=== PATIENT | male | born 1950 | race Two or more races ===

== ENCOUNTER 2022-02-09 15:04 | Inpatient (IN) | payer MEDICARE ==
[~2022-02-09] VITALS: Ht 152.4 cm; Wt 75.0 kg
[2022-02-09 16:10] LABS: COVID AG,FIA SOURCE NASAL SWAB
[2022-02-09 16:13] LABS: BASOPHILS % (AUTO) 0.5 % (0.0-2.0); EOSINOPHILS % (AUTO) 1.4 % (1.0-6.0); HEMATOCRIT 40.3 % (41-53); HEMOGLOBIN 14.3 g/dL (13.5-17.5); LYMPHOCYTES # (AUTO) 0.7 K/uL (1.0-4.8); LYMPHOCYTES % (AUTO) 13.9 % (22.0-44.0); MEAN CORPUSCULAR HEMOGLOBIN 30.1 pg (26.0-34.0); MEAN CORPUSCULAR HGB CONC 35.5 G/dL (31.0-37.0); MEAN CORPUSCULAR VOLUME 85 fL (80-100); MONOCYTES # (AUTO) 0.3 K/uL (0.1-1.0); MONOCYTES % (AUTO) 6.1 % (2.0-9.0); NEUTROPHILS # (AUTO) 3.8 K/uL (1.8-7.7); NEUTROPHILS % (AUTO) 78.1 % (40.0-70.0); PLATELET COUNT (AUTO) 169 K/uL (150-450); RED BLOOD CELL COUNT(AUTO) 4.75 MIL/uL (4.50-5.90); RED CELL DISTRIBUTION WIDTH 13.9 % (11.5-14.5)
[2022-02-09 16:27] LABS: ANION GAP 5 mmol/L (8-16); CALCIUM, TOTAL 9.4 mg/dL (8.8-10.5); CARBON DIOXIDE 33 mmol/L (22-29); CHLORIDE 95 mmol/L (98-107); CREATININE 0.84 mg/dL (0.60-1.30); GLOMERULAR FILTR. RATE CALC > 60 mL/min (>60); GLUCOSE,RANDOM 108 mg/dL (70-110); POTASSIUM 3.3 mmol/L (3.5-5.1); SODIUM SERUM 133 mmol/L (136-145); UREA NITROGEN, BLOOD 12 mg/dL (7-18)
[2022-02-09 16:42] LABS: ALANINE AMINOTRANSFERASE 13 U/L (12-78); ALKALINE PHOSPHATASE 72 U/L (46-116); ASPARTATE AMINOTRANSFERASE 19 U/L (15-37); BILIRUBIN,TOTAL 0.9 mg/dL (0.1-1.0); THYROID STIMULATING HORMONE 3.48 uIU/mL (0.36-3.74); TOTAL PROTEIN, SERUM 7.9 g/dL (6.4-8.2)
[2022-02-09 17:50] LABS: APPEARANCE,URINE CLEAR (CLEAR); BILIRUBIN,URINE NEGATIVE (NEGATIVE); GLUCOSE, URINE (UA) NEGATIVE (NEGATIVE); KETONES,URINE NEGATIVE (NEGATIVE); LEUKOCYTE ESTERASE ,URINE NEGATIVE (NEGATIVE); NITRATE,URINE NEGATIVE (NEGATIVE); OCCULT BLOOD,URINE MODERATE (NEGATIVE); PH,URINE 6.5 (5.0-8.0); PROTEIN,URINE NEGATIVE (NEGATIVE); UROBILINOGEN,URINE <=1.0 mg/dL (<=1.0)
[2022-02-09 17:56] LABS: AMPHET/METH SCREEN,URINE NEGATIVE (NEGATIVE); BARBITURATE SCREEN, URINE NEGATIVE (NEGATIVE); BENZODIAZEPINES SCREEN,URINE NEGATIVE (NEGATIVE); CANNABINOID SCREEN,URINE NEGATIVE (NEGATIVE); COCAINE SCREEN,URINE NEGATIVE (NEGATIVE); METHADONE SCREEN, URINE NEGATIVE (NEGATIVE); OPIATE SCREEN,URINE NEGATIVE (NEGATIVE)
[2022-02-09 18:03] LABS: PHENCYCLIDINE SCREEN,URINE NEGATIVE (NEGATIVE)
[2022-02-09 18:31] LABS: BACTERIA,URINE None Seen /HPF (None Seen); WBC,URINE 0-2 /HPF (0-5)
[2022-02-09] MEDS ORDERED: ZOLPIDEM TARTRATE 10 MG TABLET PO PRN (21:30)
[2022-02-09] MEDS ORDERED: HALOPERIDOL 5 MG TABLET PO PRN (21:30)
[2022-02-10 01:05] VITALS: BP 149/71
[2022-02-10] MEDS ORDERED: CloNIDine HCL 0.1 MG TABLET PO PRN (06:45)
[2022-02-10] MEDS ORDERED: BENZOCAINE/MENTHOL LOZENGE PO PRN (06:45)
[2022-02-10] MEDS ORDERED: IBUPROFEN 600 MG TABLET PO PRN (06:45)
[2022-02-10] MEDS ORDERED: DOCUSATE SODIUM 100 MG CAPSULE PO PRN (06:45)
[2022-02-10] MEDS ORDERED: ONDANSETRON HCL 4 MG TABLET PO PRN (06:45)
[2022-02-10] MEDS ORDERED: POTASSIUM CHLORIDE 20 MEQ ER TABLET PO ONE (06:45)
[2022-02-10] MEDS ORDERED: PETROLATUM,WHITE 28 GM JELLY TP PRN (06:45)
[2022-02-10] MEDS ORDERED: MAG HYDROX/AL HYDROX/SIMETH ES 30 ML SUSPENSION UDCUP PO PRN (06:45)
[2022-02-10] MEDS ORDERED: ALBUTEROL SULFATE HFA 90 MCG/PUFF 8 GM INHALER IH PRN (06:45)
[2022-02-10] MEDS ORDERED: MAGNESIUM HYDROXIDE SUSPENSION 30 ML UDCUP PO PRN (06:45)
[2022-02-10] MEDS ORDERED: BACITRACIN 28 GM OINTMENT TP PRN (06:45)
[2022-02-10 08:09] VITALS: BP 128/55
[2022-02-10 09:01] VITALS: BP 128/55
[2022-02-10 13:37] VITALS: BP 128/55
[2022-02-10 16:08] VITALS: BP 111/74
[2022-02-10 16:11] VITALS: BP 111/67
[2022-02-10] MEDS: RisperiDONE 0.5 MG TABLET PO SCH (20:16)
[2022-02-10] MEDS: TraZODone HCL 50 MG TABLET PO SCH (20:16)
[2022-02-11 06:46] LABS: ANION GAP 5 mmol/L (8-16); CALCIUM, TOTAL 9.1 mg/dL (8.8-10.5); CARBON DIOXIDE 29 mmol/L (22-29); CHLORIDE 101 mmol/L (98-107); CREATININE 0.78 mg/dL (0.60-1.30); GLOMERULAR FILTR. RATE CALC > 60 mL/min (>60); GLUCOSE,RANDOM 87 mg/dL (70-110); POTASSIUM 3.9 mmol/L (3.5-5.1); SODIUM SERUM 135 mmol/L (136-145); UREA NITROGEN, BLOOD 18 mg/dL (7-18)
[2022-02-11 08:00] VITALS: BP 116/80
[2022-02-11] MEDS: ESCITALOPRAM OXALATE 10 MG TABLET PO SCH (10:24)
[2022-02-11 16:09] VITALS: BP 135/79
[2022-02-11] MEDS: RisperiDONE 0.5 MG TABLET PO SCH (20:05)
[2022-02-11] MEDS: TraZODone HCL 50 MG TABLET PO SCH (20:05)
[2022-02-12 04:01] VITALS: BP 131/96
[2022-02-12] MEDS: LORazepam 2 MG TABLET PO PRN (04:12)
[2022-02-12] MEDS: ESCITALOPRAM OXALATE 10 MG TABLET PO SCH (08:24)
[2022-02-12 08:55] VITALS: BP 134/76
[2022-02-12 16:31] VITALS: BP 119/69
[2022-02-12] MEDS: RisperiDONE 0.5 MG TABLET PO SCH (20:08)
[2022-02-12] MEDS: TraZODone HCL 50 MG TABLET PO SCH (20:08)
[2022-02-13 08:22] VITALS: BP 119/58
[2022-02-13] MEDS: ESCITALOPRAM OXALATE 10 MG TABLET PO SCH (09:05)
[2022-02-13 12:13] VITALS: BP 125/64
[2022-02-13] MEDS: ACETAMINOPHEN 325 MG TABLET PO PRN (12:13)
[2022-02-13 13:14] VITALS: BP 132/62
[2022-02-13 16:03] VITALS: BP 120/75
[2022-02-13] MEDS: RisperiDONE 0.5 MG TABLET PO SCH (20:11)
[2022-02-13] MEDS: TraZODone HCL 50 MG TABLET PO SCH (20:11)
[2022-02-14 00:34] VITALS: BP 131/61
[2022-02-14] MEDS: ACETAMINOPHEN 325 MG TABLET PO PRN (00:34)
[2022-02-14] MEDS: LORazepam 2 MG TABLET PO PRN (00:34)
[2022-02-14] MEDS: ESCITALOPRAM OXALATE 10 MG TABLET PO SCH (08:27)
[2022-02-14 08:40] VITALS: BP 155/78
[2022-02-14] MEDS: OMEPRAZOLE 20 MG CAPSULE PO PRN (12:36)
[2022-02-14 17:00] VITALS: BP_SYST 115; BP_SYST 121; BP_DIAS 70; BP_DIAS 73
[2022-02-14] MEDS: TraZODone HCL 50 MG TABLET PO SCH (20:07)
[2022-02-14] MEDS: RisperiDONE 0.5 MG TABLET PO SCH (20:07)
[2022-02-15] MEDS: ESCITALOPRAM OXALATE 10 MG TABLET PO SCH (09:31)
[2022-02-15] MEDS: LOPERAMIDE HCL 2 MG CAPSULE PO PRN ×2 (10:44→17:01)
[2022-02-15 16:55] VITALS: BP 121/67
[2022-02-15] MEDS: TraZODone HCL 50 MG TABLET PO SCH (20:20)
[2022-02-15] MEDS: RisperiDONE 0.5 MG TABLET PO SCH (20:20)
[2022-02-15 21:10] LABS: HEMOGLOBIN 13.8 g/dL (13.5-17.5)
[2022-02-16 01:42] VITALS: BP 122/57
[2022-02-16] MEDS: ACETAMINOPHEN 325 MG TABLET PO PRN (01:42)
[2022-02-16] MEDS: LORazepam 2 MG TABLET PO PRN (01:42)
[2022-02-16 02:42] VITALS: BP 122/57
[2022-02-16 06:36] LABS: C.DIFF GDH ANTIGEN, Stool Negative (Negative); C.DIFF TOXINS A&B, Stool Negative (Negative)
[2022-02-16 08:01] VITALS: BP 104/41
[2022-02-16] MEDS: ESCITALOPRAM OXALATE 10 MG TABLET PO SCH (08:06)
[2022-02-16 13:23] LABS: COVID AG,FIA SOURCE NASAL SWAB
[2022-02-16 16:08] VITALS: BP 115/59
[2022-02-16] MEDS: LOPERAMIDE HCL 2 MG CAPSULE PO PRN (18:53)
[2022-02-16] MEDS: RisperiDONE 0.5 MG TABLET PO SCH (20:10)
[2022-02-16] MEDS: TraZODone HCL 50 MG TABLET PO SCH (20:10)
[2022-02-17 00:37] VITALS: BP 118/65
[2022-02-17 08:05] VITALS: BP 137/61
[2022-02-17] MEDS: ESCITALOPRAM OXALATE 10 MG TABLET PO SCH (10:04)
[2022-02-17] MEDS: POLYETHYLENE GLYCOL 3350 17 GM PACKET PO SCH (10:05)
[2022-02-17] MEDS: SENNA 218 MG/5 ML LIQUID ORAL.SYG PO SCH ×2 (10:06→17:00)
[2022-02-17] MEDS: PHENYLEPHRINE/SHK LV/MIN OIL/PET 57 GM OINTMENT TP SCH ×2 (10:08→17:02)
[2022-02-17] MEDS: OMEPRAZOLE 20 MG CAPSULE PO PRN (11:33)
[2022-02-17] MEDS: LOPERAMIDE HCL 2 MG CAPSULE PO PRN (17:03)
[2022-02-17 17:52] VITALS: BP 106/68
[2022-02-17] MEDS: RisperiDONE 0.5 MG TABLET PO SCH (20:29)
[2022-02-17] MEDS: TraZODone HCL 50 MG TABLET PO SCH (20:29)
[2022-02-18 06:40] VITALS: BP 117/56
[2022-02-18] MEDS: POLYETHYLENE GLYCOL 3350 17 GM PACKET PO SCH (08:26)
[2022-02-18] MEDS: SENNA 218 MG/5 ML LIQUID ORAL.SYG PO SCH ×2 (08:27→16:42)
[2022-02-18] MEDS: PHENYLEPHRINE/SHK LV/MIN OIL/PET 57 GM OINTMENT TP SCH ×2 (08:27→16:17)
[2022-02-18] MEDS: ESCITALOPRAM OXALATE 10 MG TABLET PO SCH (08:28)
[2022-02-18 08:44] VITALS: BP 114/58
[2022-02-18] MEDS: LOPERAMIDE HCL 2 MG CAPSULE PO PRN ×2 (15:55→20:14)
[2022-02-18 16:03] VITALS: BP 127/63
[2022-02-18] MEDS: TraZODone HCL 50 MG TABLET PO SCH (20:14)
[2022-02-18] MEDS: RisperiDONE 0.5 MG TABLET PO SCH (20:14)
[2022-02-19 08:30] VITALS: BP 111/56
[2022-02-19] MEDS: SENNA 218 MG/5 ML LIQUID ORAL.SYG PO SCH ×2 (08:35→16:31)
[2022-02-19] MEDS: ESCITALOPRAM OXALATE 10 MG TABLET PO SCH (08:36)
[2022-02-19] MEDS: PHENYLEPHRINE/SHK LV/MIN OIL/PET 57 GM OINTMENT TP SCH ×2 (08:36→16:31)
[2022-02-19] MEDS: POLYETHYLENE GLYCOL 3350 17 GM PACKET PO SCH ×2 (08:38→09:00)
[2022-02-19 10:48] VITALS: BP 111/42
[2022-02-19 16:15] VITALS: BP 145/60
[2022-02-19] MEDS: TraZODone HCL 50 MG TABLET PO SCH (20:30)
[2022-02-19] MEDS: RisperiDONE 0.5 MG TABLET PO SCH (20:30)
[2022-02-20] MEDS: POLYETHYLENE GLYCOL 3350 17 GM PACKET PO SCH (09:29)
[2022-02-20] MEDS: SENNA 218 MG/5 ML LIQUID ORAL.SYG PO SCH ×3 (09:29→17:00)
[2022-02-20] MEDS: ESCITALOPRAM OXALATE 10 MG TABLET PO SCH (09:29)
[2022-02-20 09:32] VITALS: BP 118/59
[2022-02-20 16:11] VITALS: BP 120/57
[2022-02-20] MEDS: RisperiDONE 0.5 MG TABLET PO SCH (20:05)
[2022-02-20] MEDS: TraZODone HCL 50 MG TABLET PO SCH (20:05)
[2022-02-21 08:41] VITALS: BP 124/62
[2022-02-21] MEDS: SENNA 218 MG/5 ML LIQUID ORAL.SYG PO SCH ×3 (09:00→17:00)
[2022-02-21] MEDS: POLYETHYLENE GLYCOL 3350 17 GM PACKET PO SCH (09:00)
[2022-02-21] MEDS: ESCITALOPRAM OXALATE 10 MG TABLET PO SCH (09:15)
[2022-02-21 16:26] VITALS: BP 104/54
[2022-02-21] MEDS: RisperiDONE 0.5 MG TABLET PO SCH (20:30)
[2022-02-21] MEDS: TraZODone HCL 50 MG TABLET PO SCH (20:30)
[2022-02-21] MEDS: LOPERAMIDE HCL 2 MG CAPSULE PO PRN (22:05)
[2022-02-22] MEDS: LOPERAMIDE HCL 2 MG CAPSULE PO PRN (07:07)
[2022-02-22 08:00] VITALS: BP 121/58
[2022-02-22] MEDS: POLYETHYLENE GLYCOL 3350 17 GM PACKET PO SCH (10:00)
[2022-02-22] MEDS: ESCITALOPRAM OXALATE 10 MG TABLET PO SCH (10:00)
[2022-02-22 17:09] VITALS: BP 140/80
[2022-02-22] MEDS: TraZODone HCL 50 MG TABLET PO SCH (20:26)
[2022-02-22] MEDS: RisperiDONE 0.5 MG TABLET PO SCH (20:26)
[2022-02-23 09:00] VITALS: BP 117/59
[2022-02-23] MEDS: ESCITALOPRAM OXALATE 10 MG TABLET PO SCH (09:00)
[2022-02-23] MEDS: POLYETHYLENE GLYCOL 3350 17 GM PACKET PO SCH (09:02)
[2022-02-23 16:59] VITALS: BP 125/69
[2022-02-23] MEDS: TraZODone HCL 50 MG TABLET PO SCH (20:03)
[2022-02-23] MEDS: RisperiDONE 0.5 MG TABLET PO SCH (20:03)
[2022-02-23 21:05] LABS: COVID AG,FIA SOURCE NASAL SWAB
[2022-02-24 08:30] VITALS: BP 124/56
[2022-02-24] MEDS: ESCITALOPRAM OXALATE 10 MG TABLET PO SCH (09:03)
[2022-02-24] MEDS: POLYETHYLENE GLYCOL 3350 17 GM PACKET PO SCH (09:05)
[2022-02-24 16:44] VITALS: BP 103/55
[2022-02-24] MEDS: RisperiDONE 0.5 MG TABLET PO SCH (20:24)
[2022-02-24] MEDS: TraZODone HCL 50 MG TABLET PO SCH (20:24)
[2022-02-25 08:00] VITALS: BP 120/63
[2022-02-25] MEDS: POLYETHYLENE GLYCOL 3350 17 GM PACKET PO SCH (09:06)
[2022-02-25] MEDS: ESCITALOPRAM OXALATE 10 MG TABLET PO SCH (09:06)
[2022-02-25 18:10] VITALS: BP 119/63
[2022-02-25] MEDS: RisperiDONE 0.5 MG TABLET PO SCH (20:03)
[2022-02-25] MEDS: TraZODone HCL 50 MG TABLET PO SCH (20:03)
[2022-02-26 09:19] VITALS: BP 128/54
[2022-02-26] MEDS: ESCITALOPRAM OXALATE 10 MG TABLET PO SCH (09:50)
[2022-02-26] MEDS: POLYETHYLENE GLYCOL 3350 17 GM PACKET PO SCH (09:50)
[2022-02-26 16:47] VITALS: BP 124/79
[2022-02-26] MEDS: RisperiDONE 0.5 MG TABLET PO SCH (20:10)
[2022-02-26] MEDS: TraZODone HCL 50 MG TABLET PO SCH (20:10)
[2022-02-27 08:00] VITALS: BP 148/69
[2022-02-27] MEDS: POLYETHYLENE GLYCOL 3350 17 GM PACKET PO SCH (08:42)
[2022-02-27] MEDS: ESCITALOPRAM OXALATE 10 MG TABLET PO SCH (08:42)
[2022-02-27 16:23] VITALS: BP 124/76
[2022-02-27] MEDS: RisperiDONE 0.5 MG TABLET PO SCH (20:54)
[2022-02-27] MEDS: TraZODone HCL 50 MG TABLET PO SCH (20:54)
[2022-02-28] MEDS: POLYETHYLENE GLYCOL 3350 17 GM PACKET PO SCH (09:36)
[2022-02-28] MEDS: ESCITALOPRAM OXALATE 10 MG TABLET PO SCH (09:37)
[2022-02-28 11:15] VITALS: BP 147/61
[2022-02-28 13:30] VITALS: BP 145/67
[2022-02-28 16:38] VITALS: BP 134/63
[2022-02-28] MEDS: RisperiDONE 0.5 MG TABLET PO SCH (20:18)
[2022-02-28] MEDS: TraZODone HCL 50 MG TABLET PO SCH (20:18)
[2022-03-01] MEDS: POLYETHYLENE GLYCOL 3350 17 GM PACKET PO SCH (08:36)
[2022-03-01] MEDS: ESCITALOPRAM OXALATE 10 MG TABLET PO SCH (08:37)
[2022-03-01 09:58] VITALS: BP 148/72
[2022-03-01 17:15] VITALS: BP 121/76
[2022-03-01] MEDS: RisperiDONE 0.5 MG TABLET PO SCH (20:13)
[2022-03-01] MEDS: TraZODone HCL 50 MG TABLET PO SCH (20:13)
[2022-03-02 08:00] VITALS: BP 120/54
[2022-03-02] MEDS: ESCITALOPRAM OXALATE 10 MG TABLET PO SCH (09:35)
[2022-03-02] MEDS: POLYETHYLENE GLYCOL 3350 17 GM PACKET PO SCH (09:35)
[2022-03-02 10:25] LABS: COVID AG,FIA SOURCE NASOPHARYNGEAL
[2022-03-02 16:32] VITALS: BP 138/70
[2022-03-02] MEDS ORDERED: RISP0.5T66 PO (18:36)
[2022-03-02] MEDS ORDERED: TRAZ-252 PO (18:36)
[2022-03-02] MEDS ORDERED: ESCI10 PO (18:36)
[2022-03-02] MEDS ORDERED: MEMA28CA PO (18:36)
[2022-03-02] MEDS ORDERED: MEMANTINE HCL 10 MG TABLET PO SCH (18:45)
[2022-03-02] MEDS: RisperiDONE 0.5 MG TABLET PO SCH (20:00)
[2022-03-02] MEDS: TraZODone HCL 50 MG TABLET PO SCH (20:00)
[2022-03-03 06:53] VITALS: BP 116/59
[2022-03-03 08:00] VITALS: BP 134/62
[2022-03-03] MEDS: POLYETHYLENE GLYCOL 3350 17 GM PACKET PO SCH (08:19)
[2022-03-03] MEDS: ESCITALOPRAM OXALATE 10 MG TABLET PO SCH (08:21)
[2022-03-03] MEDS ORDERED: MEMANTINE HCL 5 MG TABLET PO SCH (09:00)
[2022-03-03] MEDS: OMEPRAZOLE 20 MG CAPSULE PO PRN (12:35)
== END 2022-03-03 15:28 | disposition home health service (06) | DRG 885 ==
LOC: EMS 15:13 → 3EX 02-10 00:01
PROVIDERS: ADMIT Psychiatry & Neurology Psychiatry; ATTEND Psychiatry & Neurology Psychiatry
DX: F20.9 Schizophrenia, unspecified (principal); F03.91 Unspecified dementia, unspecified severity, with behavioral disturbance; E87.1 Hypo-osmolality and hyponatremia; E87.6 Hypokalemia; I10 Essential (primary) hypertension; K21.9 Gastro-esophageal reflux disease without esophagitis; F32.A Depression, unspecified; F41.9 Anxiety disorder, unspecified; Z20.822 Contact with and (suspected) exposure to COVID-19
CPT/HCPCS: 80048; 80053; 81001; 84443; 85014; 85018; 85025; 87081; 87324; 87449; 99285; G0378; G0480

== ENCOUNTER 2022-04-05 13:00 | Inpatient (IN) | payer MEDICARE ==
[~2022-04-05] VITALS: Ht 180.3 cm; Wt 70.6 kg
[~2022-04-05 13:00] MED LIST: ESCI10 PO; MEMA28CA PO; RISP0.5T66 PO; TRAZ-252 PO
[2022-04-05 14:16] LABS: BASOPHILS % (AUTO) 0.4 % (0.0-2.0); EOSINOPHILS % (AUTO) 0.4 % (1.0-6.0); HEMATOCRIT 38.8 % (41-53); HEMOGLOBIN 13.8 g/dL (13.5-17.5); LYMPHOCYTES # (AUTO) 0.6 K/uL (1.0-4.8); LYMPHOCYTES % (AUTO) 9.1 % (22.0-44.0); MEAN CORPUSCULAR HGB CONC 35.5 G/dL (31.0-37.0); MEAN CORPUSCULAR VOLUME 85 fL (80-100); MONOCYTES # (AUTO) 0.5 K/uL (0.1-1.0); MONOCYTES % (AUTO) 7.6 % (2.0-9.0); NEUTROPHILS # (AUTO) 5.2 K/uL (1.8-7.7); NEUTROPHILS % (AUTO) 82.5 % (40.0-70.0); PLATELET COUNT (AUTO) 176 K/uL (150-450); RED BLOOD CELL COUNT(AUTO) 4.58 MIL/uL (4.50-5.90); RED CELL DISTRIBUTION WIDTH 13.9 % (11.5-14.5)
[2022-04-05 14:39] LABS: ALANINE AMINOTRANSFERASE 11 U/L (12-78); ALBUMIN 3.6 g/dL (3.4-5.0); ALKALINE PHOSPHATASE 67 U/L (46-116); ASPARTATE AMINOTRANSFERASE 29 U/L (15-37); CALCIUM, TOTAL 9.1 mg/dL (8.8-10.5); CARBON DIOXIDE 31 mmol/L (22-29); CREATININE 0.86 mg/dL (0.60-1.30); GLOMERULAR FILTR. RATE CALC > 60 mL/min (>60); GLUCOSE,RANDOM 164 mg/dL (70-110); TOTAL PROTEIN, SERUM 7.3 g/dL (6.4-8.2); UREA NITROGEN, BLOOD 14 mg/dL (7-18)
[2022-04-05 14:50] LABS: ANION GAP 4 mmol/L (8-16); CHLORIDE 89 mmol/L (98-107); POTASSIUM 3.7 mmol/L (3.5-5.1)
[2022-04-05 14:53] LABS: SODIUM SERUM 124 mmol/L (136-145)
[2022-04-05] MEDS ORDERED: SODIUM CHLORIDE 0.9% 1,000 ML IV ONE (15:00)
[2022-04-05] MEDS ORDERED: LORazepam 2 MG TABLET PO PRN (15:00)
[2022-04-05] MEDS ORDERED: OLANZapine 5 MG RAPDIS TABLET PO PRN (15:00)
[2022-04-05] MEDS ORDERED: ZOLPIDEM TARTRATE 10 MG TABLET PO PRN (15:00)
[2022-04-05] MEDS ORDERED: ONDANSETRON HCL 4 MG/2 ML VIAL IVP PRN (15:30)
[2022-04-05] MEDS ORDERED: ACETAMINOPHEN 325 MG TABLET PO PRN (15:30)
[2022-04-05 17:00] LABS: COVID AG,FIA SOURCE NASOPHARYNGEAL
[2022-04-05 17:14] LABS: AMPHET/METH SCREEN,URINE NEGATIVE (NEGATIVE); BARBITURATE SCREEN, URINE NEGATIVE (NEGATIVE); BENZODIAZEPINES SCREEN,URINE NEGATIVE (NEGATIVE); CANNABINOID SCREEN,URINE NEGATIVE (NEGATIVE); COCAINE SCREEN,URINE NEGATIVE (NEGATIVE); METHADONE SCREEN, URINE NEGATIVE (NEGATIVE); OPIATE SCREEN,URINE NEGATIVE (NEGATIVE)
[2022-04-05 17:17] LABS: PHENCYCLIDINE SCREEN,URINE NEGATIVE (NEGATIVE)
[2022-04-05 20:25] VITALS: BP 145/82
[2022-04-06] VITALS (8 sets, daily range): BP systolic 125–170; BP diastolic 54–90
[2022-04-06] MEDS: MELATONIN 3 MG TABLET PO SCH ×2 (00:48→20:50)
[2022-04-06 10:32] LABS: BASOPHILS % (AUTO) 0.4 % (0.0-2.0); EOSINOPHILS % (AUTO) 1.2 % (1.0-6.0); HEMATOCRIT 37.7 % (41-53); HEMOGLOBIN 13.1 g/dL (13.5-17.5); LYMPHOCYTES # (AUTO) 0.6 K/uL (1.0-4.8); LYMPHOCYTES % (AUTO) 10.9 % (22.0-44.0); MEAN CORPUSCULAR HEMOGLOBIN 29.4 pg (26.0-34.0); MEAN CORPUSCULAR HGB CONC 34.7 G/dL (31.0-37.0); MEAN CORPUSCULAR VOLUME 85 fL (80-100); MONOCYTES # (AUTO) 0.5 K/uL (0.1-1.0); MONOCYTES % (AUTO) 8.4 % (2.0-9.0); NEUTROPHILS # (AUTO) 4.3 K/uL (1.8-7.7); NEUTROPHILS % (AUTO) 79.1 % (40.0-70.0); PLATELET COUNT (AUTO) 185 K/uL (150-450); RED BLOOD CELL COUNT(AUTO) 4.44 MIL/uL (4.50-5.90)
[2022-04-06 10:36] LABS: ANION GAP 5 mmol/L (8-16); CALCIUM, TOTAL 8.9 mg/dL (8.8-10.5); CARBON DIOXIDE 29 mmol/L (22-29); CHLORIDE 97 mmol/L (98-107); CREATININE 0.79 mg/dL (0.60-1.30); GLOMERULAR FILTR. RATE CALC > 60 mL/min (>60); GLUCOSE,RANDOM 117 mg/dL (70-110); POTASSIUM 3.7 mmol/L (3.5-5.1); SODIUM SERUM 131 mmol/L (136-145); UREA NITROGEN, BLOOD 13 mg/dL (7-18)
[2022-04-07 04:40] VITALS: BP 146/84
[2022-04-07 08:35] VITALS: BP 151/84
[2022-04-07 11:30] VITALS: BP 156/71
[2022-04-07] MEDS ORDERED: MORPHINE SULFATE 2 MG/ML SYRINGE IVP PRN (13:45)
[2022-04-07] MEDS ORDERED: IPRATROPIUM BROMIDE 0.5 MG/2.5 ML NEB SOLUTION NEB PRN (13:45)
[2022-04-07] MEDS ORDERED: ALBUTEROL SULFATE 2.5 MG/0.5 ML NEB SOLUTION NEB PRN (13:45)
[2022-04-07] MEDS ORDERED: ZOLPIDEM TARTRATE 5 MG TABLET PO PRN (13:45)
[2022-04-07] MEDS ORDERED: HYDROCODONE/ACETAMINOPHEN 5-325 MG TABLET PO PRN (13:45)
[2022-04-07] MEDS ORDERED: BISACODYL 10 MG RECTAL RECTAL SUPPOSITORY PR PRN (13:45)
[2022-04-07] MEDS ORDERED: MAGNESIUM HYDROXIDE SUSPENSION 30 ML UDCUP PO PRN (13:45)
[2022-04-07] MEDS ORDERED: ONDANSETRON HCL 4 MG/2 ML VIAL IVP PRN (13:45)
[2022-04-07 15:51] VITALS: BP 159/71
[2022-04-07] MEDS: HEPARIN SODIUM,PORCINE 5,000 UNITS/ML VIAL SQ SCH (16:00)
[2022-04-07 20:00] VITALS: BP 128/79
[2022-04-07] MEDS: MELATONIN 3 MG TABLET PO SCH (23:10)
[2022-04-08 04:55] VITALS: BP 150/71
[2022-04-08 07:55] VITALS: BP 148/73
[2022-04-08] MEDS: HEPARIN SODIUM,PORCINE 5,000 UNITS/ML VIAL SQ SCH ×4 (08:36→23:36)
[2022-04-08 11:59] VITALS: BP 153/79
[2022-04-08 16:01] VITALS: BP 123/65
[2022-04-08 20:47] VITALS: BP 118/56
[2022-04-08] MEDS: ACETAMINOPHEN 325 MG TABLET PO PRN (21:21)
[2022-04-08] MEDS: MELATONIN 3 MG TABLET PO SCH (21:21)
[2022-04-09 00:40] VITALS: BP 107/65
[2022-04-09 03:55] VITALS: BP 98/45
[2022-04-09 08:30] VITALS: BP 147/74
[2022-04-09] MEDS: HEPARIN SODIUM,PORCINE 5,000 UNITS/ML VIAL SQ SCH (08:36)
[2022-04-09 12:10] VITALS: BP 140/69
[2022-04-09 16:00] VITALS: BP 141/71
[2022-04-09 19:43] VITALS: BP 155/73
[2022-04-09] MEDS: MELATONIN 3 MG TABLET PO SCH (21:37)
[2022-04-10] VITALS (7 sets, daily range): BP systolic 114–171; BP diastolic 53–78
[2022-04-10] MEDS: HEPARIN SODIUM,PORCINE 5,000 UNITS/ML VIAL SQ SCH ×4 (00:23→23:24)
[2022-04-10] MEDS: ACETAMINOPHEN 325 MG TABLET PO PRN ×2 (06:49→17:59)
[2022-04-10] MEDS: MELATONIN 3 MG TABLET PO SCH (20:21)
[2022-04-10] MEDS: LORazepam 1 MG TABLET PO PRN (23:25)
[2022-04-11 05:17] VITALS: BP 138/66
[2022-04-11 05:28] LABS: BASOPHILS % (AUTO) 0.7 % (0.0-2.0); EOSINOPHILS % (AUTO) 3.5 % (1.0-6.0); HEMATOCRIT 36.7 % (41-53); LYMPHOCYTES # (AUTO) 1.1 K/uL (1.0-4.8); LYMPHOCYTES % (AUTO) 20.4 % (22.0-44.0); MEAN CORPUSCULAR HGB CONC 35.3 G/dL (31.0-37.0); MEAN CORPUSCULAR VOLUME 85 fL (80-100); MONOCYTES # (AUTO) 0.5 K/uL (0.1-1.0); MONOCYTES % (AUTO) 9.5 % (2.0-9.0); NEUTROPHILS # (AUTO) 3.5 K/uL (1.8-7.7); NEUTROPHILS % (AUTO) 65.9 % (40.0-70.0); PLATELET COUNT (AUTO) 175 K/uL (150-450); RED BLOOD CELL COUNT(AUTO) 4.31 MIL/uL (4.50-5.90)
[2022-04-11 05:44] LABS: ANION GAP 6 mmol/L (8-16); CALCIUM, TOTAL 8.8 mg/dL (8.8-10.5); CARBON DIOXIDE 28 mmol/L (22-29); CHLORIDE 100 mmol/L (98-107); GLOMERULAR FILTR. RATE CALC > 60 mL/min (>60); GLUCOSE,RANDOM 86 mg/dL (70-110); POTASSIUM 4.1 mmol/L (3.5-5.1); SODIUM SERUM 134 mmol/L (136-145); UREA NITROGEN, BLOOD 20 mg/dL (7-18)
[2022-04-11 07:23] VITALS: BP 130/68
[2022-04-11] MEDS: HEPARIN SODIUM,PORCINE 5,000 UNITS/ML VIAL SQ SCH ×3 (08:29→22:49)
[2022-04-11] MEDS: LORazepam 1 MG TABLET PO PRN ×2 (12:36→22:49)
[2022-04-11 14:57] VITALS: BP 128/72
[2022-04-11 19:40] VITALS: BP 147/80
[2022-04-11] MEDS: MELATONIN 3 MG TABLET PO SCH (20:29)
[2022-04-12 03:35] VITALS: BP 106/50
[2022-04-12 07:17] VITALS: BP 112/58
[2022-04-12] MEDS: HEPARIN SODIUM,PORCINE 5,000 UNITS/ML VIAL SQ SCH ×2 (08:00→16:00)
[2022-04-12] MEDS: ACETAMINOPHEN 325 MG TABLET PO PRN (11:37)
[2022-04-12] MEDS: LORazepam 1 MG TABLET PO PRN (11:37)
[2022-04-12 15:01] VITALS: BP 122/62
[2022-04-12 16:25] LABS: COVID AG,FIA SOURCE NASAL SWAB
== END 2022-04-12 19:30 | DRG 641 ==
LOC: EMS 13:00 → 5S 14:47 → 6S 04-10 18:25
PROVIDERS: ADMIT Psychiatry & Neurology Psychiatry; ATTEND Internal Medicine
DX: E87.1 Hypo-osmolality and hyponatremia (principal); F03.90 Unspecified dementia, unspecified severity, without behavioral disturbance, psychotic disturbance, mood disturbance, and anxiety; I10 Essential (primary) hypertension; R29.6 Repeated falls; Z20.822 Contact with and (suspected) exposure to COVID-19; F25.9 Schizoaffective disorder, unspecified; F32.A Depression, unspecified; F79 Unspecified intellectual disabilities; R62.7 Adult failure to thrive; Z68.21 Body mass index [BMI] 21.0-21.9, adult
CPT/HCPCS: 70450; 70486; 71045; 74018; 80048; 80053; 83935; 84300; 85025; 87081; 93005; 99285; G0480; J1644; 36415-L1; 36415-TC

== ENCOUNTER 2022-04-12 16:03 | Inpatient (IN) | payer MEDICARE ==
[~2022-04-12] VITALS: Ht 180.3 cm; Wt 74.4 kg
[2022-04-12 19:30] VITALS: BP 143/81
[2022-04-12] MEDS ORDERED: HALOPERIDOL 5 MG TABLET PO PRN (20:15)
[2022-04-12] MEDS: TraZODone HCL 50 MG TABLET PO SCH (21:35)
[2022-04-12] MEDS: RisperiDONE 0.5 MG TABLET PO SCH (21:36)
[2022-04-12] MEDS: ZOLPIDEM TARTRATE 10 MG TABLET PO PRN (21:51)
[2022-04-12] MEDS ORDERED: ALBUTEROL SULFATE HFA 90 MCG/PUFF 8 GM INHALER IH PRN (23:00)
[2022-04-12] MEDS ORDERED: PETROLATUM,WHITE 28 GM JELLY TP PRN (23:00)
[2022-04-12] MEDS ORDERED: LOPERAMIDE HCL 2 MG CAPSULE PO PRN (23:00)
[2022-04-12] MEDS ORDERED: OMEPRAZOLE 20 MG CAPSULE PO PRN (23:00)
[2022-04-12] MEDS ORDERED: BENZOCAINE/MENTHOL LOZENGE PO PRN (23:00)
[2022-04-12] MEDS ORDERED: DOCUSATE SODIUM 100 MG CAPSULE PO PRN (23:00)
[2022-04-12] MEDS ORDERED: MAGNESIUM HYDROXIDE SUSPENSION 30 ML UDCUP PO PRN (23:00)
[2022-04-12] MEDS ORDERED: ONDANSETRON HCL 4 MG TABLET PO PRN (23:00)
[2022-04-12] MEDS ORDERED: CloNIDine HCL 0.1 MG TABLET PO PRN (23:00)
[2022-04-12] MEDS ORDERED: ACETAMINOPHEN 325 MG TABLET PO PRN (23:00)
[2022-04-12] MEDS ORDERED: BACITRACIN 28 GM OINTMENT TP PRN (23:00)
[2022-04-12] MEDS ORDERED: IBUPROFEN 600 MG TABLET PO PRN (23:00)
[2022-04-12] MEDS ORDERED: MAG HYDROX/AL HYDROX/SIMETH ES 30 ML SUSPENSION UDCUP PO PRN (23:00)
[2022-04-13 08:00] VITALS: BP_SYST 104; BP_SYST 144; BP_DIAS 68
[2022-04-13] MEDS: ESCITALOPRAM OXALATE 10 MG TABLET PO SCH (08:12)
[2022-04-13] MEDS: LISINOPRIL 5 MG TABLET PO SCH (08:12)
[2022-04-13] MEDS: MEMANTINE HCL 5 MG TABLET PO SCH ×2 (08:13→16:10)
[2022-04-13 09:26] LABS: BASOPHILS % (AUTO) 0.5 % (0.0-2.0); EOSINOPHILS % (AUTO) 1.2 % (1.0-6.0); HEMATOCRIT 38.7 % (41-53); HEMOGLOBIN 13.5 g/dL (13.5-17.5); LYMPHOCYTES # (AUTO) 0.8 K/uL (1.0-4.8); LYMPHOCYTES % (AUTO) 13.9 % (22.0-44.0); MEAN CORPUSCULAR HEMOGLOBIN 30.1 pg (26.0-34.0); MEAN CORPUSCULAR HGB CONC 34.9 G/dL (31.0-37.0); MEAN CORPUSCULAR VOLUME 86 fL (80-100); MONOCYTES # (AUTO) 0.4 K/uL (0.1-1.0); MONOCYTES % (AUTO) 6.9 % (2.0-9.0); NEUTROPHILS # (AUTO) 4.4 K/uL (1.8-7.7); NEUTROPHILS % (AUTO) 77.5 % (40.0-70.0); PLATELET COUNT (AUTO) 171 K/uL (150-450); RED BLOOD CELL COUNT(AUTO) 4.48 MIL/uL (4.50-5.90); RED CELL DISTRIBUTION WIDTH 14.3 % (11.5-14.5)
[2022-04-13 19:00] VITALS: BP 120/80
[2022-04-13] MEDS: TraZODone HCL 50 MG TABLET PO SCH (20:41)
[2022-04-13] MEDS: RisperiDONE 0.5 MG TABLET PO SCH (20:41)
[2022-04-14 00:35] VITALS: BP 104/60
[2022-04-14] MEDS: ZOLPIDEM TARTRATE 10 MG TABLET PO PRN (00:48)
[2022-04-14 08:16] VITALS: BP 116/50
[2022-04-14] MEDS: ESCITALOPRAM OXALATE 10 MG TABLET PO SCH (09:32)
[2022-04-14] MEDS: LISINOPRIL 5 MG TABLET PO SCH ×2 (09:32→12:48)
[2022-04-14] MEDS: CARBIDOPA/LEVODOPA 25-100 MG TABLET PO SCH ×3 (09:33→16:37)
[2022-04-14] MEDS: MEMANTINE HCL 5 MG TABLET PO SCH ×2 (09:34→16:37)
[2022-04-14 16:00] VITALS: BP 109/61
[2022-04-14] MEDS: RisperiDONE 0.5 MG TABLET PO SCH (20:29)
[2022-04-14] MEDS: TraZODone HCL 50 MG TABLET PO SCH (20:29)
[2022-04-15 04:50] VITALS: BP 125/65
[2022-04-15] MEDS: LORazepam 2 MG TABLET PO PRN ×2 (04:54→23:55)
[2022-04-15] MEDS: LISINOPRIL 5 MG TABLET PO SCH (09:28)
[2022-04-15] MEDS: CARBIDOPA/LEVODOPA 25-100 MG TABLET PO SCH ×3 (09:29→16:19)
[2022-04-15] MEDS: MEMANTINE HCL 5 MG TABLET PO SCH ×2 (09:29→16:19)
[2022-04-15] MEDS: ESCITALOPRAM OXALATE 10 MG TABLET PO SCH (09:29)
[2022-04-15 11:14] VITALS: BP 93/54
[2022-04-15 12:39] VITALS: BP 104/63
[2022-04-15 16:02] VITALS: BP 130/65
[2022-04-15] MEDS: RisperiDONE 0.5 MG TABLET PO SCH (20:04)
[2022-04-15] MEDS: TraZODone HCL 50 MG TABLET PO SCH (20:04)
[2022-04-16 08:06] VITALS: BP 108/63
[2022-04-16] MEDS: ESCITALOPRAM OXALATE 10 MG TABLET PO SCH (08:34)
[2022-04-16] MEDS: LISINOPRIL 5 MG TABLET PO SCH (08:34)
[2022-04-16] MEDS: MEMANTINE HCL 5 MG TABLET PO SCH ×2 (08:35→17:00)
[2022-04-16] MEDS: CARBIDOPA/LEVODOPA 25-100 MG TABLET PO SCH ×3 (08:35→17:00)
[2022-04-16 16:18] VITALS: BP 108/41
[2022-04-16 17:33] LABS: APPEARANCE,URINE CLEAR (CLEAR); BILIRUBIN,URINE NEGATIVE (NEGATIVE); GLUCOSE, URINE (UA) NEGATIVE (NEGATIVE); KETONES,URINE NEGATIVE (NEGATIVE); LEUKOCYTE ESTERASE ,URINE NEGATIVE (NEGATIVE); NITRATE,URINE NEGATIVE (NEGATIVE); OCCULT BLOOD,URINE MODERATE (NEGATIVE); PROTEIN,URINE NEGATIVE (NEGATIVE); SPECIFIC GRAVITIY, URINE 1.011 (1.003-1.030); UROBILINOGEN,URINE <=1.0 mg/dL (<=1.0)
[2022-04-16 17:56] LABS: BACTERIA,URINE None Seen /HPF (None Seen); RBC,URINE 0-2 /HPF (0-2); SQUAMOUS EPITHELIAL CELL,UR Few /LPF (None Seen); WBC,URINE None Seen /HPF (0-5)
[2022-04-16] MEDS: TraZODone HCL 50 MG TABLET PO SCH (21:11)
[2022-04-16] MEDS: RisperiDONE 0.5 MG TABLET PO SCH (21:11)
[2022-04-16] MEDS: ZOLPIDEM TARTRATE 10 MG TABLET PO PRN (23:17)
[2022-04-17 08:07] VITALS: BP 126/68
[2022-04-17] MEDS: ESCITALOPRAM OXALATE 10 MG TABLET PO SCH (08:23)
[2022-04-17] MEDS: MEMANTINE HCL 5 MG TABLET PO SCH ×2 (08:23→16:48)
[2022-04-17] MEDS: LISINOPRIL 5 MG TABLET PO SCH (08:23)
[2022-04-17] MEDS: CARBIDOPA/LEVODOPA 25-100 MG TABLET PO SCH ×3 (08:23→16:52)
[2022-04-17 16:26] VITALS: BP 112/67
[2022-04-17] MEDS: RisperiDONE 0.5 MG TABLET PO SCH (20:34)
[2022-04-17] MEDS: TraZODone HCL 50 MG TABLET PO SCH (20:35)
[2022-04-17] MEDS: ZOLPIDEM TARTRATE 10 MG TABLET PO PRN (23:47)
[2022-04-18 00:05] VITALS: BP 116/69
[2022-04-18 08:05] VITALS: BP 110/58
[2022-04-18] MEDS: MEMANTINE HCL 5 MG TABLET PO SCH ×2 (08:13→16:37)
[2022-04-18] MEDS: ESCITALOPRAM OXALATE 10 MG TABLET PO SCH (08:13)
[2022-04-18] MEDS: CARBIDOPA/LEVODOPA 25-100 MG TABLET PO SCH ×3 (08:13→16:37)
[2022-04-18] MEDS: LISINOPRIL 5 MG TABLET PO SCH (08:14)
[2022-04-18 10:37] LABS: COVID AG,FIA SOURCE NASAL SWAB
[2022-04-18 16:09] VITALS: BP 106/65
[2022-04-18] MEDS: TraZODone HCL 50 MG TABLET PO SCH (21:11)
[2022-04-18] MEDS: RisperiDONE 0.5 MG TABLET PO SCH (21:11)
[2022-04-19 01:56] VITALS: BP 111/63
[2022-04-19] MEDS: ZOLPIDEM TARTRATE 10 MG TABLET PO PRN (02:02)
[2022-04-19 07:04] LABS: APPEARANCE,URINE CLEAR (CLEAR); BILIRUBIN,URINE NEGATIVE (NEGATIVE); GLUCOSE, URINE (UA) NEGATIVE (NEGATIVE); KETONES,URINE NEGATIVE (NEGATIVE); LEUKOCYTE ESTERASE ,URINE NEGATIVE (NEGATIVE); NITRATE,URINE NEGATIVE (NEGATIVE); OCCULT BLOOD,URINE SMALL (NEGATIVE); PROTEIN,URINE NEGATIVE (NEGATIVE); SPECIFIC GRAVITIY, URINE 1.014 (1.003-1.030); UROBILINOGEN,URINE <=1.0 mg/dL (<=1.0)
[2022-04-19 08:29] VITALS: BP 97/46
[2022-04-19] MEDS: LISINOPRIL 5 MG TABLET PO SCH (09:00)
[2022-04-19] MEDS: CARBIDOPA/LEVODOPA 25-100 MG TABLET PO SCH ×3 (09:06→17:00)
[2022-04-19] MEDS: ESCITALOPRAM OXALATE 10 MG TABLET PO SCH (09:06)
[2022-04-19] MEDS: MEMANTINE HCL 5 MG TABLET PO SCH ×2 (09:06→17:00)
[2022-04-19 10:20] LABS: BACTERIA,URINE None Seen /HPF (None Seen); RBC,URINE 0-2 /HPF (0-2); WBC,URINE None Seen /HPF (0-5)
[2022-04-19 16:27] VITALS: BP 127/60
[2022-04-19] MEDS: TraZODone HCL 50 MG TABLET PO SCH (20:22)
[2022-04-19] MEDS: RisperiDONE 0.5 MG TABLET PO SCH (20:22)
[2022-04-20] MEDS: LISINOPRIL 5 MG TABLET PO SCH (09:01)
[2022-04-20] MEDS: ESCITALOPRAM OXALATE 10 MG TABLET PO SCH (09:02)
[2022-04-20] MEDS: CARBIDOPA/LEVODOPA 25-100 MG TABLET PO SCH ×3 (09:02→16:04)
[2022-04-20] MEDS: MEMANTINE HCL 5 MG TABLET PO SCH ×2 (09:03→16:04)
[2022-04-20 09:24] VITALS: BP 133/63
[2022-04-20 16:06] VITALS: BP 134/60
[2022-04-20] MEDS: RisperiDONE 0.5 MG TABLET PO SCH (20:16)
[2022-04-20] MEDS: TraZODone HCL 50 MG TABLET PO SCH (20:16)
[2022-04-21 04:08] VITALS: BP 140/69
[2022-04-21 08:23] VITALS: BP 140/66
[2022-04-21] MEDS: ESCITALOPRAM OXALATE 10 MG TABLET PO SCH (08:43)
[2022-04-21] MEDS: CARBIDOPA/LEVODOPA 25-100 MG TABLET PO SCH ×3 (08:43→17:15)
[2022-04-21] MEDS: MEMANTINE HCL 5 MG TABLET PO SCH ×2 (08:43→17:15)
[2022-04-21] MEDS: LISINOPRIL 5 MG TABLET PO SCH (08:43)
[2022-04-21 16:36] VITALS: BP 101/58
[2022-04-21] MEDS: RisperiDONE 0.5 MG TABLET PO SCH (20:11)
[2022-04-21] MEDS: TraZODone HCL 50 MG TABLET PO SCH (20:11)
[2022-04-22 08:22] VITALS: BP 109/52
[2022-04-22] MEDS: LISINOPRIL 5 MG TABLET PO SCH (09:00)
[2022-04-22] MEDS: ESCITALOPRAM OXALATE 10 MG TABLET PO SCH (09:33)
[2022-04-22] MEDS: CARBIDOPA/LEVODOPA 25-100 MG TABLET PO SCH ×3 (09:33→17:12)
[2022-04-22] MEDS: MEMANTINE HCL 5 MG TABLET PO SCH ×2 (09:33→17:12)
[2022-04-22 16:48] VITALS: BP 105/54
[2022-04-22] MEDS: TraZODone HCL 50 MG TABLET PO SCH (20:44)
[2022-04-22] MEDS: RisperiDONE 0.5 MG TABLET PO SCH (20:44)
[2022-04-23 09:24] VITALS: BP 125/53
[2022-04-23] MEDS: LISINOPRIL 5 MG TABLET PO SCH (09:56)
[2022-04-23] MEDS: ESCITALOPRAM OXALATE 10 MG TABLET PO SCH (09:56)
[2022-04-23] MEDS: CARBIDOPA/LEVODOPA 25-100 MG TABLET PO SCH ×3 (09:56→17:17)
[2022-04-23] MEDS: MEMANTINE HCL 5 MG TABLET PO SCH ×2 (09:56→17:17)
[2022-04-23 16:11] VITALS: BP 102/69
[2022-04-23] MEDS: TraZODone HCL 50 MG TABLET PO SCH (21:19)
[2022-04-23] MEDS: RisperiDONE 0.5 MG TABLET PO SCH (21:19)
[2022-04-24] MEDS: LISINOPRIL 5 MG TABLET PO SCH ×2 (09:00→10:14)
[2022-04-24 09:15] VITALS: BP_SYST 119; BP_DIAS 48; BP_DIAS 58
[2022-04-24] MEDS: ESCITALOPRAM OXALATE 10 MG TABLET PO SCH (10:14)
[2022-04-24] MEDS: MEMANTINE HCL 5 MG TABLET PO SCH ×2 (10:15→16:41)
[2022-04-24] MEDS: CARBIDOPA/LEVODOPA 25-100 MG TABLET PO SCH ×3 (10:15→16:41)
[2022-04-24 16:30] VITALS: BP 120/60
[2022-04-24 16:31] LABS: COVID AG,FIA SOURCE NASAL SWAB
[2022-04-24] MEDS: RisperiDONE 0.5 MG TABLET PO SCH (20:40)
[2022-04-24] MEDS: TraZODone HCL 50 MG TABLET PO SCH (20:40)
[2022-04-25 09:33] VITALS: BP 136/66
[2022-04-25] MEDS: ESCITALOPRAM OXALATE 10 MG TABLET PO SCH (10:37)
[2022-04-25] MEDS: MEMANTINE HCL 5 MG TABLET PO SCH ×2 (10:37→16:38)
[2022-04-25] MEDS: CARBIDOPA/LEVODOPA 25-100 MG TABLET PO SCH ×3 (10:37→16:37)
[2022-04-25] MEDS: LISINOPRIL 5 MG TABLET PO SCH (10:37)
[2022-04-25 16:44] VITALS: BP 130/69
[2022-04-25] MEDS: TraZODone HCL 50 MG TABLET PO SCH (20:04)
[2022-04-25] MEDS: RisperiDONE 0.5 MG TABLET PO SCH (20:04)
[2022-04-26] MEDS: LISINOPRIL 5 MG TABLET PO SCH (08:17)
[2022-04-26] MEDS: CARBIDOPA/LEVODOPA 25-100 MG TABLET PO SCH ×3 (08:17→16:03)
[2022-04-26] MEDS: ESCITALOPRAM OXALATE 10 MG TABLET PO SCH (08:18)
[2022-04-26] MEDS: MEMANTINE HCL 5 MG TABLET PO SCH ×2 (08:18→16:03)
[2022-04-26 08:30] VITALS: BP 143/60
[2022-04-26 16:00] VITALS: BP 106/69
[2022-04-26] MEDS: RisperiDONE 0.5 MG TABLET PO SCH (20:12)
[2022-04-26] MEDS: TraZODone HCL 50 MG TABLET PO SCH (20:13)
[2022-04-27 08:30] VITALS: BP 108/52
[2022-04-27] MEDS: LISINOPRIL 5 MG TABLET PO SCH (10:11)
[2022-04-27] MEDS: CARBIDOPA/LEVODOPA 25-100 MG TABLET PO SCH ×3 (10:11→17:31)
[2022-04-27] MEDS: ESCITALOPRAM OXALATE 10 MG TABLET PO SCH (10:11)
[2022-04-27] MEDS: MEMANTINE HCL 5 MG TABLET PO SCH ×2 (10:11→17:31)
[2022-04-27 16:18] VITALS: BP 124/69
[2022-04-27] MEDS: TraZODone HCL 50 MG TABLET PO SCH (20:30)
[2022-04-27] MEDS: RisperiDONE 0.5 MG TABLET PO SCH (20:30)
[2022-04-28 09:35] VITALS: BP 121/60
[2022-04-28] MEDS: CARBIDOPA/LEVODOPA 25-100 MG TABLET PO SCH ×3 (09:39→16:20)
[2022-04-28] MEDS: LISINOPRIL 5 MG TABLET PO SCH (09:39)
[2022-04-28] MEDS: ESCITALOPRAM OXALATE 10 MG TABLET PO SCH (09:39)
[2022-04-28] MEDS: MEMANTINE HCL 5 MG TABLET PO SCH ×2 (09:39→16:20)
[2022-04-28 17:00] VITALS: BP 129/70
[2022-04-28] MEDS: TraZODone HCL 50 MG TABLET PO SCH (20:54)
[2022-04-28] MEDS: RisperiDONE 0.5 MG TABLET PO SCH (20:55)
[2022-04-29] MEDS: LISINOPRIL 5 MG TABLET PO SCH (08:17)
[2022-04-29] MEDS: CARBIDOPA/LEVODOPA 25-100 MG TABLET PO SCH ×3 (08:17→16:13)
[2022-04-29] MEDS: ESCITALOPRAM OXALATE 10 MG TABLET PO SCH (08:18)
[2022-04-29] MEDS: MEMANTINE HCL 5 MG TABLET PO SCH ×2 (08:18→16:13)
[2022-04-29 12:49] VITALS: BP 123/62
[2022-04-29 17:05] VITALS: BP 120/60
[2022-04-29] MEDS: TraZODone HCL 50 MG TABLET PO SCH (20:35)
[2022-04-29] MEDS: RisperiDONE 0.5 MG TABLET PO SCH (20:35)
[2022-04-30] MEDS: LISINOPRIL 5 MG TABLET PO SCH (08:18)
[2022-04-30] MEDS: CARBIDOPA/LEVODOPA 25-100 MG TABLET PO SCH ×2 (08:18→13:03)
[2022-04-30] MEDS: ESCITALOPRAM OXALATE 10 MG TABLET PO SCH (08:18)
[2022-04-30] MEDS: MEMANTINE HCL 5 MG TABLET PO SCH (08:18)
[2022-04-30 08:21] VITALS: BP 150/64
[2022-04-30] MEDS ORDERED: MEMA5 PO (12:55)
[2022-04-30] MEDS ORDERED: CARB-98 PO ×2 (12:56→20:15)
[2022-04-30] MEDS ORDERED: LISI-892 PO ×2 (12:56→20:15)
== END 2022-04-30 14:55 | disposition home or self-care (01) | DRG 885 ==
LOC: 3EX 19:30
PROVIDERS: ADMIT Psychiatry & Neurology Psychiatry; ATTEND Psychiatry & Neurology Psychiatry
DX: F25.9 Schizoaffective disorder, unspecified (principal); E87.1 Hypo-osmolality and hyponatremia; Z20.822 Contact with and (suspected) exposure to COVID-19; G20 Parkinson's disease; I10 Essential (primary) hypertension; G47.00 Insomnia, unspecified; K21.9 Gastro-esophageal reflux disease without esophagitis; F41.9 Anxiety disorder, unspecified
CPT/HCPCS: 81001; 84153; 85025; 87081; G0378

== ENCOUNTER 2022-10-01 18:37 | Emergency (ER) | payer MEDICARE ==
[~2022-10-01] VITALS: Ht 180.3 cm; Wt 72.0 kg
[~2022-10-01 18:37] MED LIST changes: +ASPI81TA87 PO; +BENZ-70 PO; +BENZ0.5T49 PO; +CARB1TAB36 PO; +CHLORHEX GLU MISC; +DOCU250C14 PO; -ESCI10 PO; +FERR325T23 PO; +HYDR-4723 PO; +HYDR25TA2 PO; +LACT-125 MISC; +LISI-892 PO; +LORA-1370 PO; +MENT71OI MISC; +OXYM15SP57 NASAL; +PANT-31 PO; +PARO10TA87 PO; +PEG31POW PO; +PSYL575P22 PO; +RISP0.5T39 PO; -RISP0.5T66 PO; +TRAZ-186 PO; -TRAZ-252 PO; +TRIAMCINOLON 0.1% MISC; +ZOLP10TA8 PO; +[UNRECOGNIZED DRUG - CODE] TP
[2022-10-01] MEDS ORDERED: HYDR453. TP (18:54)
[2022-10-01] MEDS ORDERED: TRIA15CR49 TP (18:54)
[2022-10-01 20:09] LABS: BASOPHILS % (AUTO) 0.6 % (0.0-2.0); EOSINOPHILS % (AUTO) 2.1 % (1.0-6.0); HEMATOCRIT 36.4 % (41-53); HEMOGLOBIN 12.9 g/dL (13.5-17.5); LYMPHOCYTES % (AUTO) 15.9 % (22.0-44.0); MEAN CORPUSCULAR HEMOGLOBIN 31.2 pg (26.0-34.0); MEAN CORPUSCULAR HGB CONC 35.4 G/dL (31.0-37.0); MEAN CORPUSCULAR VOLUME 88 fL (80-100); MONOCYTES # (AUTO) 0.6 K/uL (0.1-1.0); MONOCYTES % (AUTO) 9.7 % (2.0-9.0); NEUTROPHILS # (AUTO) 4.3 K/uL (1.8-7.7); NEUTROPHILS % (AUTO) 71.7 % (40.0-70.0); PLATELET COUNT (AUTO) 187 K/uL (150-450); RED BLOOD CELL COUNT(AUTO) 4.13 MIL/uL (4.50-5.90); RED CELL DISTRIBUTION WIDTH 13.3 % (11.5-14.5)
[2022-10-01 20:18] LABS: ANION GAP 5 mmol/L (8-16); CALCIUM, TOTAL 9.5 mg/dL (8.8-10.5); CARBON DIOXIDE 29 mmol/L (22-29); CHLORIDE 98 mmol/L (98-107); CREATININE 1.12 mg/dL (0.60-1.30); GLUCOSE,RANDOM 129 mg/dL (70-110); POTASSIUM 4.1 mmol/L (3.5-5.1); SODIUM SERUM 132 mmol/L (136-145); UREA NITROGEN, BLOOD 21 mg/dL (7-18)
[2022-10-01 20:19] LABS: GLOMERULAR FILTR. RATE CALC > 60 mL/min (>60)
[2022-10-01 20:23] LABS: PROTHROMBIN TIME 10.9 SEC (9.4-11.6)
[2022-10-01 20:24] LABS: ALANINE AMINOTRANSFERASE 11 U/L (12-78); ALBUMIN 3.6 g/dL (3.4-5.0); ALKALINE PHOSPHATASE 74 U/L (46-116); ASPARTATE AMINOTRANSFERASE 17 U/L (15-37); BILIRUBIN,TOTAL 0.4 mg/dL (0.1-1.0); TOTAL PROTEIN, SERUM 6.9 g/dL (6.4-8.2)
[2022-10-01] MEDS ORDERED: DiphenhydrAMINE HCL 50 MG/ML VIAL IM ONE (23:15)
[2022-10-01] MEDS ORDERED: HALOPERIDOL LACTATE 5 MG/ML VIAL IM ONE (23:15)
[2022-10-01] MEDS ORDERED: LORazepam 2 MG/ML VIAL IM ONE (23:15)
[2022-10-01 23:56] VITALS: BP 130/65
[2022-10-02 00:23] LABS: COVID AG,FIA SOURCE NASAL SWAB
== END 2022-10-02 04:34 | disposition admitted as inpatient to this hospital (09) ==
LOC: EMS 18:39
DX: K92.1 Melena (principal); F03.90 Unspecified dementia, unspecified severity, without behavioral disturbance, psychotic disturbance, mood disturbance, and anxiety; F20.9 Schizophrenia, unspecified; F32.A Depression, unspecified; I10 Essential (primary) hypertension; Z20.822 Contact with and (suspected) exposure to COVID-19
CPT/HCPCS: 99285; 87426; 80053; 82271; 84484; 85025; 85610; 85730; 86850; 86900; 86901; 36415; 93005; 96372; J1200; J1630; J2060

== ENCOUNTER 2023-01-17 11:11 | Inpatient (IN) | payer MEDICARE ==
[~2023-01-17] VITALS: Ht 180.3 cm; Wt 90.0 kg
[~2023-01-17 11:11] MED LIST changes: -BENZ-70 PO; -BENZ0.5T49 PO; -CHLORHEX GLU MISC; -DOCU250C14 PO; -FERR325T23 PO; -HYDR-4723 PO; -LACT-125 MISC; -LORA-1370 PO; +MEMA10TA11 PO; -MEMA28CA PO; -MENT71OI MISC; -OXYM15SP57 NASAL; -PANT-31 PO; -PARO10TA87 PO; -PEG31POW PO; -PSYL575P22 PO; -RISP0.5T39 PO; +RISP0.5T66 PO; -TRAZ-186 PO; -TRIAMCINOLON 0.1% MISC; -ZOLP10TA8 PO; -[UNRECOGNIZED DRUG - CODE] TP
[2023-01-17] MEDS ORDERED: 0.9% SODIUM CHLORIDE 10 ML SYRINGE IVP PRN (11:30)
[2023-01-17] MEDS ORDERED: CefTRIAXone 1 GM/DEXTROSE 50 ML IV ONE (11:30)
[2023-01-17] MEDS ORDERED: SODIUM CHLORIDE 0.9% 2,000 ML IV ONE (11:30)
[2023-01-17 11:42] LABS: BASOPHILS % (AUTO) 0.1 % (0.0-2.0); EOSINOPHILS % (AUTO) 0.5 % (1.0-6.0); HEMATOCRIT 29.1 % (41-53); HEMOGLOBIN 10.3 g/dL (13.5-17.5); LYMPHOCYTES # (AUTO) 0.3 K/uL (1.0-4.8); LYMPHOCYTES % (AUTO) 4.4 % (22.0-44.0); MEAN CORPUSCULAR HEMOGLOBIN 30.5 pg (26.0-34.0); MEAN CORPUSCULAR HGB CONC 35.6 G/dL (31.0-37.0); MEAN CORPUSCULAR VOLUME 86 fL (80-100); MONOCYTES # (AUTO) 0.3 K/uL (0.1-1.0); NEUTROPHILS # (AUTO) 5.4 K/uL (1.8-7.7); RED BLOOD CELL COUNT(AUTO) 3.38 MIL/uL (4.50-5.90); RED CELL DISTRIBUTION WIDTH 15.7 % (11.5-14.5)
[2023-01-17 11:45] LABS: APPEARANCE,URINE CLEAR (CLEAR); BILIRUBIN,URINE NEGATIVE (NEGATIVE); GLUCOSE, URINE (UA) NEGATIVE (NEGATIVE); KETONES,URINE NEGATIVE (NEGATIVE); LEUKOCYTE ESTERASE ,URINE NEGATIVE (NEGATIVE); NITRATE,URINE NEGATIVE (NEGATIVE); OCCULT BLOOD,URINE NEGATIVE (NEGATIVE); PROTEIN,URINE NEGATIVE (NEGATIVE); SPECIFIC GRAVITIY, URINE 1.014 (1.003-1.030); UROBILINOGEN,URINE <=1.0 mg/dL (<=1.0)
[2023-01-17 11:49] LABS: ANION GAP 2 mmol/L (8-16); CALCIUM, TOTAL 9.1 mg/dL (8.8-10.5); CARBON DIOXIDE 32 mmol/L (22-29); CHLORIDE 92 mmol/L (98-107); CREATININE 0.67 mg/dL (0.60-1.30); GLOMERULAR FILTR. RATE CALC > 60 mL/min (>60); GLUCOSE,RANDOM 149 mg/dL (70-110); POTASSIUM 3.4 mmol/L (3.5-5.1); SODIUM SERUM 126 mmol/L (136-145); UREA NITROGEN, BLOOD 19 mg/dL (7-18)
[2023-01-17 11:56] LABS: ALANINE AMINOTRANSFERASE 26 U/L (12-78); ALBUMIN 3.1 g/dL (3.4-5.0); ALKALINE PHOSPHATASE 71 U/L (46-116); ASPARTATE AMINOTRANSFERASE 59 U/L (15-37); BILIRUBIN,TOTAL 0.7 mg/dL (0.1-1.0); TOTAL PROTEIN, SERUM 6.2 g/dL (6.4-8.2)
[2023-01-17 11:57] LABS: B-TYPE NATRIURETIC PEPTIDE 65 pg/mL (0-100)
[2023-01-17 11:58] LABS: LACTIC ACID 1.6 mmol/L (0.4-2.0)
[2023-01-17 12:02] LABS: PLATELET COUNT (AUTO) 93 K/uL (150-450); PROTHROMBIN TIME 10.9 SEC (9.4-11.6)
[2023-01-17 12:03] LABS: PLATELET MORPHOLOGY COMMENT GIANT PLTS PRESENT
[2023-01-17] MEDS ORDERED: AZITHROMYCIN 500 MG/NS 250 ML IV ONE (12:45)
[2023-01-17] MEDS ORDERED: TRAZ-257 PO (12:47)
[2023-01-17] MEDS ORDERED: PANT40TA54 PO (12:47)
[2023-01-17] MEDS ORDERED: PARO10TA71 PO (12:47)
[2023-01-17] MEDS ORDERED: SODIUM CHLORIDE 0.9% 250 ML IV ONE (15:00)
[2023-01-17 15:06] LABS: INFLUENZA TYPE A NEGATIVE FOR TYPE A (NEGATIVE); INFLUENZA TYPE B NEGATIVE FOR TYPE B (NEGATIVE)
[2023-01-17] MEDS: SODIUM CHLORIDE 0.9% 1,000 ML IV SCH (15:23)
[2023-01-17] MEDS ORDERED: CHLO473M6 PO (15:52)
[2023-01-17] MEDS ORDERED: FERR325T23 PO (15:52)
[2023-01-17] MEDS ORDERED: PHEN57OI3 PR (15:54)
[2023-01-17] MEDS ORDERED: LACT-125 PO (15:55)
[2023-01-17] MEDS ORDERED: PSYL575P22 PO (15:56)
[2023-01-17] MEDS ORDERED: ZOLP10TA8 PO (15:56)
[2023-01-17] MEDS ORDERED: HYDR30CR39 TP (15:56)
[2023-01-17] MEDS ORDERED: BENZ-227 PO (15:57)
[2023-01-17] MEDS ORDERED: OXYM15SP57 NASAL (15:57)
[2023-01-17] MEDS ORDERED: MENT3.5O TP (15:58)
[2023-01-17] MEDS ORDERED: [UNRECOGNIZED DRUG - CODE] PO (15:59)
[2023-01-17] MEDS ORDERED: HYDR-4723 PO (15:59)
[2023-01-17] MEDS ORDERED: PROCTOCM TP (16:00)
[2023-01-17 16:41] LABS: ANION GAP 1 mmol/L (8-16); CALCIUM, TOTAL 8.3 mg/dL (8.8-10.5); CARBON DIOXIDE 30 mmol/L (22-29); CHLORIDE 97 mmol/L (98-107); CREATININE 0.49 mg/dL (0.60-1.30); GLOMERULAR FILTR. RATE CALC > 60 mL/min (>60); GLUCOSE,RANDOM 73 mg/dL (70-110); POTASSIUM 3.5 mmol/L (3.5-5.1); SODIUM SERUM 128 mmol/L (136-145); UREA NITROGEN, BLOOD 17 mg/dL (7-18)
[2023-01-17 17:04] LABS: LACTIC ACID 0.6 mmol/L (0.4-2.0)
[2023-01-17] MEDS ORDERED: DEXTROSE 50%-WATER 25 GM/50 ML SYRINGE IVP ONE (19:00)
[2023-01-17 19:12] LABS: GLUCOMETER DEV NAME(LOC) ERT.5; GLUCOSE,POINT OF CARE 46 MG/DL (70-110)
[2023-01-17] MEDS ORDERED: MAGNESIUM HYDROXIDE SUSPENSION 30 ML UDCUP PO PRN (19:30)
[2023-01-17] MEDS ORDERED: BISACODYL 10 MG RECTAL RECTAL SUPPOSITORY PR PRN (19:30)
[2023-01-17] MEDS ORDERED: ONDANSETRON HCL 4 MG/2 ML VIAL IVP PRN (19:30)
[2023-01-17] MEDS ORDERED: ZOLPIDEM TARTRATE 5 MG TABLET PO PRN (19:30)
[2023-01-17 20:00] VITALS: BP 87/36
[2023-01-17] MEDS: DEXTROSE 5%-0.9% SODIUM CHL 1,000 ML IV SCH (20:34)
[2023-01-17] MEDS: DOCUSATE SODIUM 100 MG CAPSULE PO SCH (21:00)
[2023-01-17 21:56] LABS: GLUCOSE,POINT OF CARE 165 MG/DL (70-110)
[2023-01-17 21:56] LABS: GLUCOSE,POINT OF CARE 100 MG/DL (70-110)
[2023-01-18] VITALS: BP 89/42
[2023-01-18] MEDS: HEPARIN SODIUM,PORCINE 5,000 UNITS/ML VIAL SQ SCH ×3 (01:08→16:13)
[2023-01-18] MEDS: DEXTROSE 5%-0.9% SODIUM CHL 1,000 ML IV SCH ×2 (01:30→09:13)
[2023-01-18 04:00] VITALS: BP 96/46
[2023-01-18] MEDS ORDERED: INSULIN LISPRO 100 UNITS/ML SQ PRN (04:30)
[2023-01-18] MEDS: PHENYLEPHRINE 200 MG/D5%-WATER 250 ML IV PRN (05:04)
[2023-01-18] MEDS: SODIUM CHLORIDE 0.9% 1,000 ML IV SCH ×2 (05:26→17:53)
[2023-01-18 07:16] LABS: GLUCOSE,POINT OF CARE 60 MG/DL (70-110)
[2023-01-18 07:16] LABS: GLUCOSE,POINT OF CARE 110 MG/DL (70-110)
[2023-01-18 08:00] VITALS: BP 108/63
[2023-01-18 08:07] LABS: ANION GAP 2 mmol/L (8-16); CALCIUM, TOTAL 8.5 mg/dL (8.8-10.5); CARBON DIOXIDE 28 mmol/L (22-29); CHLORIDE 101 mmol/L (98-107); CREATININE 0.74 mg/dL (0.60-1.30); GLOMERULAR FILTR. RATE CALC > 60 mL/min (>60); GLUCOSE,RANDOM 67 mg/dL (70-110); POTASSIUM 3.6 mmol/L (3.5-5.1); SODIUM SERUM 131 mmol/L (136-145); UREA NITROGEN, BLOOD 20 mg/dL (7-18)
[2023-01-18 08:10] LABS: EOSINOPHILS % (AUTO) 0 % (1.0-6.0); HEMATOCRIT 28.4 % (41-53); HEMOGLOBIN 10.2 g/dL (13.5-17.5); LYMPHOCYTES # (AUTO) 0.2 K/uL (1.0-4.8); LYMPHOCYTES % (AUTO) 1.8 % (22.0-44.0); MEAN CORPUSCULAR HEMOGLOBIN 30.9 pg (26.0-34.0); MEAN CORPUSCULAR VOLUME 86 fL (80-100); MONOCYTES # (AUTO) 0.5 K/uL (0.1-1.0); NEUTROPHILS # (AUTO) 8.7 K/uL (1.8-7.7); PLATELET COUNT (AUTO) 103 K/uL (150-450); RED BLOOD CELL COUNT(AUTO) 3.31 MIL/uL (4.50-5.90); RED CELL DISTRIBUTION WIDTH 16.3 % (11.5-14.5)
[2023-01-18 08:13] LABS: NEUTROPHILS % (AUTO) 93.2 % (40.0-70.0)
[2023-01-18] MEDS: PANTOPRAZOLE SODIUM 40 MG/VIAL IVP SCH (09:13)
[2023-01-18] MEDS: DOCUSATE SODIUM 100 MG CAPSULE PO SCH ×2 (09:13→21:00)
[2023-01-18 12:00] VITALS: BP 144/71
[2023-01-18] MEDS: CefTRIAXone 1 GM/DEXTROSE 50 ML IV SCH (12:28)
[2023-01-18 13:02] LABS: SOURCE, BLOOD GAS ARTERIAL
[2023-01-18 13:05] LABS: ABG CARBOXYHEMOGLOBIN 0.1 % (0.0-1.5); ABG HCO3 25.4 mmol/L (22.0-26.0); ABG METHEMOGLOBIN 0.1 % (0.0-1.5); ABG OXYGEN CONTENT 15.9 mL/dL (15.0-23.0); ABG OXYGEN SATURATION 94.3 % (95.0-98.0); ABG OXYHEMOGLOBIN 94.1 % (94.0-100.0); ABG PCO2 39 mmHg (35-45); ABG PH 7.429 (7.35-7.450); PO2, ARTERIAL BG 73.1 mmHg (75.0-83.0)
[2023-01-18 13:06] LABS: ABG A-A DIFF O2 600.3 mmHg (10-20.0); O2 DEVICE,BLOOD GAS NON REBREATHER (ROOM AIR); SITE, BLOOD GAS LFT RADIAL
[2023-01-18] MEDS: AZITHROMYCIN 500 MG/NS 250 ML IV SCH (13:17)
[2023-01-18 16:00] VITALS: BP 123/66
[2023-01-18 20:00] VITALS: BP 123/43
[2023-01-18 21:26] LABS: GLUCOSE,POINT OF CARE 77 MG/DL (70-110)
[2023-01-18 22:22] LABS: GLUCOSE,POINT OF CARE 64 MG/DL (70-110)
[2023-01-19] VITALS: BP 131/73
[2023-01-19] MEDS: ALBUTEROL SULFATE 2.5 MG/0.5 ML NEB SOLUTION NEB PRN ×3 (01:40→22:25)
[2023-01-19] MEDS: IPRATROPIUM BROMIDE 0.5 MG/2.5 ML NEB SOLUTION NEB PRN ×3 (01:40→22:25)
[2023-01-19 04:00] VITALS: BP 128/65
[2023-01-19] MEDS: SODIUM CHLORIDE 0.9% 1,000 ML IV SCH ×2 (06:48→20:27)
[2023-01-19 06:56] LABS: GLUCOSE,POINT OF CARE 81 MG/DL (70-110)
[2023-01-19 08:00] VITALS: BP 136/68
[2023-01-19] MEDS: HEPARIN SODIUM,PORCINE 5,000 UNITS/ML VIAL SQ SCH ×4 (08:34→23:55)
[2023-01-19] MEDS: PANTOPRAZOLE SODIUM 40 MG/VIAL IVP SCH (08:34)
[2023-01-19] MEDS: DOCUSATE SODIUM 100 MG CAPSULE PO SCH ×2 (09:00→20:28)
[2023-01-19 10:05] LABS: BASOPHILS % (AUTO) 0.1 % (0.0-2.0); EOSINOPHILS % (AUTO) 0 % (1.0-6.0); HEMATOCRIT 29.6 % (41-53); HEMOGLOBIN 10.3 g/dL (13.5-17.5); LYMPHOCYTES # (AUTO) 0.4 K/uL (1.0-4.8); LYMPHOCYTES % (AUTO) 4.2 % (22.0-44.0); MEAN CORPUSCULAR HEMOGLOBIN 30.3 pg (26.0-34.0); MEAN CORPUSCULAR HGB CONC 34.9 G/dL (31.0-37.0); MEAN CORPUSCULAR VOLUME 87 fL (80-100); MONOCYTES # (AUTO) 0.6 K/uL (0.1-1.0); MONOCYTES % (AUTO) 6.3 % (2.0-9.0); NEUTROPHILS # (AUTO) 8.1 K/uL (1.8-7.7); NEUTROPHILS % (AUTO) 89.4 % (40.0-70.0); PLATELET COUNT (AUTO) 103 K/uL (150-450); RED CELL DISTRIBUTION WIDTH 16.6 % (11.5-14.5)
[2023-01-19 10:13] LABS: ANION GAP 6 mmol/L (8-16); CALCIUM, TOTAL 8.4 mg/dL (8.8-10.5); CARBON DIOXIDE 26 mmol/L (22-29); CHLORIDE 106 mmol/L (98-107); CREATININE 0.79 mg/dL (0.60-1.30); GLOMERULAR FILTR. RATE CALC > 60 mL/min (>60); GLUCOSE,RANDOM 91 mg/dL (70-110); POTASSIUM 3.8 mmol/L (3.5-5.1); SODIUM SERUM 138 mmol/L (136-145); UREA NITROGEN, BLOOD 14 mg/dL (7-18)
[2023-01-19 10:20] LABS: ALANINE AMINOTRANSFERASE 40 U/L (12-78); ALBUMIN 1.9 g/dL (3.4-5.0); ALKALINE PHOSPHATASE 62 U/L (46-116); ASPARTATE AMINOTRANSFERASE 50 U/L (15-37); BILIRUBIN,TOTAL 1.5 mg/dL (0.1-1.0); TOTAL PROTEIN, SERUM 4.9 g/dL (6.4-8.2)
[2023-01-19 12:00] VITALS: BP 136/68
[2023-01-19] MEDS: ALBUMIN HUMAN 25%-25GM/100ML 100 ML IV SCH ×2 (12:09→20:28)
[2023-01-19] MEDS: CefTRIAXone 1 GM/DEXTROSE 50 ML IV SCH (12:09)
[2023-01-19 12:37] LABS: GLUCOSE,POINT OF CARE 80 MG/DL (70-110)
[2023-01-19] MEDS: DEXTROSE 5%-0.9% SODIUM CHL 1,000 ML IV SCH ×2 (12:59→23:54)
[2023-01-19] MEDS: AZITHROMYCIN 500 MG/NS 250 ML IV SCH (12:59)
[2023-01-19 16:00] VITALS: BP 130/53
[2023-01-19 20:00] VITALS: BP 144/79
[2023-01-20] VITALS: BP 125/57
[2023-01-20] MEDS: ALBUMIN HUMAN 25%-25GM/100ML 100 ML IV SCH (03:56)
[2023-01-20 04:00] VITALS: BP 126/69
[2023-01-20] MEDS: MORPHINE SULFATE 2 MG/ML SYRINGE IVP PRN ×2 (04:02→07:56)
[2023-01-20 05:11] LABS: GLUCOSE,POINT OF CARE 85 MG/DL (70-110)
[2023-01-20 05:11] LABS: GLUCOSE,POINT OF CARE 85 MG/DL (70-110)
[2023-01-20 05:46] LABS: GLUCOSE,POINT OF CARE 78 MG/DL (70-110)
[2023-01-20] MEDS: PANTOPRAZOLE SODIUM 40 MG/VIAL IVP SCH (07:55)
[2023-01-20] MEDS: HEPARIN SODIUM,PORCINE 5,000 UNITS/ML VIAL SQ SCH ×2 (07:55→17:52)
[2023-01-20] MEDS: SODIUM CHLORIDE 0.9% 1,000 ML IV SCH ×2 (07:56→23:17)
[2023-01-20 08:00] VITALS: BP 122/84
[2023-01-20] MEDS: DOCUSATE SODIUM 100 MG CAPSULE PO SCH ×2 (08:33→23:17)
[2023-01-20 09:12] LABS: ABG BASE EXCESS -0.4 mmol/L (-2.0-3.0); ABG CARBOXYHEMOGLOBIN 0.4 % (0.0-1.5); ABG HCO3 24.2 mmol/L (22.0-26.0); ABG METHEMOGLOBIN 0.3 % (0.0-1.5); ABG OXYGEN SATURATION 91.5 % (95.0-98.0); ABG OXYHEMOGLOBIN 90.9 % (94.0-100.0); ABG PCO2 40 mmHg (35-45); ABG PH 7.401 (7.35-7.450); ABG TOTAL HEMOGLOBIN 10.1 G/dL (12.0-18.0); PO2, ARTERIAL BG 64.2 mmHg (75.0-83.0); SOURCE, BLOOD GAS ARTERIAL
[2023-01-20 09:13] LABS: ABG A-A DIFF O2 608.1 mmHg (10-20.0); O2 DEVICE,BLOOD GAS BIPAP (ROOM AIR); SITE, BLOOD GAS RT RADIAL; SPONTANEOUS VT, BG 807 ml
[2023-01-20] MEDS: PHENYLEPHRINE 200 MG/D5%-WATER 250 ML IV PRN ×2 (11:08→14:38)
[2023-01-20] MEDS: NOREPINEPHRINE 8 MG/D5%-WATER 250 ML IV PRN ×2 (11:14→18:30)
[2023-01-20] MEDS: PROPOFOL 1000 MG/ISO-OSM 100 ML IV PRN ×2 (11:15→18:31)
[2023-01-20 11:29] LABS: ABG METHEMOGLOBIN 0.3 % (0.0-1.5); ABG TOTAL HEMOGLOBIN 11.7 G/dL (12.0-18.0); SOURCE, BLOOD GAS ARTERIAL
[2023-01-20 11:38] LABS: ABG BASE EXCESS -7.6 mmol/L (-2.0-3.0); ABG CARBOXYHEMOGLOBIN 0.7 % (0.0-1.5); ABG HCO3 18.3 mmol/L (22.0-26.0); ABG OXYGEN CONTENT 11.6 mL/dL (15.0-23.0); ABG OXYHEMOGLOBIN 70.7 % (94.0-100.0); ABG PCO2 39 mmHg (35-45); ABG PH 7.299 (7.35-7.450); PO2, ARTERIAL BG 41.1 mmHg (75.0-83.0); TEMPERATURE, FAHRENHEIT, BG 99.2 FAHREN (96.0-98.6)
[2023-01-20 11:39] LABS: ABG A-A DIFF O2 631.8 mmHg (10-20.0); ABG OXYGEN SATURATION 71.4 % (95.0-98.0); O2 DEVICE,BLOOD GAS BAG VALVE MASK (ROOM AIR); SITE, BLOOD GAS RT RADIAL
[2023-01-20 12:00] VITALS: BP 137/65
[2023-01-20] MEDS ORDERED: SUCCINYLCHOLINE CHLORIDE 20 MG/ML 10 ML VIAL IVP ONE (12:00)
[2023-01-20] MEDS ORDERED: PROPOFOL 1% 20 ML VIAL IVP ONE (12:00)
[2023-01-20] MEDS: CefTRIAXone 1 GM/DEXTROSE 50 ML IV SCH (12:50)
[2023-01-20] MEDS: AZITHROMYCIN 500 MG/NS 250 ML IV SCH (12:51)
[2023-01-20 13:46] LABS: GLUCOSE,POINT OF CARE 104 MG/DL (70-110)
[2023-01-20] MEDS ORDERED: SODIUM CHLORIDE 0.9% 500 ML IV ONE (15:01)
[2023-01-20 15:35] LABS: ABG BASE EXCESS -10.8 mmol/L (-2.0-3.0); ABG CARBOXYHEMOGLOBIN 0.1 % (0.0-1.5); ABG METHEMOGLOBIN 0.3 % (0.0-1.5); ABG OXYGEN SATURATION 90.4 % (95.0-98.0); ABG PCO2 46 mmHg (35-45); SOURCE, BLOOD GAS ARTERIAL; TEMPERATURE, FAHRENHEIT, BG 99.2 FAHREN (96.0-98.6)
[2023-01-20 15:36] LABS: ABG PH 7.192 (7.35-7.450); SITE, BLOOD GAS ARTERIAL LINE
[2023-01-20 15:37] LABS: O2 DEVICE,BLOOD GAS BAG VALVE MASK (ROOM AIR)
[2023-01-20 16:00] VITALS: BP 82/47
[2023-01-20] MEDS: SODIUM BICARBONATE 150 MEQ in DEXTROSE 5%-WATER 1,000 ML IV SCH (17:52)
[2023-01-20 21:11] LABS: GLUCOSE,POINT OF CARE 81 MG/DL (70-110)
[2023-01-20] MEDS ORDERED: NALOXONE HCL 1 MG/ML 2 ML SYRINGE IVP PRN (22:00)
[2023-01-20] MEDS ORDERED: FentaNYL CITRATE PF 100 MCG/2 ML VIAL IVP PRN (22:00)
[2023-01-20] MEDS: ACETAMINOPHEN 325 MG TABLET PO PRN (23:14)
[2023-01-20 23:44] LABS: ABG BASE EXCESS -5.6 mmol/L (-2.0-3.0); ABG HCO3 19.4 mmol/L (22.0-26.0); ABG METHEMOGLOBIN 0.1 % (0.0-1.5); ABG OXYGEN CONTENT 14.5 mL/dL (15.0-23.0); ABG OXYGEN SATURATION 89.8 % (95.0-98.0); ABG OXYHEMOGLOBIN 89.7 % (94.0-100.0); ABG PCO2 63 mmHg (35-45); ABG TOTAL HEMOGLOBIN 11.5 G/dL (12.0-18.0); PO2, ARTERIAL BG 72.8 mmHg (75.0-83.0); SOURCE, BLOOD GAS ARTERIAL; TEMPERATURE, FAHRENHEIT, BG 101.5 FAHREN (96.0-98.6)
[2023-01-21 00:02] LABS: ABG A-A DIFF O2 572.8 mmHg (10-20.0); ABG PH 7.179 (7.35-7.450); O2 DEVICE,BLOOD GAS VENT (ROOM AIR); PEEP,BG 10 cm H2O; SITE, BLOOD GAS ARTERIAL LINE; VT, ABG 450 ml
[2023-01-21 00:31] LABS: GLUCOSE,POINT OF CARE 97 MG/DL (70-110)
[2023-01-21] MEDS: HEPARIN SODIUM,PORCINE 5,000 UNITS/ML VIAL SQ SCH ×3 (00:53→17:17)
[2023-01-21] MEDS: NOREPINEPHRINE 8 MG/D5%-WATER 250 ML IV PRN (02:55)
[2023-01-21] MEDS: PHENYLEPHRINE 200 MG/D5%-WATER 250 ML IV PRN (07:44)
[2023-01-21 08:00] VITALS: BP 123/58
[2023-01-21] MEDS: PROPOFOL 1000 MG/ISO-OSM 100 ML IV PRN (08:22)
[2023-01-21] MEDS: SODIUM BICARBONATE 150 MEQ in DEXTROSE 5%-WATER 1,000 ML IV SCH (08:23)
[2023-01-21] MEDS: PANTOPRAZOLE SODIUM 40 MG/VIAL IVP SCH (08:23)
[2023-01-21] MEDS: DOCUSATE SODIUM 100 MG CAPSULE PO SCH ×2 (09:00→20:06)
[2023-01-21 12:00] VITALS: BP 146/59
[2023-01-21 12:43] LABS: EOSINOPHILS % (AUTO) 0 % (1.0-6.0); HEMATOCRIT 30.9 % (41-53); HEMOGLOBIN 10.1 g/dL (13.5-17.5); LYMPHOCYTES # (AUTO) 0.8 K/uL (1.0-4.8); MEAN CORPUSCULAR HEMOGLOBIN 29.4 pg (26.0-34.0); MEAN CORPUSCULAR HGB CONC 32.6 G/dL (31.0-37.0); MEAN CORPUSCULAR VOLUME 90 fL (80-100); MONOCYTES # (AUTO) 1.1 K/uL (0.1-1.0); MONOCYTES % (AUTO) 5.8 % (2.0-9.0); NEUTROPHILS # (AUTO) 17.4 K/uL (1.8-7.7); PLATELET COUNT (AUTO) 103 K/uL (150-450); RED BLOOD CELL COUNT(AUTO) 3.44 MIL/uL (4.50-5.90); RED CELL DISTRIBUTION WIDTH 17.3 % (11.5-14.5)
[2023-01-21 12:45] LABS: NEUTROPHILS % (AUTO) 90.2 % (40.0-70.0)
[2023-01-21 12:55] LABS: ABG BASE EXCESS -1.9 mmol/L (-2.0-3.0); ABG CARBOXYHEMOGLOBIN 0.1 % (0.0-1.5); ABG HCO3 22.5 mmol/L (22.0-26.0); ABG METHEMOGLOBIN 0.3 % (0.0-1.5); ABG OXYGEN CONTENT 14.7 mL/dL (15.0-23.0); ABG OXYGEN SATURATION 98.5 % (95.0-98.0); ABG OXYHEMOGLOBIN 98.1 % (94.0-100.0); ABG PCO2 58 mmHg (35-45); ABG PH 7.258 (7.35-7.450); ABG TOTAL HEMOGLOBIN 10.4 G/dL (12.0-18.0); SOURCE, BLOOD GAS ARTERIAL; TEMPERATURE, FAHRENHEIT, BG 99.9 FAHREN (96.0-98.6)
[2023-01-21 12:56] LABS: ABG A-A DIFF O2 498.3 mmHg (10-20.0); O2 DEVICE,BLOOD GAS VENTILATOR (ROOM AIR); PEEP,BG 10 cm H2O; SITE, BLOOD GAS ARTERIAL LINE; SPONTANEOUS VT, BG 463 ml; VT, ABG 450 ml
[2023-01-21 13:40] LABS: ALBUMIN 2.2 g/dL (3.4-5.0); BILIRUBIN,TOTAL 1.4 mg/dL (0.1-1.0); CALCIUM, TOTAL 8.6 mg/dL (8.8-10.5); CREATININE 2.59 mg/dL (0.60-1.30); POTASSIUM 4.1 mmol/L (3.5-5.1); TOTAL PROTEIN, SERUM 5.2 g/dL (6.4-8.2)
[2023-01-21] MEDS: AZITHROMYCIN 500 MG/NS 250 ML IV SCH (14:35)
[2023-01-21] MEDS: SODIUM CHLORIDE 0.9% 1,000 ML IV SCH (14:35)
[2023-01-21] MEDS: CefTRIAXone 1 GM/DEXTROSE 50 ML IV SCH (14:35)
[2023-01-21] MEDS ORDERED: SODIUM CHLORIDE 0.9% 250 ML IV ONE ×2 (14:49→21:54)
[2023-01-21 16:00] VITALS: BP 123/58
[2023-01-21 16:41] LABS: GLUCOSE,POINT OF CARE 89 MG/DL (70-110)
[2023-01-21 19:31] LABS: GLUCOSE,POINT OF CARE 74 MG/DL (70-110)
[2023-01-21] MEDS ORDERED: BUMETANIDE 0.25 MG/ML 4 ML VIAL IVP ONE (19:45)
[2023-01-21 20:00] VITALS: BP 120/71
[2023-01-21] MEDS ORDERED: ALBUMIN HUMAN 25%-25GM/100ML 100 ML IV ONE (20:00)
[2023-01-21 20:47] LABS: INR 1.2 (0.9-1.1)
[2023-01-21 20:56] LABS: EOSINOPHILS % (AUTO) 0.1 % (1.0-6.0); HEMATOCRIT 28.5 % (41-53); HEMOGLOBIN 9.6 g/dL (13.5-17.5); LYMPHOCYTES # (AUTO) 0.9 K/uL (1.0-4.8); MEAN CORPUSCULAR HGB CONC 33.8 G/dL (31.0-37.0); MEAN CORPUSCULAR VOLUME 89 fL (80-100); MONOCYTES % (AUTO) 5.4 % (2.0-9.0); NEUTROPHILS # (AUTO) 16.9 K/uL (1.8-7.7); RED BLOOD CELL COUNT(AUTO) 3.21 MIL/uL (4.50-5.90); RED CELL DISTRIBUTION WIDTH 16.9 % (11.5-14.5)
[2023-01-21 21:02] LABS: ABG CARBOXYHEMOGLOBIN 0.3 % (0.0-1.5); ABG HCO3 21.1 mmol/L (22.0-26.0); ABG METHEMOGLOBIN 0.3 % (0.0-1.5); ABG OXYGEN CONTENT 13.3 mL/dL (15.0-23.0); ABG OXYGEN SATURATION 96.8 % (95.0-98.0); ABG OXYHEMOGLOBIN 96.2 % (94.0-100.0); ABG PCO2 43 mmHg (35-45); ABG PH 7.325 (7.35-7.450); ABG TOTAL HEMOGLOBIN 9.7 G/dL (12.0-18.0); PO2, ARTERIAL BG 75.5 mmHg (75.0-83.0); SOURCE, BLOOD GAS ARTERIAL; TEMPERATURE, FAHRENHEIT, BG 91.4 FAHREN (96.0-98.6)
[2023-01-21 21:03] LABS: SITE, BLOOD GAS ARTERIAL LINE
[2023-01-21 21:04] LABS: O2 DEVICE,BLOOD GAS VENT (ROOM AIR); PEEP,BG 10 cm H2O; VT, ABG 450 ml
[2023-01-21 21:07] LABS: CALCIUM, TOTAL 8.4 mg/dL (8.8-10.5); CREATININE 2.9 mg/dL (0.60-1.30); POTASSIUM 3.3 mmol/L (3.5-5.1)
[2023-01-21 21:14] LABS: NEUTROPHILS % (AUTO) 89.5 % (40.0-70.0)
[2023-01-21 21:22] LABS: PLATELET COUNT (AUTO) 64 K/uL (150-450); PLATELET MORPHOLOGY COMMENT LARGE PLTS PRESENT
[2023-01-21 21:36] LABS: BILIRUBIN,TOTAL 1.3 mg/dL (0.1-1.0); MAGNESIUM 1.7 mg/dL (1.80-2.40); PHOSPHORUS 4.9 mg/dL (2.5-4.9)
[2023-01-21 21:37] LABS: ALBUMIN 2.1 g/dL (3.4-5.0); TOTAL PROTEIN, SERUM 5.1 g/dL (6.4-8.2)
[2023-01-21] MEDS ORDERED: SODIUM CHLORIDE 0.9% 500 ML IV ONE (21:54)
[2023-01-22] VITALS (14 sets, daily range): BP systolic 104–152; BP diastolic 50–92
[2023-01-22] MEDS: PROPOFOL 1000 MG/ISO-OSM 100 ML IV PRN ×3 (01:33→17:13)
[2023-01-22 01:46] LABS: GLUCOSE,POINT OF CARE 100 MG/DL (70-110)
[2023-01-22 03:05] LABS: ABG BASE EXCESS -1.8 mmol/L (-2.0-3.0); ABG METHEMOGLOBIN 0.3 % (0.0-1.5); ABG OXYGEN CONTENT 12.2 mL/dL (15.0-23.0); ABG OXYGEN SATURATION 97.3 % (95.0-98.0); ABG PCO2 38 mmHg (35-45); ABG PH 7.402 (7.35-7.450); ABG TOTAL HEMOGLOBIN 8.8 G/dL (12.0-18.0); PO2, ARTERIAL BG 78.1 mmHg (75.0-83.0); SITE, BLOOD GAS ARTERIAL LINE; SOURCE, BLOOD GAS ARTERIAL; TEMPERATURE, FAHRENHEIT, BG 90.9 FAHREN (96.0-98.6)
[2023-01-22 03:06] LABS: ABG A-A DIFF O2 460.8 mmHg (10-20.0); O2 DEVICE,BLOOD GAS VENT (ROOM AIR); PEEP,BG 10 cm H2O; VT, ABG 450 ml
[2023-01-22 03:38] LABS: ALBUMIN 2.1 g/dL (3.4-5.0); BILIRUBIN,TOTAL 1.2 mg/dL (0.1-1.0); CALCIUM, TOTAL 8.3 mg/dL (8.8-10.5); CREATININE 3.04 mg/dL (0.60-1.30); MAGNESIUM 1.7 mg/dL (1.80-2.40); PHOSPHORUS 4.3 mg/dL (2.5-4.9); TOTAL PROTEIN, SERUM 4.9 g/dL (6.4-8.2)
[2023-01-22 03:41] LABS: POTASSIUM 2.9 mmol/L (3.5-5.1)
[2023-01-22] MEDS ORDERED: POTASSIUM CHLORIDE 10% 40 MEQ/30 ML LIQUID UDCUP NG ONE (04:00)
[2023-01-22] MEDS: DOCUSATE SODIUM 100 MG CAPSULE PO SCH ×2 (08:07→21:14)
[2023-01-22] MEDS: HEPARIN SODIUM,PORCINE 5,000 UNITS/ML VIAL SQ SCH ×3 (08:07→15:47)
[2023-01-22] MEDS: PANTOPRAZOLE SODIUM 40 MG/VIAL IVP SCH (08:07)
[2023-01-22 08:52] LABS: ABG BASE EXCESS -3.8 mmol/L (-2.0-3.0); ABG CARBOXYHEMOGLOBIN 0.4 % (0.0-1.5); ABG HCO3 21.4 mmol/L (22.0-26.0); ABG METHEMOGLOBIN 0.3 % (0.0-1.5); ABG OXYGEN CONTENT 12.3 mL/dL (15.0-23.0); ABG OXYHEMOGLOBIN 92.3 % (94.0-100.0); ABG PCO2 36 mmHg (35-45); ABG PH 7.387 (7.35-7.450); ABG TOTAL HEMOGLOBIN 9.4 G/dL (12.0-18.0); PO2, ARTERIAL BG 53.9 mmHg (75.0-83.0); SOURCE, BLOOD GAS ARTERIAL
[2023-01-22 08:53] LABS: ABG A-A DIFF O2 340.1 mmHg (10-20.0); O2 DEVICE,BLOOD GAS VENTILATOR (ROOM AIR); PEEP,BG 10 cm H2O; SITE, BLOOD GAS LFT RADIAL; VT, ABG 450 ml
[2023-01-22 08:58] LABS: ALBUMIN 2.1 g/dL (3.4-5.0); BILIRUBIN,TOTAL 1.2 mg/dL (0.1-1.0); CALCIUM, TOTAL 8.3 mg/dL (8.8-10.5); CREATININE 3.05 mg/dL (0.60-1.30); MAGNESIUM 1.9 mg/dL (1.80-2.40); PHOSPHORUS 3.9 mg/dL (2.5-4.9); POTASSIUM 3.5 mmol/L (3.5-5.1); TOTAL PROTEIN, SERUM 4.8 g/dL (6.4-8.2)
[2023-01-22 10:26] LABS: GLUCOSE,POINT OF CARE 75 MG/DL (70-110)
[2023-01-22] MEDS: CefTRIAXone 1 GM/DEXTROSE 50 ML IV SCH (11:32)
[2023-01-22 12:31] LABS: GLUCOSE,POINT OF CARE 76 MG/DL (70-110)
[2023-01-22] MEDS: AZITHROMYCIN 500 MG/NS 250 ML IV SCH (13:49)
[2023-01-22 14:18] LABS: ABG A-A DIFF O2 332.1 mmHg (10-20.0); ABG BASE EXCESS -3.5 mmol/L (-2.0-3.0); ABG CARBOXYHEMOGLOBIN 0.3 % (0.0-1.5); ABG HCO3 21.5 mmol/L (22.0-26.0); ABG METHEMOGLOBIN 0.3 % (0.0-1.5); ABG OXYGEN CONTENT 13.3 mL/dL (15.0-23.0); ABG OXYGEN SATURATION 93.3 % (95.0-98.0); ABG OXYHEMOGLOBIN 92.7 % (94.0-100.0); ABG PCO2 39 mmHg (35-45); ABG PH 7.367 (7.35-7.450); ABG TOTAL HEMOGLOBIN 10.1 G/dL (12.0-18.0); O2 DEVICE,BLOOD GAS VENTILATOR (ROOM AIR); PEEP,BG 10 cm H2O; PO2, ARTERIAL BG 59.2 mmHg (75.0-83.0); SITE, BLOOD GAS LFT RADIAL; SOURCE, BLOOD GAS ARTERIAL; TEMPERATURE, FAHRENHEIT, BG 90.8 FAHREN (96.0-98.6); VT, ABG 450 ml
[2023-01-22 15:28] LABS: ALBUMIN 2.1 g/dL (3.4-5.0); BILIRUBIN,TOTAL 1.2 mg/dL (0.1-1.0); CALCIUM, TOTAL 8.5 mg/dL (8.8-10.5); CREATININE 3.3 mg/dL (0.60-1.30); MAGNESIUM 1.9 mg/dL (1.80-2.40); PHOSPHORUS 4.3 mg/dL (2.5-4.9); POTASSIUM 3.8 mmol/L (3.5-5.1); TOTAL PROTEIN, SERUM 5.1 g/dL (6.4-8.2)
[2023-01-22] MEDS: PHENYLEPHRINE 200 MG/D5%-WATER 250 ML IV PRN (17:07)
[2023-01-22] MEDS ORDERED: SODIUM CHLORIDE 0.9% 2,000 ML ONE (17:33)
[2023-01-22 19:15] LABS: GLUCOSE,POINT OF CARE 70 MG/DL (70-110)
[2023-01-22 19:54] LABS: INR 1.2 (0.9-1.1)
[2023-01-22 20:00] LABS: ALBUMIN 2.3 g/dL (3.4-5.0); BILIRUBIN,TOTAL 1.5 mg/dL (0.1-1.0); CALCIUM, TOTAL 8.4 mg/dL (8.8-10.5); CREATININE 2.01 mg/dL (0.60-1.30); MAGNESIUM 1.7 mg/dL (1.80-2.40); PHOSPHORUS 2.9 mg/dL (2.5-4.9); POTASSIUM 3.4 mmol/L (3.5-5.1); TOTAL PROTEIN, SERUM 5.5 g/dL (6.4-8.2)
[2023-01-22] MEDS: SODIUM CITRATE 4% CATH FLUSH 5 ML SYRINGE IVCATH PRN ×2 (20:00→20:01)
[2023-01-22 20:07] LABS: ABG BASE EXCESS -1.1 mmol/L (-2.0-3.0); ABG CARBOXYHEMOGLOBIN 0.3 % (0.0-1.5); ABG HCO3 23.5 mmol/L (22.0-26.0); ABG METHEMOGLOBIN 0.3 % (0.0-1.5); ABG OXYGEN CONTENT 13.9 mL/dL (15.0-23.0); ABG OXYGEN SATURATION 96.5 % (95.0-98.0); ABG OXYHEMOGLOBIN 95.9 % (94.0-100.0); ABG PCO2 35 mmHg (35-45); ABG PH 7.433 (7.35-7.450); ABG TOTAL HEMOGLOBIN 10.2 G/dL (12.0-18.0); PO2, ARTERIAL BG 73.6 mmHg (75.0-83.0); TEMPERATURE, FAHRENHEIT, BG 91.4 FAHREN (96.0-98.6)
[2023-01-22 20:08] LABS: O2 DEVICE,BLOOD GAS VENTILATOR (ROOM AIR); PEEP,BG 10 cm H2O; SITE, BLOOD GAS RT RADIAL; SOURCE, BLOOD GAS ARTERIAL LINE; VT, ABG 450 ml
[2023-01-23] VITALS (15 sets, daily range): BP systolic 96–131; BP diastolic 42–62
[2023-01-23] MEDS: PROPOFOL 1000 MG/ISO-OSM 100 ML IV PRN ×4 (00:32→18:32)
[2023-01-23] MEDS: HEPARIN SODIUM,PORCINE 5,000 UNITS/ML VIAL SQ SCH ×4 (00:32→16:00)
[2023-01-23] MEDS: DEXTROSE 50%-WATER 25 GM/50 ML SYRINGE IVP PRN ×4 (00:49→17:53)
[2023-01-23 05:31] LABS: GLUCOSE,POINT OF CARE 59 MG/DL (70-110)
[2023-01-23 05:31] LABS: GLUCOSE,POINT OF CARE 137 MG/DL (70-110)
[2023-01-23 06:13] LABS: CALCIUM, TOTAL 8.7 mg/dL (8.8-10.5); CREATININE 2.6 mg/dL (0.60-1.30); POTASSIUM 3.5 mmol/L (3.5-5.1)
[2023-01-23 06:15] LABS: BILIRUBIN,TOTAL 1.1 mg/dL (0.1-1.0); CALCIUM, TOTAL 8.3 mg/dL (8.8-10.5); CREATININE 2.52 mg/dL (0.60-1.30); MAGNESIUM 1.5 mg/dL (1.80-2.40); PHOSPHORUS 3.2 mg/dL (2.5-4.9); POTASSIUM 3.6 mmol/L (3.5-5.1); TOTAL PROTEIN, SERUM 5.2 g/dL (6.4-8.2)
[2023-01-23 06:51] LABS: GLUCOSE,POINT OF CARE 62 MG/DL (70-110)
[2023-01-23 06:52] LABS: GLUCOSE,POINT OF CARE 125 MG/DL (70-110)
[2023-01-23] MEDS: PANTOPRAZOLE SODIUM 40 MG/VIAL IVP SCH (08:34)
[2023-01-23] MEDS: DOCUSATE SODIUM 100 MG CAPSULE PO SCH ×2 (08:34→20:45)
[2023-01-23 08:47] LABS: CALCIUM, TOTAL 8.5 mg/dL (8.8-10.5); CREATININE 2.69 mg/dL (0.60-1.30); POTASSIUM 3.6 mmol/L (3.5-5.1)
[2023-01-23 10:11] LABS: BASOPHILS % (AUTO) 0.2 % (0.0-2.0); EOSINOPHILS % (AUTO) 0.9 % (1.0-6.0); HEMATOCRIT 27.4 % (41-53); HEMOGLOBIN 9.2 g/dL (13.5-17.5); LYMPHOCYTES # (AUTO) 0.5 K/uL (1.0-4.8); LYMPHOCYTES % (AUTO) 4.2 % (22.0-44.0); MEAN CORPUSCULAR HEMOGLOBIN 29.5 pg (26.0-34.0); MEAN CORPUSCULAR HGB CONC 33.4 G/dL (31.0-37.0); MEAN CORPUSCULAR VOLUME 88 fL (80-100); MONOCYTES # (AUTO) 0.6 K/uL (0.1-1.0); MONOCYTES % (AUTO) 4.9 % (2.0-9.0); NEUTROPHILS # (AUTO) 10.9 K/uL (1.8-7.7); PLATELET COUNT (AUTO) 76 K/uL (150-450); RED CELL DISTRIBUTION WIDTH 16.9 % (11.5-14.5)
[2023-01-23 10:15] LABS: NEUTROPHILS % (AUTO) 89.8 % (40.0-70.0)
[2023-01-23] MEDS: PHENYLEPHRINE 200 MG/D5%-WATER 250 ML IV PRN (11:23)
[2023-01-23] MEDS: CefTRIAXone 1 GM/DEXTROSE 50 ML IV SCH (11:24)
[2023-01-23] MEDS ORDERED: SODIUM CHLORIDE 0.9% 2,000 ML ONE (12:30)
[2023-01-23] MEDS: AZITHROMYCIN 500 MG/NS 250 ML IV SCH (12:37)
[2023-01-23 15:17] LABS: GLUCOSE,POINT OF CARE 60 MG/DL (70-110)
[2023-01-23 15:17] LABS: GLUCOSE,POINT OF CARE 102 MG/DL (70-110)
[2023-01-23 15:26] LABS: CALCIUM, TOTAL 7.9 mg/dL (8.8-10.5); CREATININE 1.53 mg/dL (0.60-1.30); POTASSIUM 3.6 mmol/L (3.5-5.1)
[2023-01-23 18:01] LABS: GLUCOSE,POINT OF CARE 75 MG/DL (70-110)
[2023-01-24] VITALS: BP 97/50
[2023-01-24] MEDS: ACETAMINOPHEN 325 MG TABLET PO PRN ×2 (00:23→21:40)
[2023-01-24 00:41] LABS: GLUCOSE,POINT OF CARE 74 MG/DL (70-110)
[2023-01-24] MEDS: PROPOFOL 1000 MG/ISO-OSM 100 ML IV PRN ×3 (01:08→22:50)
[2023-01-24] MEDS ORDERED: SODIUM CHLORIDE 0.9% 250 ML IV ONE ×2 (02:59→03:01)
[2023-01-24 04:00] VITALS: BP 114/61
[2023-01-24 05:52] LABS: BASOPHILS % (AUTO) 0.1 % (0.0-2.0); HEMATOCRIT 26.2 % (41-53); LYMPHOCYTES # (AUTO) 0.6 K/uL (1.0-4.8); LYMPHOCYTES % (AUTO) 7.7 % (22.0-44.0); MEAN CORPUSCULAR HEMOGLOBIN 30.2 pg (26.0-34.0); MEAN CORPUSCULAR HGB CONC 34.4 G/dL (31.0-37.0); MEAN CORPUSCULAR VOLUME 88 fL (80-100); MONOCYTES # (AUTO) 0.5 K/uL (0.1-1.0); MONOCYTES % (AUTO) 6.1 % (2.0-9.0); NEUTROPHILS # (AUTO) 7.1 K/uL (1.8-7.7); NEUTROPHILS % (AUTO) 84.1 % (40.0-70.0); PLATELET COUNT (AUTO) 91 K/uL (150-450); RED BLOOD CELL COUNT(AUTO) 2.99 MIL/uL (4.50-5.90); RED CELL DISTRIBUTION WIDTH 17.3 % (11.5-14.5)
[2023-01-24 06:14] LABS: ALBUMIN 1.9 g/dL (3.4-5.0); BILIRUBIN,TOTAL 1.3 mg/dL (0.1-1.0); CALCIUM, TOTAL 8.4 mg/dL (8.8-10.5); CHOL/HDL RATIO 4.3 (4.2-7.3); CREATININE 2.51 mg/dL (0.60-1.30); TOTAL PROTEIN, SERUM 5.2 g/dL (6.4-8.2)
[2023-01-24 06:45] LABS: PLATELET MORPHOLOGY COMMENT LARGE PLTS PRESENT
[2023-01-24 07:01] LABS: GLUCOSE,POINT OF CARE 70 MG/DL (70-110)
[2023-01-24] MEDS: PHENYLEPHRINE 200 MG/D5%-WATER 250 ML IV PRN (07:13)
[2023-01-24] MEDS: HEPARIN SODIUM,PORCINE 5,000 UNITS/ML VIAL SQ SCH ×3 (07:35→15:18)
[2023-01-24 08:00] VITALS: BP 114/57
[2023-01-24] MEDS ORDERED: DIGOXIN 250 MCG/ML 2 ML AMP IVP ONE ×2 (08:30→15:15)
[2023-01-24] MEDS: DOCUSATE SODIUM 100 MG CAPSULE PO SCH (09:07)
[2023-01-24] MEDS: PANTOPRAZOLE SODIUM 40 MG/VIAL IVP SCH (09:07)
[2023-01-24 12:00] VITALS: BP 123/60
[2023-01-24] MEDS: AZITHROMYCIN 500 MG/NS 250 ML IV SCH (12:12)
[2023-01-24] MEDS: CefTRIAXone 1 GM/DEXTROSE 50 ML IV SCH (12:13)
[2023-01-24 12:26] LABS: GLUCOSE,POINT OF CARE 80 MG/DL (70-110)
[2023-01-24 16:00] VITALS: BP 125/80
[2023-01-24 18:06] LABS: GLUCOSE,POINT OF CARE 78 MG/DL (70-110)
[2023-01-24 20:00] VITALS: BP 125/75
[2023-01-24] MEDS: DOCUSATE SODIUM 100 MG/10 ML LIQUID UDCUP NG SCH (21:00)
[2023-01-25] VITALS (15 sets, daily range): BP systolic 93–149; BP diastolic 48–93
[2023-01-25 02:46] LABS: GLUCOSE,POINT OF CARE 74 MG/DL (70-110)
[2023-01-25] MEDS ORDERED: SODIUM CHLORIDE 0.9% 250 ML IV ONE (05:53)
[2023-01-25 06:08] LABS: BASOPHILS % (AUTO) 0.1 % (0.0-2.0); EOSINOPHILS % (AUTO) 1.8 % (1.0-6.0); HEMATOCRIT 26.2 % (41-53); HEMOGLOBIN 9.1 g/dL (13.5-17.5); LYMPHOCYTES # (AUTO) 0.4 K/uL (1.0-4.8); LYMPHOCYTES % (AUTO) 4.3 % (22.0-44.0); MEAN CORPUSCULAR HEMOGLOBIN 30.6 pg (26.0-34.0); MEAN CORPUSCULAR HGB CONC 34.7 G/dL (31.0-37.0); MEAN CORPUSCULAR VOLUME 88 fL (80-100); MONOCYTES # (AUTO) 0.5 K/uL (0.1-1.0); NEUTROPHILS # (AUTO) 8.6 K/uL (1.8-7.7); PLATELET COUNT (AUTO) 102 K/uL (150-450); RED BLOOD CELL COUNT(AUTO) 2.97 MIL/uL (4.50-5.90)
[2023-01-25 06:39] LABS: NEUTROPHILS % (AUTO) 88.8 % (40.0-70.0)
[2023-01-25] MEDS: HEPARIN SODIUM,PORCINE 5,000 UNITS/ML VIAL SQ SCH ×2 (07:51)
[2023-01-25] MEDS: DOCUSATE SODIUM 100 MG/10 ML LIQUID UDCUP NG SCH ×2 (07:51→20:30)
[2023-01-25] MEDS: PANTOPRAZOLE SODIUM 40 MG/VIAL IVP SCH (07:51)
[2023-01-25 09:02] LABS: ALBUMIN 1.7 g/dL (3.4-5.0); CALCIUM, TOTAL 8.4 mg/dL (8.8-10.5); CREATININE 3.55 mg/dL (0.60-1.30); POTASSIUM 4.2 mmol/L (3.5-5.1); TOTAL PROTEIN, SERUM 5.1 g/dL (6.4-8.2)
[2023-01-25] MEDS: DEXMEDETOMIDINE HCL 400 MCG in SODIUM CHLORIDE 0.9% 96 ML IV PRN (10:19)
[2023-01-25 10:31] LABS: GLUCOSE,POINT OF CARE 75 MG/DL (70-110)
[2023-01-25] MEDS ORDERED: SODIUM CITRATE 4% CATH FLUSH 5 ML SYRINGE IVCATH ONE ×2 (12:30)
[2023-01-25 13:36] LABS: GLUCOSE,POINT OF CARE 82 MG/DL (70-110)
[2023-01-25] MEDS: PHENYLEPHRINE 200 MG/D5%-WATER 250 ML IV PRN (14:20)
[2023-01-25] MEDS: CefTRIAXone 1 GM/DEXTROSE 50 ML IV SCH (14:22)
[2023-01-25] MEDS: AZITHROMYCIN 500 MG/NS 250 ML IV SCH (14:22)
[2023-01-25] MEDS ORDERED: SODIUM CHLORIDE 0.9% 500 ML IV ONE (15:44)
[2023-01-25 19:41] LABS: GLUCOSE,POINT OF CARE 83 MG/DL (70-110)
[2023-01-25] MEDS: APIXABAN 2.5 MG TABLET NG SCH (21:05)
[2023-01-25] MEDS: ACETAMINOPHEN 325 MG TABLET PO PRN (23:35)
[2023-01-26] VITALS: BP 121/52
[2023-01-26 04:00] VITALS: BP 135/54
[2023-01-26 05:35] LABS: BASOPHILS % (AUTO) 0.2 % (0.0-2.0); EOSINOPHILS % (AUTO) 2.1 % (1.0-6.0); HEMOGLOBIN 9.5 g/dL (13.5-17.5); LYMPHOCYTES # (AUTO) 0.5 K/uL (1.0-4.8); LYMPHOCYTES % (AUTO) 5.5 % (22.0-44.0); MEAN CORPUSCULAR HEMOGLOBIN 30.1 pg (26.0-34.0); MEAN CORPUSCULAR VOLUME 89 fL (80-100); MONOCYTES # (AUTO) 0.6 K/uL (0.1-1.0); NEUTROPHILS # (AUTO) 8.5 K/uL (1.8-7.7); PLATELET COUNT (AUTO) 132 K/uL (150-450); RED BLOOD CELL COUNT(AUTO) 3.15 MIL/uL (4.50-5.90); RED CELL DISTRIBUTION WIDTH 17.1 % (11.5-14.5)
[2023-01-26 05:44] LABS: NEUTROPHILS % (AUTO) 86.2 % (40.0-70.0)
[2023-01-26 05:50] LABS: ALBUMIN 1.7 g/dL (3.4-5.0); BILIRUBIN,TOTAL 0.8 mg/dL (0.1-1.0); CALCIUM, TOTAL 8.4 mg/dL (8.8-10.5); CREATININE 3.16 mg/dL (0.60-1.30); MAGNESIUM 1.8 mg/dL (1.80-2.40); PHOSPHORUS 3.6 mg/dL (2.5-4.9); POTASSIUM 3.9 mmol/L (3.5-5.1); TOTAL PROTEIN, SERUM 5.1 g/dL (6.4-8.2)
[2023-01-26 06:36] LABS: GLUCOSE,POINT OF CARE 82 MG/DL (70-110)
[2023-01-26 06:37] LABS: GLUCOSE,POINT OF CARE 95 MG/DL (70-110)
[2023-01-26 08:00] VITALS: BP 152/56
[2023-01-26] MEDS: PANTOPRAZOLE SODIUM 40 MG/VIAL IVP SCH (08:15)
[2023-01-26] MEDS: MIDODRINE HCL 5 MG TABLET NG SCH ×3 (08:16→20:51)
[2023-01-26] MEDS: APIXABAN 2.5 MG TABLET NG SCH ×2 (08:16→20:50)
[2023-01-26] MEDS: DOCUSATE SODIUM 100 MG/10 ML LIQUID UDCUP NG SCH ×2 (08:19→20:51)
[2023-01-26] MEDS: AMIODARONE HCL 200 MG TABLET NG SCH ×3 (08:19→20:51)
[2023-01-26 12:00] VITALS: BP 134/58
[2023-01-26] MEDS: CefTRIAXone 1 GM/DEXTROSE 50 ML IV SCH (12:10)
[2023-01-26 13:06] LABS: GLUCOSE,POINT OF CARE 88 MG/DL (70-110)
[2023-01-26] MEDS: AZITHROMYCIN 500 MG/NS 250 ML IV SCH (13:07)
[2023-01-26] MEDS: MetroNIDAZOLE 500 MG TABLET PO SCH (15:57)
[2023-01-26 16:00] VITALS: BP 105/46
[2023-01-26] MEDS: DEXMEDETOMIDINE HCL 400 MCG in SODIUM CHLORIDE 0.9% 96 ML IV PRN (17:26)
[2023-01-26 20:00] VITALS: BP 108/50
[2023-01-26 20:06] LABS: GLUCOSE,POINT OF CARE 72 MG/DL (70-110)
[2023-01-27] VITALS: BP 115/49
[2023-01-27] MEDS: MetroNIDAZOLE 500 MG TABLET PO SCH ×3 (00:45→17:03)
[2023-01-27 04:00] VITALS: BP 133/51
[2023-01-27] MEDS ORDERED: SODIUM CHLORIDE 0.9% 250 ML IV ONE (04:11)
[2023-01-27 05:31] LABS: GLUCOSE,POINT OF CARE 73 MG/DL (70-110)
[2023-01-27 05:31] LABS: GLUCOSE,POINT OF CARE 78 MG/DL (70-110)
[2023-01-27 05:55] LABS: BASOPHILS % (AUTO) 0.3 % (0.0-2.0); EOSINOPHILS % (AUTO) 3.6 % (1.0-6.0); HEMATOCRIT 27.8 % (41-53); HEMOGLOBIN 9.6 g/dL (13.5-17.5); LYMPHOCYTES # (AUTO) 0.5 K/uL (1.0-4.8); LYMPHOCYTES % (AUTO) 5.6 % (22.0-44.0); MEAN CORPUSCULAR HEMOGLOBIN 30.2 pg (26.0-34.0); MEAN CORPUSCULAR HGB CONC 34.4 G/dL (31.0-37.0); MEAN CORPUSCULAR VOLUME 88 fL (80-100); MONOCYTES # (AUTO) 0.5 K/uL (0.1-1.0); MONOCYTES % (AUTO) 6.2 % (2.0-9.0); NEUTROPHILS # (AUTO) 7.3 K/uL (1.8-7.7); NEUTROPHILS % (AUTO) 84.3 % (40.0-70.0); PLATELET COUNT (AUTO) 162 K/uL (150-450); RED BLOOD CELL COUNT(AUTO) 3.17 MIL/uL (4.50-5.90); RED CELL DISTRIBUTION WIDTH 16.2 % (11.5-14.5)
[2023-01-27 06:15] LABS: ALBUMIN 1.6 g/dL (3.4-5.0); BILIRUBIN,TOTAL 0.5 mg/dL (0.1-1.0); CALCIUM, TOTAL 8.5 mg/dL (8.8-10.5); CREATININE 3.57 mg/dL (0.60-1.30); POTASSIUM 3.9 mmol/L (3.5-5.1); TOTAL PROTEIN, SERUM 5.1 g/dL (6.4-8.2)
[2023-01-27 08:00] VITALS: BP 117/44
[2023-01-27] MEDS: DOCUSATE SODIUM 100 MG/10 ML LIQUID UDCUP NG SCH ×2 (08:07→21:00)
[2023-01-27] MEDS: MIDODRINE HCL 5 MG TABLET NG SCH ×3 (08:08→21:31)
[2023-01-27] MEDS: APIXABAN 2.5 MG TABLET NG SCH ×2 (08:08→21:31)
[2023-01-27] MEDS: PANTOPRAZOLE SODIUM 40 MG/VIAL IVP SCH (08:08)
[2023-01-27] MEDS ORDERED: BUMETANIDE 0.25 MG/ML 4 ML VIAL IVP ONE (08:45)
[2023-01-27 12:00] VITALS: BP 124/47
[2023-01-27] MEDS: AZITHROMYCIN 500 MG/NS 250 ML IV SCH (14:29)
[2023-01-27] MEDS: CefTRIAXone 1 GM/DEXTROSE 50 ML IV SCH (14:30)
[2023-01-27 15:14] LABS: ABG BASE EXCESS 4.7 mmol/L (-2.0-3.0); ABG CARBOXYHEMOGLOBIN 0.3 % (0.0-1.5); ABG HCO3 28.5 mmol/L (22.0-26.0); ABG METHEMOGLOBIN 0.3 % (0.0-1.5); ABG OXYGEN SATURATION 96.1 % (95.0-98.0); ABG OXYHEMOGLOBIN 95.5 % (94.0-100.0); ABG PCO2 37 mmHg (35-45); ABG PH 7.497 (7.35-7.450); ABG TOTAL HEMOGLOBIN 9.6 G/dL (12.0-18.0); SOURCE, BLOOD GAS ARTERIAL; TEMPERATURE, FAHRENHEIT, BG 98.3 FAHREN (96.0-98.6)
[2023-01-27 15:15] LABS: O2 DEVICE,BLOOD GAS VENTILATOR (ROOM AIR); PEEP,BG 5 cm H2O; PRESSURE SUPPORT, BG 5 cm H2O; SITE, BLOOD GAS ARTERIAL LINE; SPONTANEOUS VT, BG 463 ml; VENT MODE, BG Press. Support Vent. (ROOM AIR)
[2023-01-27 16:00] VITALS: BP 95/36
[2023-01-27 17:26] LABS: GLUCOSE,POINT OF CARE 89 MG/DL (70-110)
[2023-01-27 19:06] LABS: S PNEUMO SOURCE Urine; STREP PNEUMONIAE AG URINE Negative (Negative)
[2023-01-27 19:26] LABS: GLUCOSE,POINT OF CARE 85 MG/DL (70-110)
[2023-01-27 20:00] VITALS: BP 127/45
[2023-01-27 21:46] LABS: GLUCOSE,POINT OF CARE 94 MG/DL (70-110)
[2023-01-28] VITALS: BP 135/46
[2023-01-28] MEDS: MetroNIDAZOLE 500 MG TABLET PO SCH ×3 (00:10→17:02)
[2023-01-28 04:00] VITALS: BP 133/46
[2023-01-28 05:56] LABS: BASOPHILS % (AUTO) 0.5 % (0.0-2.0); EOSINOPHILS % (AUTO) 4.2 % (1.0-6.0); HEMATOCRIT 24.5 % (41-53); HEMOGLOBIN 8.6 g/dL (13.5-17.5); LYMPHOCYTES # (AUTO) 0.4 K/uL (1.0-4.8); LYMPHOCYTES % (AUTO) 5.9 % (22.0-44.0); MEAN CORPUSCULAR HEMOGLOBIN 30.9 pg (26.0-34.0); MEAN CORPUSCULAR HGB CONC 35.1 G/dL (31.0-37.0); MEAN CORPUSCULAR VOLUME 88 fL (80-100); MONOCYTES # (AUTO) 0.5 K/uL (0.1-1.0); MONOCYTES % (AUTO) 7.1 % (2.0-9.0); NEUTROPHILS # (AUTO) 5.8 K/uL (1.8-7.7); NEUTROPHILS % (AUTO) 82.3 % (40.0-70.0); PLATELET COUNT (AUTO) 174 K/uL (150-450); RED BLOOD CELL COUNT(AUTO) 2.78 MIL/uL (4.50-5.90); RED CELL DISTRIBUTION WIDTH 16.7 % (11.5-14.5)
[2023-01-28 06:24] LABS: ALBUMIN 1.5 g/dL (3.4-5.0); BILIRUBIN,TOTAL 0.4 mg/dL (0.1-1.0); CREATININE 3.71 mg/dL (0.60-1.30); TOTAL PROTEIN, SERUM 4.7 g/dL (6.4-8.2)
[2023-01-28 07:11] LABS: GLUCOSE,POINT OF CARE 106 MG/DL (70-110)
[2023-01-28 08:00] VITALS: BP 120/41
[2023-01-28] MEDS: APIXABAN 2.5 MG TABLET NG SCH ×2 (08:09→21:52)
[2023-01-28] MEDS: PANTOPRAZOLE SODIUM 40 MG/VIAL IVP SCH (08:09)
[2023-01-28] MEDS: DOCUSATE SODIUM 100 MG/10 ML LIQUID UDCUP NG SCH ×2 (08:09→21:00)
[2023-01-28] MEDS: MIDODRINE HCL 5 MG TABLET NG SCH ×3 (08:09→21:52)
[2023-01-28 12:00] VITALS: BP 119/82
[2023-01-28] MEDS: CefTRIAXone 1 GM/DEXTROSE 50 ML IV SCH (14:49)
[2023-01-28 15:07] LABS: LEGIONELLA PNEUMO AG URINE Negative (Negative)
[2023-01-28 16:00] VITALS: BP 114/40
[2023-01-28 16:07] LABS: S PNEUMO SOURCE Urine; STREP PNEUMONIAE AG URINE Negative (Negative)
[2023-01-28 16:12] LABS: ABG BASE EXCESS 4.4 mmol/L (-2.0-3.0); ABG CARBOXYHEMOGLOBIN 0.7 % (0.0-1.5); ABG HCO3 28.3 mmol/L (22.0-26.0); ABG METHEMOGLOBIN 0.3 % (0.0-1.5); ABG OXYGEN CONTENT 11.7 mL/dL (15.0-23.0); ABG OXYGEN SATURATION 98.5 % (95.0-98.0); ABG OXYHEMOGLOBIN 97.5 % (94.0-100.0); ABG PCO2 36 mmHg (35-45); ABG PH 7.499 (7.35-7.450); ABG TOTAL HEMOGLOBIN 8.3 G/dL (12.0-18.0); PO2, ARTERIAL BG 145.9 mmHg (75.0-83.0); SOURCE, BLOOD GAS ARTERIAL; TEMPERATURE, FAHRENHEIT, BG 100.7 FAHREN (96.0-98.6)
[2023-01-28 16:13] LABS: ABG A-A DIFF O2 60.4 mmHg (10-20.0); O2 DEVICE,BLOOD GAS VENTILATOR (ROOM AIR); SITE, BLOOD GAS ARTERIAL LINE
[2023-01-28 16:14] LABS: PEEP,BG 5 cm H2O; PRESSURE SUPPORT, BG 8 cm H2O; VENT MODE, BG Press. Support Vent. (ROOM AIR); VT, ABG 450 ml
[2023-01-28 16:15] LABS: SPONTANEOUS VT, BG 545 ml
[2023-01-28] MEDS: ACETAMINOPHEN 325 MG TABLET PO PRN ×2 (17:02→21:52)
[2023-01-28 18:22] LABS: GLUCOSE,POINT OF CARE 102 MG/DL (70-110)
[2023-01-28 18:22] LABS: GLUCOSE,POINT OF CARE 109 MG/DL (70-110)
[2023-01-28 20:00] VITALS: BP 125/46
[2023-01-28] MEDS: DEXMEDETOMIDINE HCL 400 MCG in SODIUM CHLORIDE 0.9% 96 ML IV PRN (20:28)
[2023-01-28 20:31] LABS: GLUCOSE,POINT OF CARE 96 MG/DL (70-110)
[2023-01-29] VITALS: BP 130/49
[2023-01-29] MEDS: MetroNIDAZOLE 500 MG TABLET PO SCH ×3 (00:46→16:14)
[2023-01-29] MEDS ORDERED: SODIUM CHLORIDE 0.9% 250 ML IV ONE (03:02)
[2023-01-29 04:00] VITALS: BP 120/50
[2023-01-29 06:53] LABS: C-REACTIVE PROTEIN QUANT 3.4 mg/dL (0.00-0.30); CALCIUM, TOTAL 8.3 mg/dL (8.8-10.5); CREATININE 3.67 mg/dL (0.60-1.30); POTASSIUM 3.9 mmol/L (3.5-5.1)
[2023-01-29 08:00] VITALS: BP 85/41
[2023-01-29] MEDS: APIXABAN 2.5 MG TABLET NG SCH ×2 (08:26→21:57)
[2023-01-29] MEDS: DOCUSATE SODIUM 100 MG/10 ML LIQUID UDCUP NG SCH ×2 (08:27→21:00)
[2023-01-29] MEDS: PANTOPRAZOLE SODIUM 40 MG/VIAL IVP SCH (08:27)
[2023-01-29] MEDS: MIDODRINE HCL 5 MG TABLET NG SCH ×3 (08:27→21:57)
[2023-01-29 11:26] LABS: GLUCOSE,POINT OF CARE 99 MG/DL (70-110)
[2023-01-29 12:00] VITALS: BP 104/77
[2023-01-29] MEDS: CefTRIAXone 1 GM/DEXTROSE 50 ML IV SCH (12:37)
[2023-01-29 15:59] LABS: ABG A-A DIFF O2 122.2 mmHg (10-20.0); ABG BASE EXCESS 2.7 mmol/L (-2.0-3.0); ABG CARBOXYHEMOGLOBIN 0.7 % (0.0-1.5); ABG HCO3 26.8 mmol/L (22.0-26.0); ABG METHEMOGLOBIN 0.3 % (0.0-1.5); ABG OXYGEN CONTENT 12.4 mL/dL (15.0-23.0); ABG OXYGEN SATURATION 96.1 % (95.0-98.0); ABG OXYHEMOGLOBIN 95.1 % (94.0-100.0); ABG PCO2 36 mmHg (35-45); ABG PH 7.477 (7.35-7.450); ABG TOTAL HEMOGLOBIN 9.2 G/dL (12.0-18.0); CPAP, BG 5 cm H2O; O2 DEVICE,BLOOD GAS VENTILATOR (ROOM AIR); PRESSURE SUPPORT, BG 8 cm H2O; SITE, BLOOD GAS LFT RADIAL; SOURCE, BLOOD GAS ARTERIAL; SPONTANEOUS VT, BG 481 ml; TEMPERATURE, FAHRENHEIT, BG 98.9 FAHREN (96.0-98.6); VENT MODE, BG CPAP (ROOM AIR)
[2023-01-29 16:00] VITALS: BP 95/39
[2023-01-29] MEDS: DEXTROSE 5%-WATER 1,000 ML IV SCH (18:31)
[2023-01-29 20:00] VITALS: BP 107/40
[2023-01-29 20:31] LABS: GLUCOSE,POINT OF CARE 96 MG/DL (70-110)
[2023-01-29 20:31] LABS: GLUCOSE,POINT OF CARE 85 MG/DL (70-110)
[2023-01-29] MEDS: DEXMEDETOMIDINE HCL 400 MCG in SODIUM CHLORIDE 0.9% 96 ML IV PRN (21:57)
[2023-01-29] MEDS: ACETAMINOPHEN 325 MG TABLET PO PRN (21:58)
[2023-01-30] VITALS: BP 105/38
[2023-01-30] MEDS: MetroNIDAZOLE 500 MG TABLET PO SCH ×3 (01:52→15:35)
[2023-01-30 04:00] VITALS: BP 108/67
[2023-01-30 06:01] LABS: GLUCOSE,POINT OF CARE 91 MG/DL (70-110)
[2023-01-30 06:46] LABS: BASOPHILS % (AUTO) 1.1 % (0.0-2.0); EOSINOPHILS % (AUTO) 3.4 % (1.0-6.0); HEMATOCRIT 24.2 % (41-53); HEMOGLOBIN 8.1 g/dL (13.5-17.5); LYMPHOCYTES # (AUTO) 0.5 K/uL (1.0-4.8); LYMPHOCYTES % (AUTO) 10.7 % (22.0-44.0); MEAN CORPUSCULAR HEMOGLOBIN 30.3 pg (26.0-34.0); MEAN CORPUSCULAR HGB CONC 33.6 G/dL (31.0-37.0); MEAN CORPUSCULAR VOLUME 90 fL (80-100); MONOCYTES # (AUTO) 0.4 K/uL (0.1-1.0); MONOCYTES % (AUTO) 8.5 % (2.0-9.0); NEUTROPHILS # (AUTO) 3.6 K/uL (1.8-7.7); NEUTROPHILS % (AUTO) 76.3 % (40.0-70.0); PLATELET COUNT (AUTO) 194 K/uL (150-450); RED BLOOD CELL COUNT(AUTO) 2.68 MIL/uL (4.50-5.90); RED CELL DISTRIBUTION WIDTH 17.1 % (11.5-14.5)
[2023-01-30 06:49] LABS: CALCIUM, TOTAL 7.9 mg/dL (8.8-10.5); CREATININE 3.11 mg/dL (0.60-1.30); PHOSPHORUS 5.7 mg/dL (2.5-4.9); POTASSIUM 3.8 mmol/L (3.5-5.1)
[2023-01-30 08:00] VITALS: BP 114/42
[2023-01-30] MEDS: MIDODRINE HCL 5 MG TABLET NG SCH ×3 (08:30→20:30)
[2023-01-30] MEDS: APIXABAN 2.5 MG TABLET NG SCH ×2 (08:30→20:29)
[2023-01-30] MEDS: PANTOPRAZOLE SODIUM 40 MG/VIAL IVP SCH (08:48)
[2023-01-30] MEDS: DOCUSATE SODIUM 100 MG/10 ML LIQUID UDCUP NG SCH ×2 (08:51→20:28)
[2023-01-30 10:30] LABS: GLUCOSE,POINT OF CARE 81 MG/DL (70-110)
[2023-01-30] MEDS: CefTRIAXone 1 GM/DEXTROSE 50 ML IV SCH (11:12)
[2023-01-30 12:00] VITALS: BP 122/43
[2023-01-30] MEDS: DEXTROSE 5%-WATER 1,000 ML IV SCH (14:47)
[2023-01-30 16:00] VITALS: BP 133/63
[2023-01-30 20:14] VITALS: BP 110/81
[2023-01-30 20:36] LABS: GLUCOSE,POINT OF CARE 92 MG/DL (70-110)
[2023-01-30 20:36] LABS: GLUCOSE,POINT OF CARE 88 MG/DL (70-110)
[2023-01-31 00:38] VITALS: BP 121/64
[2023-01-31] MEDS: MetroNIDAZOLE 500 MG TABLET PO SCH ×4 (01:08→23:11)
[2023-01-31 01:21] LABS: GLUCOMETER DEV NAME(LOC) 5S.2C; GLUCOSE,POINT OF CARE 97 MG/DL (70-110)
[2023-01-31 05:15] VITALS: BP 119/61
[2023-01-31 07:26] LABS: CALCIUM, TOTAL 8.2 mg/dL (8.8-10.5); CREATININE 2.51 mg/dL (0.60-1.30); MAGNESIUM 1.8 mg/dL (1.80-2.40); PHOSPHORUS 4.9 mg/dL (2.5-4.9); POTASSIUM 3.5 mmol/L (3.5-5.1)
[2023-01-31 07:31] VITALS: BP 134/60
[2023-01-31] MEDS: APIXABAN 2.5 MG TABLET NG SCH ×2 (10:20→21:08)
[2023-01-31] MEDS: PANTOPRAZOLE SODIUM 40 MG/VIAL IVP SCH (10:20)
[2023-01-31] MEDS: MIDODRINE HCL 5 MG TABLET NG SCH ×3 (10:21→21:08)
[2023-01-31] MEDS: DOCUSATE SODIUM 100 MG/10 ML LIQUID UDCUP NG SCH ×2 (10:22→21:00)
[2023-01-31 11:12] VITALS: BP 107/57
[2023-01-31] MEDS: CefTRIAXone 1 GM/DEXTROSE 50 ML IV SCH (12:28)
[2023-01-31] MEDS: DEXTROSE 5%-WATER 1,000 ML IV SCH (12:29)
[2023-01-31 16:05] VITALS: BP 127/60
[2023-01-31 20:00] VITALS: BP 135/67
[2023-01-31 20:51] LABS: GLUCOMETER DEV NAME(LOC) 5S.2C; GLUCOSE,POINT OF CARE 100 MG/DL (70-110)
[2023-01-31 20:51] LABS: GLUCOMETER DEV NAME(LOC) 5S.2C; GLUCOSE,POINT OF CARE 98 MG/DL (70-110)
[2023-01-31 20:51] LABS: GLUCOMETER DEV NAME(LOC) 5S.2C; GLUCOSE,POINT OF CARE 107 MG/DL (70-110)
[2023-02-01 00:16] VITALS: BP 146/66
[2023-02-01 04:00] VITALS: BP 122/75
[2023-02-01] MEDS: DEXTROSE 5%-WATER 1,000 ML IV SCH (05:30)
[2023-02-01 06:16] LABS: GLUCOMETER DEV NAME(LOC) 5S.2C; GLUCOSE,POINT OF CARE 117 MG/DL (70-110)
[2023-02-01 06:16] LABS: GLUCOMETER DEV NAME(LOC) 5S.2C; GLUCOSE,POINT OF CARE 101 MG/DL (70-110)
[2023-02-01 07:30] VITALS: BP 132/66
[2023-02-01 07:36] LABS: CALCIUM, TOTAL 8.6 mg/dL (8.8-10.5); CREATININE 1.85 mg/dL (0.60-1.30); MAGNESIUM 1.6 mg/dL (1.80-2.40); PHOSPHORUS 3.7 mg/dL (2.5-4.9); POTASSIUM 3.6 mmol/L (3.5-5.1)
[2023-02-01] MEDS ORDERED: MAGNESIUM SULFATE 2 GM/WATER 50 ML IV ONE (07:45)
[2023-02-01] MEDS: PANTOPRAZOLE SODIUM 40 MG/VIAL IVP SCH (08:54)
[2023-02-01] MEDS: APIXABAN 2.5 MG TABLET NG SCH ×2 (08:54→20:51)
[2023-02-01] MEDS: MetroNIDAZOLE 500 MG TABLET PO SCH (08:54)
[2023-02-01] MEDS: MIDODRINE HCL 5 MG TABLET NG SCH ×3 (08:54→21:00)
[2023-02-01] MEDS: DOCUSATE SODIUM 100 MG/10 ML LIQUID UDCUP NG SCH ×2 (09:00→20:51)
[2023-02-01] MEDS ORDERED: SODIUM CHLORIDE 0.9% 250 ML IV ONE (09:01)
[2023-02-01 11:11] VITALS: BP 136/66
[2023-02-01] MEDS: PHENOL 1.4% 177 ML SPRAY BOTTLE PO PRN (13:27)
[2023-02-01 15:59] VITALS: BP 131/57
[2023-02-01 20:14] VITALS: BP 127/57
[2023-02-01 20:56] LABS: GLUCOMETER DEV NAME(LOC) 5S.2C; GLUCOSE,POINT OF CARE 111 MG/DL (70-110)
[2023-02-01 20:56] LABS: GLUCOMETER DEV NAME(LOC) 5S.2C; GLUCOSE,POINT OF CARE 114 MG/DL (70-110)
[2023-02-01 21:26] LABS: GLUCOMETER DEV NAME(LOC) 5S.2C; GLUCOSE,POINT OF CARE 103 MG/DL (70-110)
[2023-02-02 00:30] VITALS: BP 116/50
[2023-02-02] MEDS: DEXTROSE 5%-WATER 1,000 ML IV SCH ×2 (02:01→20:58)
[2023-02-02 04:13] VITALS: BP 133/61
[2023-02-02 06:51] LABS: GLUCOMETER DEV NAME(LOC) 5N.1C; GLUCOSE,POINT OF CARE 90 MG/DL (70-110)
[2023-02-02 07:24] LABS: CALCIUM, TOTAL 8.4 mg/dL (8.8-10.5); CREATININE 1.49 mg/dL (0.60-1.30); MAGNESIUM 1.9 mg/dL (1.80-2.40); PHOSPHORUS 3.1 mg/dL (2.5-4.9); POTASSIUM 3.3 mmol/L (3.5-5.1)
[2023-02-02] MEDS ORDERED: POTASSIUM CHLORIDE 20 MEQ ER TABLET PO ONE (07:45)
[2023-02-02 07:50] VITALS: BP 109/49
[2023-02-02] MEDS: PANTOPRAZOLE SODIUM 40 MG/VIAL IVP SCH (08:57)
[2023-02-02] MEDS: DOCUSATE SODIUM 100 MG/10 ML LIQUID UDCUP NG SCH ×2 (08:57→20:04)
[2023-02-02] MEDS: APIXABAN 2.5 MG TABLET NG SCH ×2 (08:57→20:04)
[2023-02-02] MEDS: HYDROCODONE/ACETAMINOPHEN 5-325 MG TABLET PO PRN ×2 (08:58→14:26)
[2023-02-02 11:45] VITALS: BP 116/56
[2023-02-02 18:00] VITALS: BP 126/55
[2023-02-02 19:35] VITALS: BP 118/52
[2023-02-02 21:21] LABS: GLUCOMETER DEV NAME(LOC) 5S.2C; GLUCOSE,POINT OF CARE 108 MG/DL (70-110)
[2023-02-03 01:22] VITALS: BP 116/60
[2023-02-03 04:48] VITALS: BP 126/71
[2023-02-03 07:11] LABS: BASOPHILS % (AUTO) 1.9 % (0.0-2.0); EOSINOPHILS % (AUTO) 2.9 % (1.0-6.0); HEMATOCRIT 25.5 % (41-53); HEMOGLOBIN 8.8 g/dL (13.5-17.5); LYMPHOCYTES # (AUTO) 0.6 K/uL (1.0-4.8); LYMPHOCYTES % (AUTO) 12.3 % (22.0-44.0); MEAN CORPUSCULAR HEMOGLOBIN 30.8 pg (26.0-34.0); MEAN CORPUSCULAR HGB CONC 34.4 G/dL (31.0-37.0); MEAN CORPUSCULAR VOLUME 90 fL (80-100); MONOCYTES # (AUTO) 0.4 K/uL (0.1-1.0); MONOCYTES % (AUTO) 7.3 % (2.0-9.0); NEUTROPHILS # (AUTO) 3.9 K/uL (1.8-7.7); NEUTROPHILS % (AUTO) 75.6 % (40.0-70.0); PLATELET COUNT (AUTO) 210 K/uL (150-450); RED BLOOD CELL COUNT(AUTO) 2.85 MIL/uL (4.50-5.90); RED CELL DISTRIBUTION WIDTH 16.8 % (11.5-14.5)
[2023-02-03 07:25] LABS: ALANINE AMINOTRANSFERASE 53 U/L (12-78); ALBUMIN 1.9 g/dL (3.4-5.0); ALKALINE PHOSPHATASE 78 U/L (46-116); ANION GAP 3 mmol/L (8-16); ASPARTATE AMINOTRANSFERASE 42 U/L (15-37); BILIRUBIN,TOTAL 0.4 mg/dL (0.1-1.0); CALCIUM, TOTAL 8.3 mg/dL (8.8-10.5); CARBON DIOXIDE 30 mmol/L (22-29); CHLORIDE 105 mmol/L (98-107); CREATININE 1.18 mg/dL (0.60-1.30); GLOMERULAR FILTR. RATE CALC > 60 mL/min (>60); GLUCOSE,RANDOM 99 mg/dL (70-110); POTASSIUM 3.5 mmol/L (3.5-5.1); SODIUM SERUM 138 mmol/L (136-145); TOTAL PROTEIN, SERUM 5.1 g/dL (6.4-8.2); UREA NITROGEN, BLOOD 39 mg/dL (7-18)
[2023-02-03 07:45] VITALS: BP 122/48
[2023-02-03 08:15] LABS: GLUCOMETER DEV NAME(LOC) 5N.1C; GLUCOSE,POINT OF CARE 93 MG/DL (70-110)
[2023-02-03] MEDS: PANTOPRAZOLE SODIUM 40 MG/VIAL IVP SCH (09:00)
[2023-02-03] MEDS: DOCUSATE SODIUM 100 MG/10 ML LIQUID UDCUP NG SCH ×2 (09:00→21:40)
[2023-02-03 11:50] VITALS: BP 122/63
[2023-02-03 11:56] LABS: GLUCOMETER DEV NAME(LOC) 5N.1C; GLUCOSE,POINT OF CARE 108 MG/DL (70-110)
[2023-02-03] MEDS: DEXTROSE 5%-WATER 1,000 ML IV SCH (18:03)
[2023-02-03 19:41] LABS: GLUCOMETER DEV NAME(LOC) 5S.2C; GLUCOSE,POINT OF CARE 104 MG/DL (70-110)
[2023-02-03 19:59] VITALS: BP 144/65
[2023-02-03 20:05] VITALS: BP 125/70
[2023-02-03] MEDS: APIXABAN 5 MG TABLET PO SCH (21:40)
[2023-02-03 23:36] LABS: GLUCOMETER DEV NAME(LOC) 5S.2C; GLUCOSE,POINT OF CARE 112 MG/DL (70-110)
[2023-02-04 01:06] VITALS: BP 129/75
[2023-02-04] MEDS: PHENOL 1.4% 177 ML SPRAY BOTTLE PO PRN (03:10)
[2023-02-04 05:26] VITALS: BP 123/57
[2023-02-04 06:26] LABS: GLUCOMETER DEV NAME(LOC) 5S.2C; GLUCOSE,POINT OF CARE 98 MG/DL (70-110)
[2023-02-04 07:06] LABS: BASOPHILS % (AUTO) 3.4 % (0.0-2.0); EOSINOPHILS % (AUTO) 2.6 % (1.0-6.0); HEMATOCRIT 24.6 % (41-53); HEMOGLOBIN 8.6 g/dL (13.5-17.5); LYMPHOCYTES # (AUTO) 0.6 K/uL (1.0-4.8); LYMPHOCYTES % (AUTO) 10.7 % (22.0-44.0); MEAN CORPUSCULAR HEMOGLOBIN 31.3 pg (26.0-34.0); MEAN CORPUSCULAR HGB CONC 34.8 G/dL (31.0-37.0); MEAN CORPUSCULAR VOLUME 90 fL (80-100); MONOCYTES # (AUTO) 0.4 K/uL (0.1-1.0); MONOCYTES % (AUTO) 7.7 % (2.0-9.0); NEUTROPHILS # (AUTO) 4.3 K/uL (1.8-7.7); NEUTROPHILS % (AUTO) 75.6 % (40.0-70.0); PLATELET COUNT (AUTO) 187 K/uL (150-450); RED BLOOD CELL COUNT(AUTO) 2.75 MIL/uL (4.50-5.90); RED CELL DISTRIBUTION WIDTH 17.1 % (11.5-14.5)
[2023-02-04 07:11] VITALS: BP 144/73
[2023-02-04 07:22] LABS: ALANINE AMINOTRANSFERASE 45 U/L (12-78); ALKALINE PHOSPHATASE 78 U/L (46-116); ANION GAP 3 mmol/L (8-16); ASPARTATE AMINOTRANSFERASE 38 U/L (15-37); BILIRUBIN,TOTAL 0.4 mg/dL (0.1-1.0); CALCIUM, TOTAL 8.3 mg/dL (8.8-10.5); CARBON DIOXIDE 31 mmol/L (22-29); CHLORIDE 106 mmol/L (98-107); CREATININE 1.13 mg/dL (0.60-1.30); GLOMERULAR FILTR. RATE CALC > 60 mL/min (>60); GLUCOSE,RANDOM 94 mg/dL (70-110); POTASSIUM 3.7 mmol/L (3.5-5.1); SODIUM SERUM 140 mmol/L (136-145); UREA NITROGEN, BLOOD 31 mg/dL (7-18)
[2023-02-04 09:27] LABS: PHOSPHORUS 2.8 mg/dL (2.5-4.9)
[2023-02-04] MEDS: PANTOPRAZOLE SODIUM 40 MG/VIAL IVP SCH (10:27)
[2023-02-04] MEDS: APIXABAN 5 MG TABLET PO SCH ×2 (10:27→21:12)
[2023-02-04] MEDS: DOCUSATE SODIUM 100 MG/10 ML LIQUID UDCUP NG SCH ×2 (10:27→21:12)
[2023-02-04 11:06] VITALS: BP 143/86
[2023-02-04 15:35] VITALS: BP 149/77
[2023-02-04 15:56] LABS: GLUCOMETER DEV NAME(LOC) 5S.2C; GLUCOSE,POINT OF CARE 108 MG/DL (70-110)
[2023-02-04 20:05] VITALS: BP 133/66
[2023-02-04] MEDS ORDERED: MAGNESIUM SULFATE 2 GM/WATER 50 ML IV PRN (20:15)
[2023-02-04] MEDS ORDERED: MAGNESIUM SULFATE 4 GM/WATER 100 ML IV PRN (20:15)
[2023-02-04] MEDS ORDERED: MAGNESIUM OXIDE 400 MG TABLET PO PRN (20:15)
[2023-02-04] MEDS: HYDROCODONE/ACETAMINOPHEN 5-325 MG TABLET PO PRN (21:16)
[2023-02-04 23:12] LABS: GLUCOMETER DEV NAME(LOC) 5N.1C; GLUCOSE,POINT OF CARE 96 MG/DL (70-110)
[2023-02-04 23:12] LABS: GLUCOMETER DEV NAME(LOC) 5S.2C; GLUCOSE,POINT OF CARE 91 MG/DL (70-110)
[2023-02-05 00:35] VITALS: BP 129/64
[2023-02-05 06:07] VITALS: BP 141/62
[2023-02-05 07:30] LABS: BASOPHILS % (AUTO) 2.1 % (0.0-2.0); EOSINOPHILS % (AUTO) 2.6 % (1.0-6.0); HEMATOCRIT 25.1 % (41-53); HEMOGLOBIN 8.6 g/dL (13.5-17.5); LYMPHOCYTES # (AUTO) 0.6 K/uL (1.0-4.8); MEAN CORPUSCULAR HEMOGLOBIN 30.8 pg (26.0-34.0); MEAN CORPUSCULAR HGB CONC 34.3 G/dL (31.0-37.0); MEAN CORPUSCULAR VOLUME 90 fL (80-100); MONOCYTES # (AUTO) 0.4 K/uL (0.1-1.0); MONOCYTES % (AUTO) 6.8 % (2.0-9.0); NEUTROPHILS # (AUTO) 4.9 K/uL (1.8-7.7); NEUTROPHILS % (AUTO) 78.5 % (40.0-70.0); PLATELET COUNT (AUTO) 198 K/uL (150-450); RED CELL DISTRIBUTION WIDTH 17.3 % (11.5-14.5)
[2023-02-05 07:40] LABS: ANION GAP 6 mmol/L (8-16); CALCIUM, TOTAL 8.7 mg/dL (8.8-10.5); CARBON DIOXIDE 31 mmol/L (22-29); CHLORIDE 106 mmol/L (98-107); CREATININE 1.05 mg/dL (0.60-1.30); GLOMERULAR FILTR. RATE CALC > 60 mL/min (>60); GLUCOSE,RANDOM 89 mg/dL (70-110); POTASSIUM 3.8 mmol/L (3.5-5.1); SODIUM SERUM 143 mmol/L (136-145); UREA NITROGEN, BLOOD 25 mg/dL (7-18)
[2023-02-05 07:59] VITALS: BP 148/72
[2023-02-05] MEDS: DOCUSATE SODIUM 100 MG/10 ML LIQUID UDCUP NG SCH ×2 (09:42→21:23)
[2023-02-05] MEDS: PANTOPRAZOLE SODIUM 40 MG/VIAL IVP SCH (09:42)
[2023-02-05] MEDS: APIXABAN 5 MG TABLET PO SCH ×2 (09:43→21:23)
[2023-02-05 11:13] VITALS: BP 139/63
[2023-02-05 15:17] VITALS: BP 147/70
[2023-02-05 20:00] VITALS: BP 141/82
[2023-02-05 23:16] LABS: GLUCOMETER DEV NAME(LOC) 5N.1C; GLUCOSE,POINT OF CARE 94 MG/DL (70-110)
[2023-02-05 23:16] LABS: GLUCOMETER DEV NAME(LOC) 5N.1C; GLUCOSE,POINT OF CARE 84 MG/DL (70-110)
[2023-02-06] VITALS: BP 138/65
[2023-02-06 05:15] VITALS: BP 128/67
[2023-02-06 05:26] LABS: GLUCOMETER DEV NAME(LOC) 5S.2C; GLUCOSE,POINT OF CARE 111 MG/DL (70-110)
[2023-02-06 05:26] LABS: GLUCOMETER DEV NAME(LOC) 5S.2C; GLUCOSE,POINT OF CARE 96 MG/DL (70-110)
[2023-02-06 06:16] LABS: GLUCOMETER DEV NAME(LOC) 5N.1C; GLUCOSE,POINT OF CARE 100 MG/DL (70-110)
[2023-02-06 06:47] LABS: BASOPHILS % (AUTO) 2.3 % (0.0-2.0); HEMATOCRIT 25.7 % (41-53); HEMOGLOBIN 9.1 g/dL (13.5-17.5); LYMPHOCYTES # (AUTO) 0.7 K/uL (1.0-4.8); LYMPHOCYTES % (AUTO) 9.4 % (22.0-44.0); MEAN CORPUSCULAR HEMOGLOBIN 31.6 pg (26.0-34.0); MEAN CORPUSCULAR HGB CONC 35.3 G/dL (31.0-37.0); MEAN CORPUSCULAR VOLUME 90 fL (80-100); MONOCYTES # (AUTO) 0.5 K/uL (0.1-1.0); MONOCYTES % (AUTO) 7.5 % (2.0-9.0); NEUTROPHILS # (AUTO) 5.6 K/uL (1.8-7.7); NEUTROPHILS % (AUTO) 78.8 % (40.0-70.0); PLATELET COUNT (AUTO) 189 K/uL (150-450); RED BLOOD CELL COUNT(AUTO) 2.87 MIL/uL (4.50-5.90); RED CELL DISTRIBUTION WIDTH 17.7 % (11.5-14.5)
[2023-02-06 06:51] LABS: ANION GAP 5 mmol/L (8-16); CALCIUM, TOTAL 8.8 mg/dL (8.8-10.5); CARBON DIOXIDE 30 mmol/L (22-29); CHLORIDE 105 mmol/L (98-107); CREATININE 0.92 mg/dL (0.60-1.30); GLOMERULAR FILTR. RATE CALC > 60 mL/min (>60); GLUCOSE,RANDOM 106 mg/dL (70-110); POTASSIUM 3.6 mmol/L (3.5-5.1); SODIUM SERUM 140 mmol/L (136-145); UREA NITROGEN, BLOOD 21 mg/dL (7-18)
[2023-02-06 07:52] VITALS: BP 133/77
[2023-02-06] MEDS: DOCUSATE SODIUM 100 MG/10 ML LIQUID UDCUP NG SCH ×2 (09:00→23:01)
[2023-02-06] MEDS: APIXABAN 5 MG TABLET PO SCH ×2 (09:18→23:01)
[2023-02-06] MEDS: PANTOPRAZOLE SODIUM 40 MG/VIAL IVP SCH (09:18)
[2023-02-06 11:43] VITALS: BP 146/83
[2023-02-06 15:56] VITALS: BP 145/75
[2023-02-06 16:56] LABS: GLUCOMETER DEV NAME(LOC) 5S.2C; GLUCOSE,POINT OF CARE 114 MG/DL (70-110)
[2023-02-06 20:50] VITALS: BP 138/87
[2023-02-06 22:06] LABS: GLUCOMETER DEV NAME(LOC) 5N.1C; GLUCOSE,POINT OF CARE 110 MG/DL (70-110)
[2023-02-07 00:38] VITALS: BP 144/60
[2023-02-07] MEDS: HYDROCODONE/ACETAMINOPHEN 5-325 MG TABLET PO PRN (01:18)
[2023-02-07 05:11] VITALS: BP 127/65
[2023-02-07] MEDS ORDERED: SODIUM CHLORIDE 0.9% 500 ML IV ONE (06:20)
[2023-02-07 06:42] LABS: BASOPHILS % (AUTO) 0.8 % (0.0-2.0); EOSINOPHILS % (AUTO) 1.8 % (1.0-6.0); HEMATOCRIT 28.3 % (41-53); HEMOGLOBIN 9.8 g/dL (13.5-17.5); LYMPHOCYTES # (AUTO) 1.1 K/uL (1.0-4.8); MEAN CORPUSCULAR HEMOGLOBIN 31.6 pg (26.0-34.0); MEAN CORPUSCULAR HGB CONC 34.7 G/dL (31.0-37.0); MEAN CORPUSCULAR VOLUME 91 fL (80-100); MONOCYTES # (AUTO) 0.7 K/uL (0.1-1.0); MONOCYTES % (AUTO) 7.5 % (2.0-9.0); NEUTROPHILS # (AUTO) 7.6 K/uL (1.8-7.7); NEUTROPHILS % (AUTO) 78.9 % (40.0-70.0); PLATELET COUNT (AUTO) 236 K/uL (150-450); RED CELL DISTRIBUTION WIDTH 17.8 % (11.5-14.5)
[2023-02-07 06:57] LABS: ANION GAP 2 mmol/L (8-16); CARBON DIOXIDE 33 mmol/L (22-29); CHLORIDE 108 mmol/L (98-107); CREATININE 0.95 mg/dL (0.60-1.30); GLOMERULAR FILTR. RATE CALC > 60 mL/min (>60); GLUCOSE,RANDOM 101 mg/dL (70-110); SODIUM SERUM 143 mmol/L (136-145); UREA NITROGEN, BLOOD 21 mg/dL (7-18)
[2023-02-07 07:35] VITALS: BP 142/79
[2023-02-07] MEDS: DOCUSATE SODIUM 100 MG/10 ML LIQUID UDCUP NG SCH ×2 (09:00→20:53)
[2023-02-07] MEDS: PANTOPRAZOLE SODIUM 40 MG/VIAL IVP SCH (09:42)
[2023-02-07] MEDS: APIXABAN 5 MG TABLET PO SCH ×2 (09:42→20:56)
[2023-02-07 10:22] LABS: GLUCOMETER DEV NAME(LOC) 5S.2C; GLUCOSE,POINT OF CARE 100 MG/DL (70-110)
[2023-02-07 10:22] LABS: GLUCOMETER DEV NAME(LOC) 5N.1C; GLUCOSE,POINT OF CARE 82 MG/DL (70-110)
[2023-02-07 12:36] LABS: GLUCOMETER DEV NAME(LOC) 5S.2C; GLUCOSE,POINT OF CARE 111 MG/DL (70-110)
[2023-02-07 15:02] VITALS: BP 129/73
[2023-02-07] MEDS ORDERED: SODIUM CHLORIDE 0.9% 1,000 ML ONE (19:29)
[2023-02-07] MEDS: SCOPOLAMINE HYDROBROMIDE 1 MG/72 HOUR PATCH TD SCH (20:56)
[2023-02-07 21:35] VITALS: BP 151/70
[2023-02-08] VITALS (8 sets, daily range): BP systolic 114–157; BP diastolic 60–94
[2023-02-08 05:21] LABS: GLUCOMETER DEV NAME(LOC) 5S.2C; GLUCOSE,POINT OF CARE 95 MG/DL (70-110)
[2023-02-08 05:21] LABS: GLUCOMETER DEV NAME(LOC) 5S.2C; GLUCOSE,POINT OF CARE 89 MG/DL (70-110)
[2023-02-08 07:09] LABS: EOSINOPHILS % (AUTO) 3.8 % (1.0-6.0); HEMATOCRIT 27.5 % (41-53); HEMOGLOBIN 9.5 g/dL (13.5-17.5); LYMPHOCYTES # (AUTO) 0.8 K/uL (1.0-4.8); LYMPHOCYTES % (AUTO) 14.8 % (22.0-44.0); MEAN CORPUSCULAR HEMOGLOBIN 31.1 pg (26.0-34.0); MEAN CORPUSCULAR HGB CONC 34.4 G/dL (31.0-37.0); MEAN CORPUSCULAR VOLUME 90 fL (80-100); MONOCYTES # (AUTO) 0.5 K/uL (0.1-1.0); MONOCYTES % (AUTO) 8.7 % (2.0-9.0); NEUTROPHILS # (AUTO) 4.1 K/uL (1.8-7.7); NEUTROPHILS % (AUTO) 71.7 % (40.0-70.0); PLATELET COUNT (AUTO) 194 K/uL (150-450); RED BLOOD CELL COUNT(AUTO) 3.05 MIL/uL (4.50-5.90); RED CELL DISTRIBUTION WIDTH 17.8 % (11.5-14.5)
[2023-02-08 07:28] LABS: ALANINE AMINOTRANSFERASE 32 U/L (12-78); ALBUMIN 2.2 g/dL (3.4-5.0); ALKALINE PHOSPHATASE 89 U/L (46-116); ANION GAP 6 mmol/L (8-16); ASPARTATE AMINOTRANSFERASE 26 U/L (15-37); BILIRUBIN,TOTAL 0.5 mg/dL (0.1-1.0); CALCIUM, TOTAL 8.7 mg/dL (8.8-10.5); CARBON DIOXIDE 31 mmol/L (22-29); CHLORIDE 106 mmol/L (98-107); CREATININE 0.91 mg/dL (0.60-1.30); GLOMERULAR FILTR. RATE CALC > 60 mL/min (>60); GLUCOSE,RANDOM 91 mg/dL (70-110); POTASSIUM 3.7 mmol/L (3.5-5.1); SODIUM SERUM 143 mmol/L (136-145); TOTAL PROTEIN, SERUM 5.7 g/dL (6.4-8.2); UREA NITROGEN, BLOOD 20 mg/dL (7-18)
[2023-02-08 07:31] LABS: GLUCOMETER DEV NAME(LOC) 5N.1C; GLUCOSE,POINT OF CARE 89 MG/DL (70-110)
[2023-02-08] MEDS: PANTOPRAZOLE SODIUM 40 MG/VIAL IVP SCH (08:29)
[2023-02-08] MEDS: DOCUSATE SODIUM 100 MG/10 ML LIQUID UDCUP NG SCH ×2 (08:30→20:35)
[2023-02-08 12:31] LABS: GLUCOMETER DEV NAME(LOC) 5N.1C; GLUCOSE,POINT OF CARE 83 MG/DL (70-110)
[2023-02-08] MEDS ORDERED: PROPOFOL 1000 MG/ISO-OSM 100 ML IV PRN (17:45)
[2023-02-08 17:55] LABS: BASOPHILS % (AUTO) 0.8 % (0.0-2.0); EOSINOPHILS % (AUTO) 1.7 % (1.0-6.0); HEMATOCRIT 27.6 % (41-53); HEMOGLOBIN 9.1 g/dL (13.5-17.5); LYMPHOCYTES # (AUTO) 0.5 K/uL (1.0-4.8); LYMPHOCYTES % (AUTO) 7.7 % (22.0-44.0); MEAN CORPUSCULAR HEMOGLOBIN 30.3 pg (26.0-34.0); MEAN CORPUSCULAR HGB CONC 32.9 G/dL (31.0-37.0); MEAN CORPUSCULAR VOLUME 92 fL (80-100); MONOCYTES # (AUTO) 0.4 K/uL (0.1-1.0); MONOCYTES % (AUTO) 6.1 % (2.0-9.0); NEUTROPHILS # (AUTO) 5.5 K/uL (1.8-7.7); NEUTROPHILS % (AUTO) 83.7 % (40.0-70.0); PLATELET COUNT (AUTO) 211 K/uL (150-450); RED BLOOD CELL COUNT(AUTO) 2.99 MIL/uL (4.50-5.90); RED CELL DISTRIBUTION WIDTH 18.3 % (11.5-14.5)
[2023-02-08 17:57] LABS: GLUCOMETER DEV NAME(LOC) 5N.1C; GLUCOSE,POINT OF CARE 126 MG/DL (70-110)
[2023-02-08 18:02] LABS: ANION GAP 7 mmol/L (8-16); CALCIUM, TOTAL 8.5 mg/dL (8.8-10.5); CARBON DIOXIDE 31 mmol/L (22-29); CHLORIDE 106 mmol/L (98-107); CREATININE 1.13 mg/dL (0.60-1.30); GLOMERULAR FILTR. RATE CALC > 60 mL/min (>60); GLUCOSE,RANDOM 164 mg/dL (70-110); SODIUM SERUM 144 mmol/L (136-145); UREA NITROGEN, BLOOD 21 mg/dL (7-18)
[2023-02-08 18:04] LABS: B-TYPE NATRIURETIC PEPTIDE 360 pg/mL (0-100)
[2023-02-08 18:10] LABS: ALANINE AMINOTRANSFERASE 35 U/L (12-78); ALBUMIN 2.1 g/dL (3.4-5.0); ALKALINE PHOSPHATASE 91 U/L (46-116); ASPARTATE AMINOTRANSFERASE 44 U/L (15-37); BILIRUBIN,TOTAL 0.5 mg/dL (0.1-1.0); CREATINE KINASE, TOTAL ONLY 73 U/L (39-308); TOTAL PROTEIN, SERUM 5.7 g/dL (6.4-8.2)
[2023-02-08] MEDS ORDERED: ETOMIDATE 2 MG/ML 10 ML VIAL IV ONE (18:24)
[2023-02-08] MEDS ORDERED: ROCURONIUM BROMIDE 10 MG/ML 5 ML VIAL IV ONE (18:24)
[2023-02-08] MEDS: DEXMEDETOMIDINE HCL 400 MCG in SODIUM CHLORIDE 0.9% 96 ML IV PRN (19:53)
[2023-02-08 20:02] LABS: ABG BASE EXCESS 5.3 mmol/L (-2.0-3.0); ABG CARBOXYHEMOGLOBIN 0.8 % (0.0-1.5); ABG HCO3 28.7 mmol/L (22.0-26.0); ABG METHEMOGLOBIN 0.3 % (0.0-1.5); ABG OXYGEN CONTENT 13.9 mL/dL (15.0-23.0); ABG OXYGEN SATURATION 98.4 % (95.0-98.0); ABG OXYHEMOGLOBIN 97.3 % (94.0-100.0); ABG PCO2 44 mmHg (35-45); ABG PH 7.439 (7.35-7.450); PO2, ARTERIAL BG 127.3 mmHg (75.0-83.0); SOURCE, BLOOD GAS ARTERIAL; TEMPERATURE, FAHRENHEIT, BG 98.2 FAHREN (96.0-98.6)
[2023-02-08 20:03] LABS: O2 DEVICE,BLOOD GAS VENT (ROOM AIR); PEEP,BG 5 cm H2O; SITE, BLOOD GAS RT RADIAL; VT, ABG 450 ml
[2023-02-08 20:41] LABS: GLUCOSE,POINT OF CARE 127 MG/DL (70-110)
[2023-02-08 20:56] LABS: GLUCOSE,POINT OF CARE 96 MG/DL (70-110)
[2023-02-09] VITALS: BP 115/62
[2023-02-09 04:00] VITALS: BP 127/65
[2023-02-09] MEDS: DEXTROSE 50%-WATER 25 GM/50 ML SYRINGE IVP PRN ×2 (06:04→23:58)
[2023-02-09 06:11] LABS: BASOPHILS % (AUTO) 0.8 % (0.0-2.0); EOSINOPHILS % (AUTO) 2.2 % (1.0-6.0); HEMATOCRIT 24.8 % (41-53); HEMOGLOBIN 8.5 g/dL (13.5-17.5); LYMPHOCYTES % (AUTO) 17.6 % (22.0-44.0); MEAN CORPUSCULAR HEMOGLOBIN 31.1 pg (26.0-34.0); MEAN CORPUSCULAR HGB CONC 34.3 G/dL (31.0-37.0); MEAN CORPUSCULAR VOLUME 91 fL (80-100); MONOCYTES # (AUTO) 0.5 K/uL (0.1-1.0); MONOCYTES % (AUTO) 9.7 % (2.0-9.0); NEUTROPHILS # (AUTO) 3.9 K/uL (1.8-7.7); NEUTROPHILS % (AUTO) 69.7 % (40.0-70.0); PLATELET COUNT (AUTO) 167 K/uL (150-450); RED BLOOD CELL COUNT(AUTO) 2.74 MIL/uL (4.50-5.90); RED CELL DISTRIBUTION WIDTH 18.2 % (11.5-14.5)
[2023-02-09 06:26] LABS: ALANINE AMINOTRANSFERASE 33 U/L (12-78); ALKALINE PHOSPHATASE 91 U/L (46-116); ANION GAP 5 mmol/L (8-16); ASPARTATE AMINOTRANSFERASE 35 U/L (15-37); BILIRUBIN,TOTAL 0.6 mg/dL (0.1-1.0); CALCIUM, TOTAL 8.3 mg/dL (8.8-10.5); CARBON DIOXIDE 30 mmol/L (22-29); CHLORIDE 108 mmol/L (98-107); CREATININE 0.95 mg/dL (0.60-1.30); GLOMERULAR FILTR. RATE CALC > 60 mL/min (>60); GLUCOSE,RANDOM 80 mg/dL (70-110); POTASSIUM 3.9 mmol/L (3.5-5.1); SODIUM SERUM 143 mmol/L (136-145); TOTAL PROTEIN, SERUM 5.5 g/dL (6.4-8.2); UREA NITROGEN, BLOOD 20 mg/dL (7-18)
[2023-02-09 06:56] LABS: GLUCOSE,POINT OF CARE 68 MG/DL (70-110)
[2023-02-09 07:51] LABS: GLUCOSE,POINT OF CARE 109 MG/DL (70-110)
[2023-02-09 08:00] VITALS: BP 100/51
[2023-02-09] MEDS: DOCUSATE SODIUM 100 MG/10 ML LIQUID UDCUP NG SCH ×2 (08:09→22:05)
[2023-02-09] MEDS: PANTOPRAZOLE SODIUM 40 MG/VIAL IVP SCH (08:09)
[2023-02-09 12:00] VITALS: BP 102/51
[2023-02-09] MEDS: DEXMEDETOMIDINE HCL 400 MCG in SODIUM CHLORIDE 0.9% 96 ML IV PRN (12:47)
[2023-02-09] MEDS ORDERED: EPINEPHrine 1:10,000 [1 MG/10 ML] SYRINGE IVP ONE (14:39)
[2023-02-09] MEDS ORDERED: EPINEPHrine 1:10,000 [1 MG/10 ML] SYRINGE ONE (15:50)
[2023-02-09 16:00] VITALS: BP 124/56
[2023-02-09] MEDS ORDERED: SODIUM CHLORIDE 0.9% 1,000 ML ONE (16:22)
[2023-02-09 19:46] LABS: GLUCOSE,POINT OF CARE 74 MG/DL (70-110)
[2023-02-09 20:00] VITALS: BP 137/66
[2023-02-09 20:51] LABS: GLUCOSE,POINT OF CARE 70 MG/DL (70-110)
[2023-02-10] VITALS: BP 135/67
[2023-02-10 00:11] LABS: GLUCOSE,POINT OF CARE 66 MG/DL (70-110)
[2023-02-10 00:28] LABS: APPEARANCE,URINE CLEAR (CLEAR); BILIRUBIN,URINE NEGATIVE (NEGATIVE); GLUCOSE, URINE (UA) NEGATIVE (NEGATIVE); KETONES,URINE TRACE mg/dL (NEGATIVE); LEUKOCYTE ESTERASE ,URINE NEGATIVE (NEGATIVE); NITRATE,URINE NEGATIVE (NEGATIVE); OCCULT BLOOD,URINE LARGE (NEGATIVE); PROTEIN,URINE TRACE mg/dL (NEGATIVE); SPECIFIC GRAVITIY, URINE 1.017 (1.003-1.030); UROBILINOGEN,URINE <=1.0 mg/dL (<=1.0)
[2023-02-10 00:37] LABS: BACTERIA,URINE None Seen /HPF (None Seen); SQUAMOUS EPITHELIAL CELL,UR None Seen /LPF (None Seen); WBC,URINE 0-2 /HPF (0-5)
[2023-02-10] MEDS: DEXMEDETOMIDINE HCL 400 MCG in SODIUM CHLORIDE 0.9% 96 ML IV PRN ×2 (00:40→21:37)
[2023-02-10 04:00] VITALS: BP 130/67
[2023-02-10 04:26] LABS: GLUCOSE,POINT OF CARE 74 MG/DL (70-110)
[2023-02-10] MEDS: DEXTROSE 50%-WATER 25 GM/50 ML SYRINGE IVP PRN ×2 (06:11→12:52)
[2023-02-10 06:48] LABS: BASOPHILS % (AUTO) 1.4 % (0.0-2.0); EOSINOPHILS % (AUTO) 4.3 % (1.0-6.0); HEMATOCRIT 25.2 % (41-53); HEMOGLOBIN 8.6 g/dL (13.5-17.5); LYMPHOCYTES # (AUTO) 0.8 K/uL (1.0-4.8); LYMPHOCYTES % (AUTO) 16.5 % (22.0-44.0); MEAN CORPUSCULAR HEMOGLOBIN 31.3 pg (26.0-34.0); MEAN CORPUSCULAR HGB CONC 34.2 G/dL (31.0-37.0); MEAN CORPUSCULAR VOLUME 92 fL (80-100); MONOCYTES # (AUTO) 0.4 K/uL (0.1-1.0); MONOCYTES % (AUTO) 7.2 % (2.0-9.0); NEUTROPHILS # (AUTO) 3.4 K/uL (1.8-7.7); NEUTROPHILS % (AUTO) 70.6 % (40.0-70.0); PLATELET COUNT (AUTO) 140 K/uL (150-450); RED BLOOD CELL COUNT(AUTO) 2.75 MIL/uL (4.50-5.90); RED CELL DISTRIBUTION WIDTH 17.7 % (11.5-14.5)
[2023-02-10 06:51] LABS: GLUCOSE,POINT OF CARE 60 MG/DL (70-110)
[2023-02-10 07:12] LABS: ALANINE AMINOTRANSFERASE 24 U/L (12-78); ALBUMIN 1.9 g/dL (3.4-5.0); ALKALINE PHOSPHATASE 78 U/L (46-116); ANION GAP 6 mmol/L (8-16); ASPARTATE AMINOTRANSFERASE 29 U/L (15-37); BILIRUBIN,TOTAL 0.7 mg/dL (0.1-1.0); CALCIUM, TOTAL 8.1 mg/dL (8.8-10.5); CARBON DIOXIDE 29 mmol/L (22-29); CHLORIDE 109 mmol/L (98-107); CREATININE 1.07 mg/dL (0.60-1.30); GLOMERULAR FILTR. RATE CALC > 60 mL/min (>60); GLUCOSE,RANDOM 161 mg/dL (70-110); POTASSIUM 3.8 mmol/L (3.5-5.1); SODIUM SERUM 144 mmol/L (136-145); TOTAL PROTEIN, SERUM 5.2 g/dL (6.4-8.2); UREA NITROGEN, BLOOD 21 mg/dL (7-18)
[2023-02-10 07:42] LABS: GLUCOSE,POINT OF CARE 133 MG/DL (70-110)
[2023-02-10 08:00] VITALS: BP 106/64
[2023-02-10] MEDS: DOCUSATE SODIUM 100 MG/10 ML LIQUID UDCUP NG SCH ×2 (08:22→21:37)
[2023-02-10] MEDS: PANTOPRAZOLE SODIUM 40 MG/VIAL IVP SCH (08:24)
[2023-02-10] MEDS: SCOPOLAMINE HYDROBROMIDE 1 MG/72 HOUR PATCH TD SCH (08:24)
[2023-02-10 10:55] LABS: ABG CARBOXYHEMOGLOBIN 1.4 % (0.0-1.5); ABG HCO3 27.9 mmol/L (22.0-26.0); ABG METHEMOGLOBIN 0.3 % (0.0-1.5); ABG OXYGEN SATURATION 94.8 % (95.0-98.0); ABG OXYHEMOGLOBIN 93.2 % (94.0-100.0); ABG PCO2 34 mmHg (35-45); ABG PH 7.514 (7.35-7.450); ABG TOTAL HEMOGLOBIN 9.1 G/dL (12.0-18.0); PO2, ARTERIAL BG 70.7 mmHg (75.0-83.0); SOURCE, BLOOD GAS ARTERIAL; TEMPERATURE, FAHRENHEIT, BG 98.1 FAHREN (96.0-98.6)
[2023-02-10 10:58] LABS: ABG A-A DIFF O2 103.2 mmHg (10-20.0); O2 DEVICE,BLOOD GAS VENTILATOR (ROOM AIR); SITE, BLOOD GAS LFT RADIAL
[2023-02-10 10:59] LABS: PEEP,BG 0 cm H2O; PRESSURE SUPPORT, BG 8 cm H2O; SPONTANEOUS VT, BG 391 ml; VENT MODE, BG Press. Support Vent. (ROOM AIR)
[2023-02-10 12:00] VITALS: BP 141/71
[2023-02-10 12:11] LABS: GLUCOSE,POINT OF CARE 68 MG/DL (70-110)
[2023-02-10] MEDS: FUROSEMIDE 40 MG/4 ML VIAL IVP SCH (12:52)
[2023-02-10 15:35] LABS: GLUCOSE,POINT OF CARE 120 MG/DL (70-110)
[2023-02-10 16:00] VITALS: BP 120/53
[2023-02-10 19:55] LABS: GLUCOSE,POINT OF CARE 88 MG/DL (70-110)
[2023-02-10 20:00] VITALS: BP 132/56
[2023-02-10] MEDS: APIXABAN 5 MG TABLET PO SCH (21:37)
[2023-02-11] VITALS: BP 121/52
[2023-02-11 00:42] LABS: GLUCOSE,POINT OF CARE 90 MG/DL (70-110)
[2023-02-11 04:00] VITALS: BP 122/58
[2023-02-11 05:56] LABS: GLUCOSE,POINT OF CARE 101 MG/DL (70-110)
[2023-02-11 06:03] LABS: BASOPHILS % (AUTO) 0.9 % (0.0-2.0); EOSINOPHILS % (AUTO) 4.7 % (1.0-6.0); HEMATOCRIT 24.8 % (41-53); HEMOGLOBIN 8.6 g/dL (13.5-17.5); LYMPHOCYTES # (AUTO) 0.8 K/uL (1.0-4.8); LYMPHOCYTES % (AUTO) 12.7 % (22.0-44.0); MEAN CORPUSCULAR HEMOGLOBIN 31.3 pg (26.0-34.0); MEAN CORPUSCULAR HGB CONC 34.8 G/dL (31.0-37.0); MEAN CORPUSCULAR VOLUME 90 fL (80-100); MONOCYTES # (AUTO) 0.5 K/uL (0.1-1.0); MONOCYTES % (AUTO) 8.2 % (2.0-9.0); NEUTROPHILS # (AUTO) 4.4 K/uL (1.8-7.7); NEUTROPHILS % (AUTO) 73.5 % (40.0-70.0); PLATELET COUNT (AUTO) 155 K/uL (150-450); RED BLOOD CELL COUNT(AUTO) 2.76 MIL/uL (4.50-5.90); RED CELL DISTRIBUTION WIDTH 17.2 % (11.5-14.5)
[2023-02-11 06:24] LABS: ALANINE AMINOTRANSFERASE 25 U/L (12-78); ALKALINE PHOSPHATASE 86 U/L (46-116); ANION GAP 5 mmol/L (8-16); ASPARTATE AMINOTRANSFERASE 31 U/L (15-37); BILIRUBIN,TOTAL 0.6 mg/dL (0.1-1.0); CALCIUM, TOTAL 8.2 mg/dL (8.8-10.5); CARBON DIOXIDE 31 mmol/L (22-29); CHLORIDE 109 mmol/L (98-107); CREATININE 1.08 mg/dL (0.60-1.30); GLOMERULAR FILTR. RATE CALC > 60 mL/min (>60); GLUCOSE,RANDOM 104 mg/dL (70-110); POTASSIUM 3.5 mmol/L (3.5-5.1); SODIUM SERUM 145 mmol/L (136-145); TOTAL PROTEIN, SERUM 5.5 g/dL (6.4-8.2); UREA NITROGEN, BLOOD 21 mg/dL (7-18)
[2023-02-11 08:00] VITALS: BP 118/57
[2023-02-11] MEDS: PANTOPRAZOLE SODIUM 40 MG/VIAL IVP SCH (08:53)
[2023-02-11] MEDS: APIXABAN 5 MG TABLET PO SCH ×2 (08:53→21:30)
[2023-02-11] MEDS: DOCUSATE SODIUM 100 MG/10 ML LIQUID UDCUP NG SCH ×2 (08:53→21:30)
[2023-02-11 12:00] VITALS: BP 113/53
[2023-02-11 12:11] LABS: GLUCOSE,POINT OF CARE 103 MG/DL (70-110)
[2023-02-11 16:00] VITALS: BP 114/60
[2023-02-11 18:36] LABS: GLUCOSE,POINT OF CARE 100 MG/DL (70-110)
[2023-02-11 20:00] VITALS: BP 127/57
[2023-02-11] MEDS: DEXMEDETOMIDINE HCL 400 MCG in SODIUM CHLORIDE 0.9% 96 ML IV PRN (21:32)
[2023-02-12] VITALS (9 sets, daily range): BP systolic 97–125; BP diastolic 42–67
[2023-02-12 03:16] LABS: GLUCOSE,POINT OF CARE 99 MG/DL (70-110)
[2023-02-12 06:14] LABS: EOSINOPHILS % (AUTO) 5.7 % (1.0-6.0); HEMATOCRIT 25.7 % (41-53); HEMOGLOBIN 8.6 g/dL (13.5-17.5); LYMPHOCYTES # (AUTO) 0.9 K/uL (1.0-4.8); LYMPHOCYTES % (AUTO) 14.2 % (22.0-44.0); MEAN CORPUSCULAR HEMOGLOBIN 30.6 pg (26.0-34.0); MEAN CORPUSCULAR HGB CONC 33.7 G/dL (31.0-37.0); MEAN CORPUSCULAR VOLUME 91 fL (80-100); MONOCYTES # (AUTO) 0.5 K/uL (0.1-1.0); MONOCYTES % (AUTO) 8.3 % (2.0-9.0); NEUTROPHILS # (AUTO) 4.3 K/uL (1.8-7.7); NEUTROPHILS % (AUTO) 70.8 % (40.0-70.0); PLATELET COUNT (AUTO) 152 K/uL (150-450); RED BLOOD CELL COUNT(AUTO) 2.83 MIL/uL (4.50-5.90); RED CELL DISTRIBUTION WIDTH 17.1 % (11.5-14.5)
[2023-02-12 06:25] LABS: ANION GAP 4 mmol/L (8-16); CALCIUM, TOTAL 8.2 mg/dL (8.8-10.5); CARBON DIOXIDE 31 mmol/L (22-29); CHLORIDE 110 mmol/L (98-107); CREATININE 1.07 mg/dL (0.60-1.30); GLOMERULAR FILTR. RATE CALC > 60 mL/min (>60); GLUCOSE,RANDOM 94 mg/dL (70-110); POTASSIUM 3.7 mmol/L (3.5-5.1); SODIUM SERUM 145 mmol/L (136-145); UREA NITROGEN, BLOOD 22 mg/dL (7-18)
[2023-02-12] MEDS: DOCUSATE SODIUM 100 MG/10 ML LIQUID UDCUP NG SCH ×2 (08:32→21:00)
[2023-02-12] MEDS: APIXABAN 5 MG TABLET PO SCH ×2 (08:32→21:01)
[2023-02-12] MEDS: FUROSEMIDE 40 MG/4 ML VIAL IVP SCH (08:32)
[2023-02-12] MEDS: PANTOPRAZOLE SODIUM 40 MG/VIAL IVP SCH (08:33)
[2023-02-12] MEDS: ACETAMINOPHEN 325 MG TABLET PO PRN ×2 (10:08→19:57)
[2023-02-12 10:11] LABS: GLUCOSE,POINT OF CARE 82 MG/DL (70-110)
[2023-02-12 18:00] LABS: GLUCOSE,POINT OF CARE 91 MG/DL (70-110)
[2023-02-12] MEDS ORDERED: SODIUM CHLORIDE 0.9% 250 ML IV ONE ×2 (20:21→23:33)
[2023-02-12] MEDS: PIPERACILLIN/TAZO 3.375 GM/D5W 50 ML IV SCH (21:02)
[2023-02-12 23:57] LABS: GLUCOSE,POINT OF CARE 108 MG/DL (70-110)
[2023-02-13 01:01] LABS: GLUCOSE,POINT OF CARE 94 MG/DL (70-110)
[2023-02-13] MEDS: PIPERACILLIN/TAZO 3.375 GM/D5W 50 ML IV SCH ×4 (02:24→20:01)
[2023-02-13 04:00] VITALS: BP 121/50
[2023-02-13 05:55] LABS: EOSINOPHILS % (AUTO) 6.6 % (1.0-6.0); HEMATOCRIT 24.7 % (41-53); HEMOGLOBIN 8.4 g/dL (13.5-17.5); LYMPHOCYTES # (AUTO) 0.7 K/uL (1.0-4.8); LYMPHOCYTES % (AUTO) 12.9 % (22.0-44.0); MEAN CORPUSCULAR HGB CONC 34.1 G/dL (31.0-37.0); MEAN CORPUSCULAR VOLUME 91 fL (80-100); MONOCYTES # (AUTO) 0.4 K/uL (0.1-1.0); MONOCYTES % (AUTO) 7.9 % (2.0-9.0); NEUTROPHILS # (AUTO) 3.9 K/uL (1.8-7.7); NEUTROPHILS % (AUTO) 71.6 % (40.0-70.0); PLATELET COUNT (AUTO) 141 K/uL (150-450); RED BLOOD CELL COUNT(AUTO) 2.72 MIL/uL (4.50-5.90)
[2023-02-13 05:56] LABS: ANION GAP 4 mmol/L (8-16); CALCIUM, TOTAL 8.4 mg/dL (8.8-10.5); CARBON DIOXIDE 33 mmol/L (22-29); CHLORIDE 105 mmol/L (98-107); CREATININE 1.11 mg/dL (0.60-1.30); GLOMERULAR FILTR. RATE CALC > 60 mL/min (>60); GLUCOSE,RANDOM 108 mg/dL (70-110); POTASSIUM 3.3 mmol/L (3.5-5.1); SODIUM SERUM 142 mmol/L (136-145); UREA NITROGEN, BLOOD 25 mg/dL (7-18)
[2023-02-13 08:30] VITALS: BP 132/57
[2023-02-13] MEDS: PANTOPRAZOLE SODIUM 40 MG/VIAL IVP SCH (08:31)
[2023-02-13] MEDS: SCOPOLAMINE HYDROBROMIDE 1 MG/72 HOUR PATCH TD SCH (08:32)
[2023-02-13] MEDS: DOCUSATE SODIUM 100 MG/10 ML LIQUID UDCUP NG SCH ×2 (08:32→21:00)
[2023-02-13] MEDS: APIXABAN 5 MG TABLET PO SCH (08:32)
[2023-02-13] MEDS: HYDROCODONE/ACETAMINOPHEN 5-325 MG TABLET PO PRN (08:33)
[2023-02-13 09:00] VITALS: BP 105/45
[2023-02-13] MEDS ORDERED: POTASSIUM CHL 10 MEQ/WATER 50 ML IV PRN (09:00)
[2023-02-13] MEDS ORDERED: POTASSIUM CHLORIDE 20 MEQ ER TABLET PO PRN (09:00)
[2023-02-13] MEDS ORDERED: POTASSIUM CHLORIDE 10% 40 MEQ/30 ML LIQUID UDCUP GT PRN (09:30)
[2023-02-13] MEDS ORDERED: HEPARIN SODIUM,PORCINE 5,000 UNITS/ML VIAL IVP PRN (10:15)
[2023-02-13 10:43] LABS: INR 1.2 (0.9-1.1); PROTHROMBIN TIME 12.6 SEC (9.4-11.6)
[2023-02-13] MEDS: HEPARIN SODIUM 25000 UNITS/D5W 250 ML IV PRN (10:52)
[2023-02-13 11:21] LABS: GLUCOSE,POINT OF CARE 95 MG/DL (70-110)
[2023-02-13 12:00] VITALS: BP 110/50
[2023-02-13 16:00] VITALS: BP 121/52
[2023-02-13 16:50] LABS: OCCULT BLOOD,GASTRIC FLUID NEGATIVE (NEGATIVE)
[2023-02-13 18:27] LABS: GLUCOSE,POINT OF CARE 103 MG/DL (70-110)
[2023-02-13 20:00] VITALS: BP 125/57
[2023-02-13 20:41] LABS: GLUCOSE,POINT OF CARE 92 MG/DL (70-110)
[2023-02-14] VITALS: BP 138/61
[2023-02-14] MEDS: PIPERACILLIN/TAZO 3.375 GM/D5W 50 ML IV SCH ×4 (03:29→20:52)
[2023-02-14 04:00] VITALS: BP 117/46
[2023-02-14 05:50] LABS: ANION GAP 3 mmol/L (8-16); CALCIUM, TOTAL 8.2 mg/dL (8.8-10.5); CARBON DIOXIDE 32 mmol/L (22-29); CHLORIDE 109 mmol/L (98-107); CREATININE 1.08 mg/dL (0.60-1.30); EOSINOPHILS % (AUTO) 7.7 % (1.0-6.0); GLOMERULAR FILTR. RATE CALC > 60 mL/min (>60); GLUCOSE,RANDOM 103 mg/dL (70-110); HEMOGLOBIN 7.9 g/dL (13.5-17.5); LYMPHOCYTES # (AUTO) 0.7 K/uL (1.0-4.8); LYMPHOCYTES % (AUTO) 15.3 % (22.0-44.0); MEAN CORPUSCULAR HEMOGLOBIN 29.9 pg (26.0-34.0); MEAN CORPUSCULAR HGB CONC 32.9 G/dL (31.0-37.0); MEAN CORPUSCULAR VOLUME 91 fL (80-100); MONOCYTES # (AUTO) 0.3 K/uL (0.1-1.0); MONOCYTES % (AUTO) 7.3 % (2.0-9.0); NEUTROPHILS # (AUTO) 3.1 K/uL (1.8-7.7); NEUTROPHILS % (AUTO) 68.7 % (40.0-70.0); PLATELET COUNT (AUTO) 134 K/uL (150-450); POTASSIUM 3.9 mmol/L (3.5-5.1); RED BLOOD CELL COUNT(AUTO) 2.64 MIL/uL (4.50-5.90); RED CELL DISTRIBUTION WIDTH 16.9 % (11.5-14.5); SODIUM SERUM 144 mmol/L (136-145); UREA NITROGEN, BLOOD 22 mg/dL (7-18)
[2023-02-14 07:31] LABS: GLUCOSE,POINT OF CARE 94 MG/DL (70-110)
[2023-02-14 07:31] LABS: GLUCOSE,POINT OF CARE 96 MG/DL (70-110)
[2023-02-14 08:00] VITALS: BP 118/55
[2023-02-14] MEDS: DOCUSATE SODIUM 100 MG/10 ML LIQUID UDCUP NG SCH ×2 (08:20→21:14)
[2023-02-14] MEDS: FUROSEMIDE 40 MG/4 ML VIAL IVP SCH (08:21)
[2023-02-14] MEDS: PANTOPRAZOLE SODIUM 40 MG/VIAL IVP SCH (08:21)
[2023-02-14] MEDS: HEPARIN SODIUM,PORCINE 5,000 UNITS/ML VIAL IVP PRN ×2 (08:22→18:05)
[2023-02-14] MEDS: HYDROCODONE/ACETAMINOPHEN 5-325 MG TABLET PO PRN (08:22)
[2023-02-14] MEDS: HEPARIN SODIUM 25000 UNITS/D5W 250 ML IV PRN (08:40)
[2023-02-14 12:00] VITALS: BP 95/43
[2023-02-14 12:01] LABS: GLUCOSE,POINT OF CARE 90 MG/DL (70-110)
[2023-02-14 16:00] VITALS: BP 111/47
[2023-02-14 17:20] LABS: INR 1.1 (0.9-1.1)
[2023-02-14 20:00] VITALS: BP 112/49
[2023-02-15] VITALS: BP 114/53
[2023-02-15] MEDS: HYDROCODONE/ACETAMINOPHEN 5-325 MG TABLET PO PRN (02:50)
[2023-02-15] MEDS: PIPERACILLIN/TAZO 3.375 GM/D5W 50 ML IV SCH ×2 (02:50→08:37)
[2023-02-15 04:00] VITALS: BP 90/45
[2023-02-15 04:01] LABS: GLUCOSE,POINT OF CARE 88 MG/DL (70-110)
[2023-02-15 05:42] LABS: GLUCOSE,POINT OF CARE 72 MG/DL (70-110)
[2023-02-15 06:02] LABS: EOSINOPHILS % (AUTO) 7.1 % (1.0-6.0); HEMATOCRIT 24.3 % (41-53); HEMOGLOBIN 8.3 g/dL (13.5-17.5); LYMPHOCYTES # (AUTO) 0.8 K/uL (1.0-4.8); MEAN CORPUSCULAR HEMOGLOBIN 30.6 pg (26.0-34.0); MEAN CORPUSCULAR VOLUME 90 fL (80-100); MONOCYTES # (AUTO) 0.4 K/uL (0.1-1.0); MONOCYTES % (AUTO) 7.8 % (2.0-9.0); NEUTROPHILS # (AUTO) 3.2 K/uL (1.8-7.7); NEUTROPHILS % (AUTO) 68.1 % (40.0-70.0); PLATELET COUNT (AUTO) 144 K/uL (150-450); RED BLOOD CELL COUNT(AUTO) 2.69 MIL/uL (4.50-5.90); RED CELL DISTRIBUTION WIDTH 16.7 % (11.5-14.5)
[2023-02-15 06:08] LABS: ANION GAP 3 mmol/L (8-16); CALCIUM, TOTAL 8.3 mg/dL (8.8-10.5); CARBON DIOXIDE 32 mmol/L (22-29); CHLORIDE 104 mmol/L (98-107); CREATININE 1.14 mg/dL (0.60-1.30); GLOMERULAR FILTR. RATE CALC > 60 mL/min (>60); GLUCOSE,RANDOM 82 mg/dL (70-110); POTASSIUM 3.5 mmol/L (3.5-5.1); SODIUM SERUM 139 mmol/L (136-145); UREA NITROGEN, BLOOD 21 mg/dL (7-18)
[2023-02-15 08:00] VITALS: BP 97/70
[2023-02-15] MEDS ORDERED: SODIUM CHLORIDE 0.9% 250 ML IV ONE ×2 (08:05→20:12)
[2023-02-15] MEDS: PANTOPRAZOLE SODIUM 40 MG/VIAL IVP SCH (08:38)
[2023-02-15] MEDS: FUROSEMIDE 40 MG/4 ML VIAL IVP SCH (08:38)
[2023-02-15] MEDS: DOCUSATE SODIUM 100 MG/10 ML LIQUID UDCUP NG SCH ×2 (08:38→19:49)
[2023-02-15] MEDS ORDERED: ROCURONIUM BROMIDE 10 MG/ML 5 ML VIAL IVP ONE (09:00)
[2023-02-15] MEDS: FentaNYL CIT 1000MCG/0.9% NACL 100 ML IV PRN ×2 (09:44→18:44)
[2023-02-15 12:00] VITALS: BP 109/52
[2023-02-15] MEDS ORDERED: VANCOMYCIN HCL 1 GM/D5% WATER 200 ML IV ONE (15:00)
[2023-02-15 16:00] VITALS: BP 96/47
[2023-02-15 18:51] LABS: GLUCOSE,POINT OF CARE 68 MG/DL (70-110)
[2023-02-15 18:51] LABS: GLUCOSE,POINT OF CARE 93 MG/DL (70-110)
[2023-02-15] MEDS: VANCOMYCIN HCL 1 GM/D5% WATER 200 ML IV SCH (19:49)
[2023-02-15 20:00] VITALS: BP 95/46
[2023-02-16] VITALS (7 sets, daily range): BP systolic 106–123; BP diastolic 41–53
[2023-02-16 00:06] LABS: GLUCOSE,POINT OF CARE 81 MG/DL (70-110)
[2023-02-16] MEDS: HEPARIN SODIUM,PORCINE 5,000 UNITS/ML VIAL IVP PRN (00:24)
[2023-02-16] MEDS: HEPARIN SODIUM 25000 UNITS/D5W 250 ML IV PRN ×2 (00:25→17:11)
[2023-02-16 00:51] LABS: GLUCOSE,POINT OF CARE 74 MG/DL (70-110)
[2023-02-16 05:56] LABS: GLUCOSE,POINT OF CARE 86 MG/DL (70-110)
[2023-02-16 05:59] LABS: ANION GAP 6 mmol/L (8-16); CALCIUM, TOTAL 8.6 mg/dL (8.8-10.5); CARBON DIOXIDE 33 mmol/L (22-29); CHLORIDE 103 mmol/L (98-107); CREATININE 1.09 mg/dL (0.60-1.30); GLOMERULAR FILTR. RATE CALC > 60 mL/min (>60); GLUCOSE,RANDOM 98 mg/dL (70-110); POTASSIUM 3.5 mmol/L (3.5-5.1); SODIUM SERUM 142 mmol/L (136-145); UREA NITROGEN, BLOOD 21 mg/dL (7-18)
[2023-02-16] MEDS: FentaNYL CIT 1000MCG/0.9% NACL 100 ML IV PRN ×2 (06:02→20:47)
[2023-02-16] MEDS: SCOPOLAMINE HYDROBROMIDE 1 MG/72 HOUR PATCH TD SCH (08:10)
[2023-02-16] MEDS: VANCOMYCIN HCL 1 GM/D5% WATER 200 ML IV SCH ×2 (08:10→20:16)
[2023-02-16] MEDS: FUROSEMIDE 40 MG/4 ML VIAL IVP SCH (08:11)
[2023-02-16] MEDS: PANTOPRAZOLE SODIUM 40 MG/VIAL IVP SCH (08:11)
[2023-02-16] MEDS: DOCUSATE SODIUM 100 MG/10 ML LIQUID UDCUP NG SCH ×2 (08:12→21:00)
[2023-02-16] MEDS ORDERED: SODIUM CHLORIDE 0.9% 250 ML IV ONE (10:20)
[2023-02-16] MEDS: HYDROCODONE/ACETAMINOPHEN 5-325 MG TABLET PO PRN ×2 (10:32→14:48)
[2023-02-17] VITALS: BP 104/69
[2023-02-17 04:00] VITALS: BP 141/68
[2023-02-17] MEDS: FentaNYL CIT 1000MCG/0.9% NACL 100 ML IV PRN ×3 (05:22→20:21)
[2023-02-17 06:26] LABS: BASOPHILS % (AUTO) 0.5 % (0.0-2.0); EOSINOPHILS % (AUTO) 6.2 % (1.0-6.0); HEMATOCRIT 22.2 % (41-53); HEMOGLOBIN 7.6 g/dL (13.5-17.5); LYMPHOCYTES # (AUTO) 0.8 K/uL (1.0-4.8); LYMPHOCYTES % (AUTO) 18.8 % (22.0-44.0); MEAN CORPUSCULAR HEMOGLOBIN 30.7 pg (26.0-34.0); MEAN CORPUSCULAR HGB CONC 34.3 G/dL (31.0-37.0); MEAN CORPUSCULAR VOLUME 90 fL (80-100); MONOCYTES # (AUTO) 0.4 K/uL (0.1-1.0); NEUTROPHILS # (AUTO) 2.8 K/uL (1.8-7.7); NEUTROPHILS % (AUTO) 65.5 % (40.0-70.0); PLATELET COUNT (AUTO) 138 K/uL (150-450); RED BLOOD CELL COUNT(AUTO) 2.48 MIL/uL (4.50-5.90); RED CELL DISTRIBUTION WIDTH 16.7 % (11.5-14.5)
[2023-02-17 06:38] LABS: ANION GAP 0 mmol/L (8-16); CALCIUM, TOTAL 8.5 mg/dL (8.8-10.5); CARBON DIOXIDE 35 mmol/L (22-29); CHLORIDE 103 mmol/L (98-107); CREATININE 0.92 mg/dL (0.60-1.30); GLOMERULAR FILTR. RATE CALC > 60 mL/min (>60); GLUCOSE,RANDOM 87 mg/dL (70-110); POTASSIUM 4.2 mmol/L (3.5-5.1); SODIUM SERUM 138 mmol/L (136-145); UREA NITROGEN, BLOOD 21 mg/dL (7-18); VANCOMYCIN,RANDOM 23.3 mcg/mL (25.0-50.0)
[2023-02-17 06:47] LABS: GLUCOSE,POINT OF CARE 112 MG/DL (70-110)
[2023-02-17 06:47] LABS: GLUCOSE,POINT OF CARE 85 MG/DL (70-110)
[2023-02-17 06:47] LABS: GLUCOSE,POINT OF CARE 84 MG/DL (70-110)
[2023-02-17 06:47] LABS: GLUCOSE,POINT OF CARE 111 MG/DL (70-110)
[2023-02-17 08:00] VITALS: BP 119/52
[2023-02-17] MEDS: VANCOMYCIN HCL 1 GM/D5% WATER 200 ML IV SCH ×2 (08:38→20:31)
[2023-02-17] MEDS: PANTOPRAZOLE SODIUM 40 MG/VIAL IVP SCH (08:38)
[2023-02-17] MEDS: DOCUSATE SODIUM 100 MG/10 ML LIQUID UDCUP NG SCH ×2 (08:38→20:31)
[2023-02-17 12:00] VITALS: BP 119/52
[2023-02-17] MEDS: HEPARIN SODIUM 25000 UNITS/D5W 250 ML IV PRN (12:18)
[2023-02-17 16:00] VITALS: BP 115/46
[2023-02-17 19:16] LABS: GLUCOSE,POINT OF CARE 91 MG/DL (70-110)
[2023-02-17 20:00] VITALS: BP 110/62
[2023-02-17] MEDS: ACETAMINOPHEN 325 MG TABLET PO PRN (20:33)
[2023-02-18] VITALS: BP 120/60
[2023-02-18 01:46] LABS: GLUCOSE,POINT OF CARE 88 MG/DL (70-110)
[2023-02-18 04:00] VITALS: BP 130/90
[2023-02-18] MEDS: FentaNYL CIT 1000MCG/0.9% NACL 100 ML IV PRN (04:55)
[2023-02-18 06:31] LABS: ALBUMIN 2.3 g/dL (3.4-5.0); ANION GAP 0 mmol/L (8-16); CALCIUM, TOTAL 8.9 mg/dL (8.8-10.5); CARBON DIOXIDE 34 mmol/L (22-29); CHLORIDE 107 mmol/L (98-107); CREATININE 0.91 mg/dL (0.60-1.30); GLOMERULAR FILTR. RATE CALC > 60 mL/min (>60); GLUCOSE,RANDOM 94 mg/dL (70-110); POTASSIUM 4.8 mmol/L (3.5-5.1); SODIUM SERUM 141 mmol/L (136-145); UREA NITROGEN, BLOOD 22 mg/dL (7-18)
[2023-02-18] MEDS ORDERED: SODIUM CHLORIDE 0.9% 250 ML IV ONE (08:06)
[2023-02-18] MEDS: PANTOPRAZOLE SODIUM 40 MG/VIAL IVP SCH (08:09)
[2023-02-18] MEDS: FUROSEMIDE 40 MG/4 ML VIAL IVP SCH (08:09)
[2023-02-18] MEDS: VANCOMYCIN HCL 1 GM/D5% WATER 200 ML IV SCH (08:09)
[2023-02-18] MEDS: DOCUSATE SODIUM 100 MG/10 ML LIQUID UDCUP NG SCH (08:09)
[2023-02-18] MEDS: HEPARIN SODIUM 25000 UNITS/D5W 250 ML IV PRN (08:27)
[2023-02-18 11:51] LABS: GLUCOSE,POINT OF CARE 85 MG/DL (70-110)
== END 2023-02-18 11:00 | DRG 4 ==
LOC: EMS 11:33 → AHU 14:21 → ICU 19:41 → 5S 01-30 18:40 → ICU 02-08 17:22
PROVIDERS: ADMIT Hospitalist; ATTEND Hospitalist
PROC: 0WQ0XZZ Repair Head, External Approach (ICD-10-PCS; 2023-01-17)
PROC: 05HD33Z Insertion of Infusion Device into Right Cephalic Vein, Percutaneous Approach (ICD-10-PCS; 2023-01-18)
PROC: 5A0935A Assistance with Respiratory Ventilation, Less than 24 Consecutive Hours, High Flow/Velocity Cannula (ICD-10-PCS; 2023-01-19)
PROC: 5A1955Z Respiratory Ventilation, Greater than 96 Consecutive Hours (ICD-10-PCS; principal; 2023-01-20)
PROC: 0BH17EZ Insertion of Endotracheal Airway into Trachea, Via Natural or Artificial Opening (ICD-10-PCS; 2023-01-20)
PROC: 5A12012 Performance of Cardiac Output, Single, Manual (ICD-10-PCS; 2023-01-20)
PROC: 5A09357 Assistance with Respiratory Ventilation, Less than 24 Consecutive Hours, Continuous Positive Airway Pressure (ICD-10-PCS; 2023-01-20)
PROC: 0B9F8ZX Drainage of Right Lower Lung Lobe, Via Natural or Artificial Opening Endoscopic, Diagnostic (ICD-10-PCS; 2023-01-21)
PROC: 5A1D70Z Performance of Urinary Filtration, Intermittent, Less than 6 Hours Per Day (ICD-10-PCS; 2023-01-22)
PROC: 5A1D70Z Performance of Urinary Filtration, Intermittent, Less than 6 Hours Per Day (ICD-10-PCS; 2023-01-23)
PROC: 5A1D70Z Performance of Urinary Filtration, Intermittent, Less than 6 Hours Per Day (ICD-10-PCS; 2023-01-25)
PROC: 05HF33Z Insertion of Infusion Device into Left Cephalic Vein, Percutaneous Approach (ICD-10-PCS; 2023-01-28)
PROC: 5A12012 Performance of Cardiac Output, Single, Manual (ICD-10-PCS; 2023-02-08)
PROC: 5A1955Z Respiratory Ventilation, Greater than 96 Consecutive Hours (ICD-10-PCS; 2023-02-08)
PROC: 0DB68ZX Excision of Stomach, Via Natural or Artificial Opening Endoscopic, Diagnostic (ICD-10-PCS; 2023-02-09)
PROC: 0DH63UZ Insertion of Feeding Device into Stomach, Percutaneous Approach (ICD-10-PCS; 2023-02-09)
PROC: 0B113F4 Bypass Trachea to Cutaneous with Tracheostomy Device, Percutaneous Approach (ICD-10-PCS; 2023-02-15)
PROC: 5A1945Z Respiratory Ventilation, 24-96 Consecutive Hours (ICD-10-PCS; 2023-02-15)
DX: A41.9 Sepsis, unspecified organism (principal); E43 Unspecified severe protein-calorie malnutrition; J69.0 Pneumonitis due to inhalation of food and vomit; J96.01 Acute respiratory failure with hypoxia; I46.9 Cardiac arrest, cause unspecified; I21.A1 Myocardial infarction type 2; R65.21 Severe sepsis with septic shock; F02.83 Dementia in other diseases classified elsewhere, unspecified severity, with mood disturbance; J21.9 Acute bronchiolitis, unspecified; N17.9 Acute kidney failure, unspecified; E87.0 Hyperosmolality and hypernatremia; G93.40 Encephalopathy, unspecified; I48.92 Unspecified atrial flutter; E87.1 Hypo-osmolality and hyponatremia; I82.611 Acute embolism and thrombosis of superficial veins of right upper extremity; I82.C11 Acute embolism and thrombosis of right internal jugular vein; Z68.28 Body mass index [BMI] 28.0-28.9, adult; D69.6 Thrombocytopenia, unspecified; E16.2 Hypoglycemia, unspecified; E83.42 Hypomagnesemia; E87.6 Hypokalemia; E87.70 Fluid overload, unspecified; G20 Parkinson's disease; F32.A Depression, unspecified; I12.9 Hypertensive chronic kidney disease with stage 1 through stage 4 chronic kidney disease, or unspecified chronic kidney disease; I48.0 Paroxysmal atrial fibrillation; R13.10 Dysphagia, unspecified; N18.9 Chronic kidney disease, unspecified; D64.9 Anemia, unspecified; R68.0 Hypothermia, not associated with low environmental temperature; K21.9 Gastro-esophageal reflux disease without esophagitis; K59.00 Constipation, unspecified; W18.39XA Other fall on same level, initial encounter; Y93.89 Activity, other specified; Y92.89 Other specified places as the place of occurrence of the external cause; Y99.8 Other external cause status; F20.9 Schizophrenia, unspecified; S01.01XA Laceration without foreign body of scalp, initial encounter; Z79.01 Long term (current) use of anticoagulants; Z79.899 Other long term (current) drug therapy
CPT/HCPCS: 31624; 36245; 36569; 36600; 70450; 71045; 71250; 72192; 74018; 74150; 76937; 80048; 80053; 80061; 80202; 81001; 81003; 82040; 82271; 82550; 82805; 82962; 83605; 83615; 83735; 83880; 84100; 84132; 84145; 84484; 85025; 85610; 85730; 86140; 87015; 87040; 87070; 87081; 87101; 87186; 87205; 87206; 87220; 87252; 87340; 87449; 87804; 87899; 88112; 88305; 88312; 88313; 90935; 92523; 92526; 92610; 92950; 93005; 93306; 93931; 93971; 94002; 94003; 94640; 94660; 94667; 94799; 97110; 97140; 97162; 97167; 97530; 97535; 99291; C9113; G0378; J0171; J0330; J0456; J0696; J1160; J1644; J1940; J2270; J2310; J2370; J2543; J2704; J3370; J3475; J3490; J7030; J7040; J7042; J7050; J7060; P9046; Q9967; 36415-L1; 36415-TC; J7613